=== PATIENT | female | born 2000 | race Caucasian/White ===

== ENCOUNTER 2019-06-28 17:02 | Emergency (ER) | payer SELFPAY ==
[2019-06-28 17:06] VITALS: BP 130/94; PULSE 107; RESP 16; TEMP 36.6; O2SAT 99; BMI 24.4
[2019-06-28 18:19] LABS: Basophils % 0.7 %; Eosinophils # 0.1 10^3/uL (0.0-0.8); Eosinophils % 2.5 %; Hematocrit 44.6 % (37.0-47.0); Hemoglobin 14.7 g/dL (11.5-15.3); Lymphocytes # 2.2 10^3/uL (0.8-4.8); Mean Corpuscular Hemoglobin 29.5 pg (28.0-34.0); Mean Corpuscular Volume 89.4 fL (81-99); Mean Platelet Volume 11.6 fL (7.4-10.4); Monocytes # 0.3 10^3/uL (0.2-0.9); Monocytes % 5.3 %; Neutrophils % 53.5 %; Nucleated Red Blood Cells % 0 %; Platelet Count 229 10^3/cmm (130-400); Red Blood Count 4.99 10^6/uL (4.1-5.3); Red Cell Distribution Width 12.9 % (12.1-15.1); White Blood Count 5.7 10^3/uL (4.0-10.0)
[2019-06-28 18:30] LABS: HCG Qualitative Urine. Negative (Negative)
[2019-06-28 18:35] LABS: Alanine Aminotransferase 8 U/L (0-33); Albumin Level 4.8 g/dL (3.5-5.2); Alkaline Phosphatase 86 IU/L (35-105); Anion Gap 13.9 (5-19); Aspartate Amino Transferase 12 U/L (0-32); Blood Urea Nitrogen 16 mg/dL (6-20); Calcium 9.8 mg/dL (8.5-10.5); Carbon Dioxide 26 mmol/L (22-29); Chloride 102 mmol/L (98-107); Globulin 2.8 g/dL (1.3-4.6); Glomerular Filtration Rate 105.6 mL/min (90-130); Glucose 127 mg/dL (65-115); Lipase 38 U/L (13-60); Potassium 3.9 mmol/L (3.5-5.1); Sodium 138 mmol/L (136-145); Total Bilirubin 0.4 mg/dL (0.15-1.2); Total Protein 7.6 g/dL (6.6-8.7)
--- NOTE | 2019-06-28 19:33 | ED_ITS ---
HPI - Abdominal Pain General: Chief Complaint: Abdominal Pain Stated Complaint: cramping Time Seen by Provider: 06/28/19 19:33 Source: patient Mode of arrival: ambulatory Limitations: no limitations History of Present Illness: HPI narrative: Patient presents with lower abdominal pain for the last 2 days. Patient has also had some whitish vaginal discharge. Patient denies any fever. Patient reports last period was May 16. Patient appears well. Patient appears in mild to moderate pain. Patient denies any vomiting or diarrhea. Associated Symptoms: Reports nausea Related Data: Date of Last Menstrual Period: 05/16/19 Review of Systems General: Reports: 10 or more systems reviewed and unremarkable except in HPI and below GI: Reports: nausea : Reports: vaginal discharge PFSH ED PFSH: Social History Smoking and tobacco status: current every day smoker Female Reproductive History: Date of last menstrual period: 05/16/19 Physical Exam Const: COMMON NORMALS: no apparent distress and oriented x3 GENERAL APPEARANCE: cooperative HENMT: COMMON NORMALS: normocephalic, external ears normal, EAC's normal, TM's normal bilaterally and external nose normal HEAD & SCALP: normal to inspection and normocephalic FACE & SINUS: normal facial exam NOSE: external nose normal GENERAL EAR: hearing not grossly impaired EXTERNAL EAR: Yes external ears normal EXTERNAL AUDITORY CANAL: EAC's normal TYMPANIC MEMBRANE: TM's normal bilaterally MOUTH: oral and palatal mucosa normal THROAT: posterior oropharynx normal Eye: COMMON NORMALS: PERRL and EOMs intact bilaterally PUPIL: Yes PERRL Neck/C-Spine: COMMON NORMALS: full ROM and no lymphadenopathy Lymph: LYMPHATIC: no lymphedema noted Chest: COMMONS NORMALS: inspection of chest normal and palpation of chest normal Resp: COMMON NORMALS: normal respiratory effort and clear to auscultation bilaterally AUSCULTATION: clear to auscultation bilaterally Cardio: COMMON NORMALS: regular rate and regular rhythm RATE: regular rate RHYTHM: regular rhythm GI: COMMON NORMALS: normal to inspection, nondistended, normoactive bowel sounds PALPATION: Yes tender (suprapubic area) : COMMON NORMALS: Yes no CVA tenderness BLADDER/KIDNEY EXAM: Yes no CVA tenderness EXTERNAL FEMALE EXAM: Yes normal appearance of the urethra SPECULUM EXAM - VAGINA: Yes vaginal tenderness (mild) and Yes vaginal discharge (light) Vaginal discharge present: malodorous (mild) Back/Pelvis: COMMON NORMALS: no CVA tenderness and thoracic and lumbar spine normal to inspection Extremity: COMMON NORMALS: normal to inspection GENERAL: No edema Neuro: COMMON NORMALS: oriented x3, moves all extremities and no focal motor deficits Psych: COMMON NORMALS: mental status grossly normal and cooperative Skin: COMMON NORMALS: no rashes or lesions noted GENERAL SKIN EXAM: no rashes or lesions noted Course Vital Signs: Vital signs: Vital Signs Temperature 97.9 F 06/28/19 17:06 Pulse Rate 74 06/28/19 21:17 Respiratory Rate 18 06/28/19 21:17 Blood Pressure 112/64 06/28/19 21:17 Pulse Oximetry 98 06/28/19 21:17 MDM - Abdominal Pain MDM Narrative: Medical decision making narrative: Patient comes in today with some vaginal discharge and some suprapubic pain. On exam patient appears well. Abdomen is soft with some suprapubic tenderness on palpation. Vital signs are stable with no fever. Differential diagnosis includes vaginitis, STI, candidiasis, UTI, threatened miscarriage. Patient was not on labs. Vitals were normal. Laboratory values were normal. Urinalysis was nonsignificant. Vaginal exam noted a positive whiff test. Wet prep did note clue cells. Reviewed exam with patient recommended treatment of clindamycin for bacterial vaginosis. Patient reports understanding agreed to plan. Lab Data: Labs: Lab Results 06/28/19 06/28/19 06/28/19 Range/Units 17:57 17:57 18:14 WBC 5.7 (4.0-10.0) 10^3/ uL RBC 4.99 (4.1-5.3) 10^6/u L Hgb 14.7 (11.5-15.3) g/dL Hct 44.6 (37.0-47.0) % MCV 89.4 (81-99) fL MCH 29.5 (28.0-34.0) pg MCHC 33.0 (30.0-36.0) g/dL RDW 12.9 (12.1-15.1) % Plt Count 229 (130-400) 10^3/c mm MPV 11.6 H (7.4-10.4) fL Neut % (Auto) 53.5 % Lymph % (Auto) 38.0 % [place] % (Auto) 5.3 % Eos % (Auto) 2.5 % Baso % (Auto) 0.7 % Neut # (Auto) 3.0 (1.8-7.7) 10^3/u L Lymph # (Auto) 2.2 (0.8-4.8) 10^3/u L [place] # (Auto) 0.3 (0.2-0.9) 10^3/u L Eos # (Auto) 0.1 (0.0-0.8) 10^3/u L Baso # (Auto) 0.0 (0.0-0.1) 10^3/u L Nucleated RBC % (a uto) 0 % Nucleated RBCs # 0.0 /100WBC Sodium 138 (136-145) mmol/L Potassium 3.9 (3.5-5.1) mmol/L Chloride 102 (98-107) mmol/L Carbon Dioxide 26 (22-29) mmol/L Anion Gap 13.9 (5-19) BUN 16 (6-20) mg/dL Creatinine 0.7 (0.5-0.9) mg/dL GFR Calculation 105.6 (90-130) mL/min Glucose 127 H (65-115) mg/dL Calcium 9.8 (8.5-10.5) mg/dL Total Bilirubin 0.4 (0.15-1.2) mg/dL AST 12 (0-32) U/L ALT 8 (0-33) U/L Alkaline Phosphata se 86 (35-105) IU/L Total Protein 7.6 (6.6-8.7) g/dL Albumin 4.8 (3.5-5.2) g/dL Globulin 2.8 (1.3-4.6) g/dL Lipase 38 (13-60) U/L HCG, Qual Negative (Negative) Discharge Plan Discharge Patient Disposition: Home, Self-Care Clinical Impression: Bacterial vaginitis Condition: Stable Prescriptions: New clindamycin HCl 150 mg capsule 150 mg PO Q8H 7 Days Qty: 21 RF: 0 Discharge Orders: Discharge Order (Routine); Ordered 06/28/19 Ordered By: John Khan Referrals: Bigg Dowell Jr, MD [Primary Care Provider] - Discharge Diet: Usual diet Discharge Activity: Increase activity as tolerated Patient Instructions: Bacterial Vaginosis (ED) Activity Restrictions/Additional Instructions: Avoid use of vaginal douche Drink plenty of fluids Activity as tolerated Antibiotics as directed Follow-up with primary care in one week for recheck Discharge Date/Time: 06/28/19 21:18 Coding Level of Care Code ED Carpenter Prototype for Minda Ibrahim Exam Problem Focused
[2019-06-28] MEDS: clindamycin 150 mg Capsule PO (21:12)
[2019-06-28 21:17] VITALS: BP 112/64; PULSE 74; RESP 18; O2SAT 98
[2019-06-29 06:01] LABS: Add Urine Microscopic? YES; Bilirubin Urine Neg (NEGATIVE); Blood Urine 2+ (Negative); Glucose Urine UA Norm (Normal); Ketones Urine Negative (Negative); Leukocyte Esterase Urine Negative (Negative); Nitrate Urine Negative (Negative); Protein Urine Neg (Negative); Urine Appearance Cloudy (CLEAR); Urine Color Yellow (Yellow); Urobilinogen Urine Norm (Negative); pH Urine 5 (5-7)
[2019-06-29 06:05] LABS: Add Urine Culture? No; RBC Urine 0-4 /hpf (0-2); Squamous Epithelial Cell Urine 0-4 (0-5); Transitional Epi Cells Urine 0-4 /hpf
[2019-06-29 06:18] LABS: Bacteria Urine TRACE
== END 2019-06-28 21:18 | disposition home or self-care (01) ==
PROVIDERS: Emergency Medicine; Emergency Provider Nurse Practitioner Family; Family Provider Family Medicine; PCP Family Medicine
DX: N76.0 Acute vaginitis (principal); F17.200 Nicotine dependence, unspecified, uncomplicated
CPT/HCPCS: 36415; 80053; 81001; 81025; 83690; 85025; 87210; 87491; 99283; A9270; E0352

== ENCOUNTER 2019-08-15 23:12 | Emergency (ER) | payer SELFPAY ==
[2019-08-15 23:16] VITALS: BP 126/85; PULSE 99; RESP 18; O2SAT 99; BMI 24.4
--- NOTE | 2019-08-15 23:18 | ED_ITS ---
HPI - Abdominal Pain General: Chief Complaint: Abdominal Pain Stated Complaint: abd pain Time Seen by Provider: 08/15/19 23:18 Source: patient Mode of arrival: ambulatory Limitations: no limitations History of Present Illness: HPI narrative: Patient comes in today with pelvic discomfort and nausea. Patient reports 3+ tests at home. Patient denies any vaginal bleeding. Patient appears well. Patient appears in no acute distress. Last period was June 16. Related Data: Date of Last Menstrual Period: 05/16/19 Review of Systems General: Reports: 10 or more systems reviewed and unremarkable except in HPI and below : Reports: urinary urgency PFSH ED PFSH: Social History Smoking and tobacco status: current every day smoker Female Reproductive History: Date of last menstrual period: 05/16/19 Physical Exam Const: COMMON NORMALS: no apparent distress and oriented x3 GENERAL APPEARANCE: cooperative HENMT: COMMON NORMALS: normocephalic, external ears normal, EAC's normal, TM's normal bilaterally and external nose normal HEAD & SCALP: normal to inspection and normocephalic FACE & SINUS: normal facial exam NOSE: external nose normal GENERAL EAR: hearing not grossly impaired EXTERNAL EAR: Yes external ears normal EXTERNAL AUDITORY CANAL: EAC's normal TYMPANIC MEMBRANE: TM's normal bilaterally MOUTH: oral and palatal mucosa normal THROAT: posterior oropharynx normal Eye: COMMON NORMALS: PERRL and EOMs intact bilaterally PUPIL: Yes PERRL Neck/C-Spine: COMMON NORMALS: full ROM and no lymphadenopathy Lymph: LYMPHATIC: no lymphedema noted Chest: COMMONS NORMALS: inspection of chest normal and palpation of chest normal Resp: COMMON NORMALS: normal respiratory effort and clear to auscultation bilaterally AUSCULTATION: clear to auscultation bilaterally Cardio: COMMON NORMALS: regular rate and regular rhythm RATE: regular rate RHYTHM: regular rhythm GI: COMMON NORMALS: normal to inspection, nondistended, normoactive bowel sounds and non-tender : COMMON NORMALS: Yes no CVA tenderness BLADDER/KIDNEY EXAM: Yes no CVA tenderness Back/Pelvis: COMMON NORMALS: no CVA tenderness and thoracic and lumbar spine normal to inspection Extremity: COMMON NORMALS: normal to inspection GENERAL: No edema Neuro: COMMON NORMALS: oriented x3, moves all extremities and no focal motor deficits Psych: COMMON NORMALS: mental status grossly normal and cooperative Skin: COMMON NORMALS: no rashes or lesions noted GENERAL SKIN EXAM: no rashes or lesions noted Course Vital Signs: Vital signs: Vital Signs Temperature 98.5 F 08/15/19 23:20 Pulse Rate 99 08/15/19 23:16 Respiratory Rate 18 08/15/19 23:16 Blood Pressure 126/85 08/15/19 23:16 Pulse Oximetry 99 08/15/19 23:16 MDM - Abdominal Pain MDM Narrative: Medical decision making narrative: Patient comes in for mild pelvic pain and positive test. Patient appears well. Abdomen is soft with mild suprapubic tenderness. Vital signs are normal. No fever. No vaginal bleeding. No pain with urination. DDx includes UTI, ectopic , threatened miscarriage in early , constipation. Labs noted mild decrease in potassium. CBC normal. HCG was 1200. US did not visualize ectopic or sack in uterus. Recommended patient return to ER in two days to recheck HCG and evaluate further for ectopic with repeat US unless need to return sooner. I reviewed this with Dr. Xie who suggested this action. Patient agrees to plan and recommendations. Lab Data: Labs: Lab Results 08/15/19 08/15/19 08/15/19 Range/Units 23:20 23:20 23:20 WBC 9.0 (4.0-10.0) 10^3/ uL RBC 4.58 (4.1-5.3) 10^6/u L Hgb 13.6 (11.5-15.3) g/dL Hct 41.5 (37.0-47.0) % MCV 90.6 (81-99) fL MCH 29.7 (28.0-34.0) pg MCHC 32.8 (30.0-36.0) g/dL RDW 12.3 (12.1-15.1) % Plt Count 225 (130-400) 10^3/c mm MPV 11.3 H (7.4-10.4) fL Neut % (Auto) 57.5 % Lymph % (Auto) 33.9 % [place] % (Auto) 6.6 % Eos % (Auto) 1.5 % Baso % (Auto) 0.3 % Neut # (Auto) 5.2 (1.8-7.7) 10^3/u L Lymph # (Auto) 3.0 (0.8-4.8) 10^3/u L [place] # (Auto) 0.6 (0.2-0.9) 10^3/u L Eos # (Auto) 0.1 (0.0-0.8) 10^3/u L Baso # (Auto) 0.0 (0.0-0.1) 10^3/u L Nucleated RBC % (a uto) 0 % Nucleated RBCs # 0.0 /100WBC Sodium 137 (136-145) mmol/L Potassium 3.3 L (3.5-5.1) mmol/L Chloride 102 (98-107) mmol/L Carbon Dioxide 25 (22-29) mmol/L Anion Gap 13.3 (5-19) BUN 14 (6-20) mg/dL Creatinine 0.7 (0.5-0.9) mg/dL GFR Calculation 105.6 (90-130) mL/min Glucose 98 (65-115) mg/dL Calculated Osmolal ity 280 L (285-295) mOsm/k g Calcium 9.2 (8.5-10.5) mg/dL Total Bilirubin 0.4 (0.15-1.2) mg/dL AST 11 (0-32) U/L ALT 6 (0-33) U/L Alkaline Phosphata se 83 (35-105) IU/L Total Protein 6.7 (6.6-8.7) g/dL Albumin 4.5 (3.5-5.2) g/dL Globulin 2.2 (1.3-4.6) g/dL Lipase 50 (13-60) U/L HCG, Qual Positive H (Negative) Ser , Colleen i-Qnt mIU/mL Urine Color (Yellow) Urine Appearance (CLEAR) Urine pH (5-7) Ur Specific Gravit y (1.005-1.030) Urine Protein (Negative) Urine Glucose (UA) (Normal) Urine Ketones (Negative) Urine Blood (Negative) Urine Nitrate (Negative) Urine Bilirubin (NEGATIVE) Urine Urobilinogen (Negative) mg/dL Ur Leukocyte Britni ase (Negative) Urine RBC (0-2) /hpf Urine WBC (0-5) /hpf Ur Squamous Epith Cells (0-5) Urine Bacteria (NONE) Urine Mucus 08/15/19 08/16/19 Range/Units 23:20 00:21 WBC (4.0-10.0) 10^3/ uL RBC (4.1-5.3) 10^6/u L Hgb (11.5-15.3) g/dL Hct (37.0-47.0) % MCV (81-99) fL MCH (28.0-34.0) pg MCHC (30.0-36.0) g/dL RDW (12.1-15.1) % Plt Count (130-400) 10^3/c mm MPV (7.4-10.4) fL Neut % (Auto) % Lymph % (Auto) % [place] % (Auto) % Eos % (Auto) % Baso % (Auto) % Neut # (Auto) (1.8-7.7) 10^3/u L Lymph # (Auto) (0.8-4.8) 10^3/u L [place] # (Auto) (0.2-0.9) 10^3/u L Eos # (Auto) (0.0-0.8) 10^3/u L Baso # (Auto) (0.0-0.1) 10^3/u L Nucleated RBC % (a uto) % Nucleated RBCs # /100WBC Sodium (136-145) mmol/L Potassium (3.5-5.1) mmol/L Chloride (98-107) mmol/L Carbon Dioxide (22-29) mmol/L Anion Gap (5-19) BUN (6-20) mg/dL Creatinine (0.5-0.9) mg/dL GFR Calculation (90-130) mL/min Glucose (65-115) mg/dL Calculated Osmolal ity (285-295) mOsm/k g Calcium (8.5-10.5) mg/dL Total Bilirubin (0.15-1.2) mg/dL AST (0-32) U/L ALT (0-33) U/L Alkaline Phosphata se (35-105) IU/L Total Protein (6.6-8.7) g/dL Albumin (3.5-5.2) g/dL Globulin (1.3-4.6) g/dL Lipase (13-60) U/L HCG, Qual (Negative) Ser , Colleen i-Qnt 1295.00 mIU/mL Urine Color Yellow (Yellow) Urine Appearance Hazy A (CLEAR) Urine pH 5 (5-7) Ur Specific Gravit y 1.020 (1.005-1.030) Urine Protein Neg (Negative) Urine Glucose (UA) Norm (Normal) Urine Ketones Negative (Negative) Urine Blood Neg (Negative) Urine Nitrate Negative (Negative) Urine Bilirubin Neg (NEGATIVE) Urine Urobilinogen Norm (Negative) mg/dL Ur Leukocyte Britni ase Negative (Negative) Urine RBC 0-4 H (0-2) /hpf Urine WBC None (0-5) /hpf Ur Squamous Epith Cells 5-10 H (0-5) Urine Bacteria Trace (NONE) Urine Mucus 4+ Discharge Plan Discharge Patient Disposition: Home, Self-Care Clinical Impression: Threatened in early Condition: Stable Referrals: Bigg Dowell Jr, MD [Primary Care Provider] - Discharge Diet: Usual diet Discharge Activity: Increase activity as tolerated Patient Instructions: Threatened Miscarriage (ED) Activity Restrictions/Additional Instructions: Return to ER in two days for recheck on quantitative HCG and US to rule out ectopic , return earlier for worsening pain, high fever, or bleeding saturating more than one pad an hour Drink plenty of fluids Follow-up as needed with primary care Case management will contact you for help with OB-MESS ATTENDANT follow-up Coding Level of Care Code ED Auto Air Conditioning Apprentice for Seag Fwd Exam Comprehensive
[2019-08-15 23:20] VITALS: TEMP 36.9
--- NOTE | 2019-08-15 23:20 | PC.NURSE ---
Introduced self to patient and initiated vital signs. Patient presents A&O x 4. NAD, ABCs intact, MAEW and agreeable to treatment. Respirations are even and unlabored. Pt states that the chief complaint for the ER visit today is due to abdominal pain for 2x days. 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 Pt denies any vision disturbances or lightheadedness. Bed left in lowest position in semi-fowlers with side rails up.Reassured patient of needs and will continue to monitor. Awaiting provider at bedside.
[2019-08-15 23:35] LABS: Basophils % 0.3 %; Eosinophils # 0.1 10^3/uL (0.0-0.8); Eosinophils % 1.5 %; Hematocrit 41.5 % (37.0-47.0); Hemoglobin 13.6 g/dL (11.5-15.3); Lymphocytes % 33.9 %; Mean Corpuscular HGB Conc 32.8 g/dL (30.0-36.0); Mean Corpuscular Hemoglobin 29.7 pg (28.0-34.0); Mean Corpuscular Volume 90.6 fL (81-99); Mean Platelet Volume 11.3 fL (7.4-10.4); Monocytes # 0.6 10^3/uL (0.2-0.9); Monocytes % 6.6 %; Neutrophils # 5.2 10^3/uL (1.8-7.7); Neutrophils % 57.5 %; Nucleated Red Blood Cells % 0 %; Platelet Count 225 10^3/cmm (130-400); Red Blood Count 4.58 10^6/uL (4.1-5.3); Red Cell Distribution Width 12.3 % (12.1-15.1)
[2019-08-15 23:44] VITALS: O2SAT 98
[2019-08-15 23:44] LABS: HCG, Serum Qual Positive (Negative)
[2019-08-15 23:45] VITALS: O2SAT 98
[2019-08-15 23:49] LABS: Alanine Aminotransferase 6 U/L (0-33); Albumin Level 4.5 g/dL (3.5-5.2); Alkaline Phosphatase 83 IU/L (35-105); Anion Gap 13.3 (5-19); Aspartate Amino Transferase 11 U/L (0-32); Blood Urea Nitrogen 14 mg/dL (6-20); Calcium 9.2 mg/dL (8.5-10.5); Carbon Dioxide 25 mmol/L (22-29); Chloride 102 mmol/L (98-107); Globulin 2.2 g/dL (1.3-4.6); Glomerular Filtration Rate 105.6 mL/min (90-130); Glucose 98 mg/dL (65-115); Lipase 50 U/L (13-60); Osmolality Calculated 280 mOsm/kg (285-295); Potassium 3.3 mmol/L (3.5-5.1); Sodium 137 mmol/L (136-145); Total Bilirubin 0.4 mg/dL (0.15-1.2); Total Protein 6.7 g/dL (6.6-8.7)
--- NOTE | 2019-08-15 23:50 | PC.NURSE ---
Pt states being .
[2019-08-16] MEDS: sodium chloride 0.9% 1,000 ML 999 ML IV
[2019-08-16 00:33] VITALS: O2SAT 98
[2019-08-16 00:35] VITALS: O2SAT 97
[2019-08-16 01:12] LABS: Bilirubin Urine Neg (NEGATIVE); Blood Urine Neg (Negative); Glucose Urine UA Norm (Normal); Ketones Urine Negative (Negative); Leukocyte Esterase Urine Negative (Negative); Nitrate Urine Negative (Negative); Protein Urine Neg (Negative); Urine Appearance Hazy (CLEAR); Urine Color Yellow (Yellow); Urobilinogen Urine Norm (Negative); pH Urine 5 (5-7)
[2019-08-16 01:13] LABS: Bacteria Urine TRACE; Mucus Urine 4+; RBC Urine 0-4 /hpf (0-2)
[2019-08-16 01:14] LABS: Add Urine Culture? No
--- NOTE | 2019-08-16 12:34 | DCPLANNER ---
wind power project manager had message to speak with patient about about getting an OB / NAPHTHALENE OPERATOR HELPER. wind power project manager spoke with patient about getting a OB physician. Patient stated that she has seen Dr. Kaminski in the past and would like to see him again. wind power project manager called [facility], spoke with Nano, gave clinic patients information. wind power project manager was told that information would be left for Daly to review. Clinic will call case finishing machine adjuster and patient with appointment information.
--- NOTE | 2019-08-16 23:51 | US_ITS ---
WS: [id number] Obstetrical ultrasound, limited. HISTORY: Elevated beta hCG. Pelvic pain. Transvaginal imaging reveals a normal uterus with normal endometrium. Endometrium is slightly thicken ed at 1.6 cm. There is a very tiny cystic area in the distal endometrium. No gestational sac is ident ified. RIGHT ovary measures 2.8 x 2.3 x 2.0 cm. Numerous peripheral follicles in the RIGHT ovary. There is a dditional mixed echogenic soft tissue adjacent to the RIGHT ovary along its inferior aspect with incr eased vascularity. LEFT ovary measures 3.3 x 2.5 x 2.1 cm. Small amount of free fluid in the pelvis with low-level echoes. US/US OB transvaginal [id number] IMPRESSION: 1. No intrauterine gestation. With positive beta hCG ectopic should b e excluded. 2. Increased hypervascular soft tissue in the RIGHT adnexa inferior to the ovar y. Cannot exclude ectopic . Evaluation by SENIOR UI SOFTWARE ENGINEER and serial beta hCG a nd ultrasound evaluation should be considered. 3. Small amount of complex free fluid in the pelvis.
--- NOTE | 2019-08-21 11:22 | DCPLANNER ---
Daly from [facility] called bilingual case manager with appointment information. A follow up appointment is scheduled for Tuesday, September 10, 2019 at 8:15 with Gena Wilson. Clinic will call patient with appointment information.
--- NOTE | 2019-09-27 15:52 | DCPLANNER ---
Patient attended appointment with [facility]
== END 2019-08-16 01:36 | disposition home or self-care (01) ==
PROVIDERS: Emergency Medicine; Emergency Provider Nurse Practitioner Family; Family Provider Family Medicine; PCP Family Medicine
DX: O20.0 Threatened abortion (principal); O99.331 Smoking (tobacco) complicating pregnancy, first trimester; Z3A.01 Less than 8 weeks gestation of pregnancy; F17.200 Nicotine dependence, unspecified, uncomplicated
CPT/HCPCS: 12345; 76817; 80053; 81001; 83690; 84702; 84703; 85025; 96360; 99283; 99284; J7030

== ENCOUNTER 2019-08-18 11:05 | Emergency (ER) | payer MEDICAID, SELFPAY ==
[2019-08-18 11:09] VITALS: BP 138/99; PULSE 92; RESP 16; TEMP 36.9; O2SAT 98; BMI 24.4
--- NOTE | 2019-08-18 11:10 | W.ED.GENADLT ---
HPI - General Adult General: Chief complaint: General Medical Stated complaint: LAB RECHECK Time Seen by Provider: 08/18/19 11:09 Source: patient Mode of arrival: ambulatory Limitations: no limitations History of Present Illness: HPI narrative: Patient comes back for a recheck on . Patient was seen 2 to 3 days ago for some lower abdominal discomfort and positive test at home. At that time hCG level was 1200 and no visible sac was noted in the uterus, it was recommended that patient return in 2 days for repeat hCG level and repeat ultrasound for evaluation for ectopic . Patient reports no significant pain or abnormal bleeding. Patient denies any fever. Review of Systems General: Reports: 10 or more systems reviewed and unremarkable except in HPI and below : Reports: pelvic pain () PFSH ED PFSH: Social History Smoking and tobacco status: former smoker Female Reproductive History: Date of last menstrual period: 05/16/19 Physical Exam Const: COMMON NORMALS: no apparent distress and oriented x3 GENERAL APPEARANCE: cooperative HENMT: COMMON NORMALS: normocephalic, external ears normal, EAC's normal, TM's normal bilaterally and external nose normal HEAD & SCALP: normal to inspection and normocephalic FACE & SINUS: normal facial exam NOSE: external nose normal GENERAL EAR: hearing not grossly impaired EXTERNAL EAR: Yes external ears normal EXTERNAL AUDITORY CANAL: EAC's normal TYMPANIC MEMBRANE: TM's normal bilaterally MOUTH: oral and palatal mucosa normal THROAT: posterior oropharynx normal Eye: COMMON NORMALS: PERRL and EOMs intact bilaterally PUPIL: Yes PERRL Neck/C-Spine: COMMON NORMALS: full ROM and no lymphadenopathy Lymph: LYMPHATIC: no lymphedema noted Chest: COMMONS NORMALS: inspection of chest normal and palpation of chest normal Resp: COMMON NORMALS: normal respiratory effort and clear to auscultation bilaterally AUSCULTATION: clear to auscultation bilaterally Cardio: COMMON NORMALS: regular rate and regular rhythm RATE: regular rate RHYTHM: regular rhythm GI: COMMON NORMALS: normal to inspection, nondistended, normoactive bowel sounds and non-tender : COMMON NORMALS: Yes no CVA tenderness BLADDER/KIDNEY EXAM: Yes no CVA tenderness Back/Pelvis: COMMON NORMALS: no CVA tenderness and thoracic and lumbar spine normal to inspection Extremity: COMMON NORMALS: normal to inspection GENERAL: No edema Neuro: COMMON NORMALS: oriented x3, moves all extremities and no focal motor deficits Psych: COMMON NORMALS: mental status grossly normal and cooperative Skin: COMMON NORMALS: no rashes or lesions noted GENERAL SKIN EXAM: no rashes or lesions noted Course Vital Signs: Vital signs: Vital Signs Temperature 98.5 F 08/18/19 11:09 Pulse Rate 83 08/18/19 12:36 Respiratory Rate 16 08/18/19 12:36 Blood Pressure 113/75 08/18/19 12:36 Pulse Oximetry 98 08/18/19 12:36 MDM - General Adult MDM Narrative: Medical decision making narrative: Patient comes in for repeat evaluation of early . Patient was seen 2 days ago and a gestational sac could not be visualized in the uterus they recommend recheck in 2 days for hCG level and visualization of the gestational sac in the uterus. Patient denied any problems or pain. Exam was normal. Vital signs were normal. Differential diagnosis includes threatened /miscarriage, UTI, early , ectopic . hCG level had increased to 3664, urinalysis was normal. Ultrasound did note a gestational sac that noted an age of 5 weeks 1 day but no pole was noted at this time. Reviewed exam with patient recommended follow-up with [facility] or to return to the ER for increased abdominal pain, fever or abnormal bleeding. Patient reported understanding. Lab Data: Labs: Lab Results 08/18/19 08/18/19 Range/Units 11:26 12:00 Ser , Colleen i-Qnt 3664.00 mIU/mL Urine Color Yellow (Yellow) Urine Appearance Clear (CLEAR) Urine pH 6.0 (5-7) Ur Specific Gravit y 1.025 (1.005-1.030) Urine Protein Neg (Negative) Urine Glucose (UA) Norm (Normal) Urine Ketones Negative (Negative) Urine Blood Neg (Negative) Urine Nitrate Negative (Negative) Urine Bilirubin Neg (NEGATIVE) Urine Urobilinogen Norm (Negative) mg/dL Ur Leukocyte Britni ase Negative (Negative) Discharge Plan Discharge Patient Disposition: Home, Self-Care Clinical Impression: Threatened in early Condition: Stable Prescriptions: No Action No Known Home Medications RF: 0 Discharge Orders: Discharge Order (Routine); Ordered 08/18/19 Ordered By: John Khan Referrals: Bigg Dowell Jr, MD [Primary Care Provider] - Discharge Diet: Usual diet Discharge Activity: Increase activity as tolerated Patient Instructions: (ED) Activity Restrictions/Additional Instructions: Avoid smoking and alcohol use Healthy diet Follow-up with ob for care Return to ER for abnormal bleeding, or high fever Discharge Date/Time: 08/18/19 12:41 Coding Level of Care Code ED Vinyl Top Installer for Minda Fwd Exam Comprehensive
--- NOTE | 2019-08-18 11:11 | USR_ITS ---
PROCEDURE INFORMATION: Exam: US First Trimester, Transabdominal and US , Transvaginal Exam date and time: 08/18/2019 11:21 AM Age: 19 years old Clinical indication: complicated by abdominal or pelvic pain; Left lower quadrant; First trimester; Gestational age or lmp: Unclear; ; Patient HX: Prior US 08-16-19; Additional info: Early , R/O ectopic TECHNIQUE: Imaging protocol: Real-time transabdominal obstetrical ultrasound of the maternal pelvis and a first trimester , less than 14 weeks 0 days, with image documentation. Transvaginal imaging was used for better evaluation of the fetus and adnexa. COMPARISON: US OB transvaginal [id number] 08/16/2019 12:26 AM FINDINGS: GESTATION: Gestation: Possible very early intrauterine gestation. Heart rate: Not applicable yet. Placenta: Not applicable yet. Amniotic fluid: Not applicable yet. BIOMETRY: Estimated gestational age: Estimated gestational age based upon possible gestational sac size is 5 weeks 1 day. MATERNAL: Uterus: The uterus is retroflexed. The endometrium measures 18 mm in thickness. On the transvaginal portion of the study there is a small sac-like fluid collection centered on the endometrium which could be a gestational sac. No yolk sac or pole however demonstrated. Cervix: Unremarkable. Right adnexa: The right ovary measures 2.3 cm x 1.9 cm x 3.7 cm in size. Follicles present. Blood flow detected on color flow Doppler ultrasound and pulse-wave Doppler spectral analysis. No adnexal mass or fluid collection. Left adnexa: The left ovary measures 1.9 cm x 1.8 cm x 3.1 cm in size. Follicles present. Blood flow detected on color flow Doppler ultrasound and pulse-wave Doppler spectral analysis. No adnexal mass or fluid collection. Intraperitoneal: No free fluid in the cul-de-sac. US/US pelvis lmt w transvag IMPRESSION: Potential very early gestational sac present in the uterus, with an estimated age of 5 weeks 1 day. However, a pole is not demonstrated as of yet. Consider short-term ultrasound follow-up.
[2019-08-18 11:17] VITALS: BP 138/99; RESP 17; O2SAT 100
--- NOTE | 2019-08-18 11:28 | PC.NURSE ---
US at bedside
[2019-08-18 11:47] VITALS: RESP 17
[2019-08-18 12:04] LABS: Add Urine Microscopic? NO
[2019-08-18 12:10] LABS: Bilirubin Urine Neg (NEGATIVE); Blood Urine Neg (Negative); Glucose Urine UA Norm (Normal); Ketones Urine Negative (Negative); Leukocyte Esterase Urine Negative (Negative); Nitrate Urine Negative (Negative); Protein Urine Neg (Negative); Specific Gravity, Urine 1.025 (1.005-1.030); Urine Appearance Clear (CLEAR); Urine Color Yellow (Yellow); Urobilinogen Urine Norm (Negative)
[2019-08-18 12:20] VITALS: RESP 16
[2019-08-18 12:36] VITALS: BP 113/75; PULSE 83; RESP 16; O2SAT 98
--- NOTE | 2019-08-20 14:02 | DCPLANNER ---
senior research project manager had message to schedule a follow up appointment for patient with [facility]. senior research project manager has already made a referral to [facility] from a previous visit.
== END 2019-08-18 12:41 | disposition home or self-care (01) ==
LOC: ER 12:39
PROVIDERS: Emergency Provider Nurse Practitioner Family; Family Provider Family Medicine; PCP Family Medicine
DX: O20.0 Threatened abortion (principal); Z3A.01 Less than 8 weeks gestation of pregnancy
CPT/HCPCS: 12345; 36415; 76830; 76857; 81003; 84702; 99281; 99282; 99283; A9270

== ENCOUNTER → 2019-09-11 14:07 | Outpatient (BNVA) | payer MEDICAID, SELFPAY | PROVIDERS: Family Provider Family Medicine; PCP Family Medicine; Visit Provider Nurse Practitioner Women's Health | DX: O99.340 Other mental disorders complicating pregnancy, unspecified trimester (principal); O09.899 Supervision of other high risk pregnancies, unspecified trimester; O99.331 Smoking (tobacco) complicating pregnancy, first trimester; Z3A.08 8 weeks gestation of pregnancy | CPT/HCPCS: 81000 ==

== ENCOUNTER → 2019-09-24 15:30 | Outpatient (BNVA) | payer MEDICAID, SELFPAY | PROVIDERS: Family Provider Family Medicine; PCP Family Medicine; Visit Provider Obstetrics & Gynecology | DX: Z34.90 Encounter for supervision of normal pregnancy, unspecified, unspecified trimester (principal) | CPT/HCPCS: 76817; 80053; 80307; 84315; 85027; 86592; 86762; 86803; 86850; 86900; 87340; 87806 ==

== ENCOUNTER → 2019-09-25 13:23 | Outpatient (BNVA) | payer MEDICAID, SELFPAY | PROVIDERS: Family Provider Family Medicine; PCP Family Medicine; Visit Provider Obstetrics & Gynecology | DX: Z34.90 Encounter for supervision of normal pregnancy, unspecified, unspecified trimester (principal) | CPT/HCPCS: 84702 ==

== ENCOUNTER 2019-10-01 23:40 | Emergency (ER) | payer MEDICAID, SELFPAY ==
[2019-10-01 23:45] VITALS: BP 118/74; PULSE 100; RESP 16; TEMP 36.8; O2SAT 100; BMI 21.0
--- NOTE | 2019-10-01 23:47 | W.ED.PREGNAN ---
HPI - General: Chief complaint: Abdominal Pain Stated complaint: abd pain and back pain, preg x 10 weeks Time Seen by Provider: 10/01/19 23:45 Source: patient Mode of arrival: ambulatory Limitations: no limitations History of Present Illness: HPI Narrative: Patient comes in today for complaints of suprapubic and low back pain. Patient is about 8 to 10 weeks . Patient comes in for concerns of her . Patient does report some vaginal discharge is brownish in color. Review of labs from previous blood work and tests it was noted that she had a case of bacterial vaginosis at the end of August when questioned about this patient said that she was not treated for it. Patient then was noted to have blood drawn on the and it was seen that her hCG was 65,000. Ultrasound done when patient was last in the emergency department noted a that was approximately 5 weeks. MD Complaint: vaginal discharge Date of Last Menstrual Period: 05/16/19 Associated symptoms: Reports vaginal discharge Review of Systems General: Reports: 10 or more systems reviewed and unremarkable except in HPI and below : Reports: vaginal discharge and pelvic pain [facility] ED PFSH: Medical History (Updated 10/02/19 @ 02:13 by ROSARIO Dailey) Depression Surgical History [place] teeth removed wisdom teeth removed in [place], [place] Family History Grandmother Uterine cancer Maternal great grandmother Father Diabetes Other Heart disease Denies family history of Colon cancer Ovarian cancer Hyperlipidemia Breast cancer Family history of thyroid problem Hypertension Stroke Social History Smoking and tobacco status: never smoked Quit status (tobacco): has quit using tobacco Former quit date comment: July 2019-- was up to 1/2 ppd Alcohol intake: never Female Reproductive History: Date of last menstrual period: 05/16/19 Physical Exam Const: COMMON NORMALS: no acute distress and patient oriented x3 GENERAL APPEARANCE: cooperative HENMT: COMMON NORMALS: normocephalic and Normal external nose present HEAD & SCALP: normal to inspection and normocephalic NOSE: Normal external nose present MOUTH: Normal oral and palatal mucosa present Eye: GENERAL EYE: appearance normal, both eyes and all related structures Neck/C-Spine: COMMON NORMALS: full ROM Chest: COMMONS NORMALS: normal inspection of the chest Resp: COMMON NORMALS: normal respiratory effort EFFORT & INSPECTION: Yes able to speak in complete sentences Cardio: COMMON NORMALS: regular rate and regular rhythm RATE: regular rate RHYTHM: regular rhythm GI: COMMON NORMALS: non-tender : COMMON NORMALS: Yes no CVA tenderness BLADDER/KIDNEY EXAM: Yes no CVA tenderness Back/Pelvis: COMMON NORMALS: no CVA tenderness and thoracic and lumbar spine normal to inspection Extremity: COMMON NORMALS: normal to inspection Neuro: COMMON NORMALS: patient oriented x3 and moves all extremities Psych: COMMON NORMALS: mental status grossly normal and cooperative Skin: COMMON NORMALS: no rashes or lesions noted GENERAL SKIN EXAM: no rashes or lesions noted Course Vital Signs: Vital signs: Vital Signs Temperature 98.2 F 10/01/19 23:45 Pulse Rate 100 10/01/19 23:45 Respiratory Rate 16 10/01/19 23:45 Blood Pressure 118/74 10/01/19 23:45 Pulse Oximetry 100 10/01/19 23:45 MDM - OB/Uterine Contractions MDM Narrative: Medical decision making narrative: Patient comes in for some vaginal discharge and some pelvic pain and discomfort. Exam notes abdomen soft nontender except in the suprapubic area. Vital signs are normal. Skin is warm and dry. Differential diagnosis includes but not limited to urinary tract infection, threatened , PID, BV. Review of the record notes the patient is about 10 weeks . Patient's last hCG on the was 65,000. Laboratory values confirms positive hCG level, and normal CBC and CMP. Urinalysis had white blood cells and trace of red blood cells. Suspect patient has a urinary tract infection. Ultrasound of the pelvis noted a blighted ovum and a gestational sac with pole with about 6 weeks . Reviewed this with patient recommended follow-up with CERTIFIED REGISTERED [facility]SM[facility] for further evaluation and treatment regarding the abnormal ultrasound. We will treat with Keflex for the urinary tract infection. Patient reported understanding. Lab Data: Labs: Lab Results 10/01/19 10/01/19 10/01/19 Range/Units 00:07 00:07 00:07 WBC 6.3 (4.0-10.0) 10^3/ uL RBC 4.80 (4.1-5.3) 10^6/u L Hgb 14.7 (11.5-15.3) g/dL Hct 43.3 (37.0-47.0) % MCV 90.2 (81-99) fL MCH 30.6 (28.0-34.0) pg MCHC 33.9 (30.0-36.0) g/dL RDW 12.5 (12.1-15.1) % Plt Count 228 (130-400) 10^3/c mm MPV 11.4 H (7.4-10.4) fL Neut % (Auto) 66.2 % Lymph % (Auto) 28.5 % [place] % (Auto) 4.6 % Eos % (Auto) 0.2 % Baso % (Auto) 0.2 % Neut # (Auto) 4.2 (1.8-7.7) 10^3/u L Lymph # (Auto) 1.8 (0.8-4.8) 10^3/u L [place] # (Auto) 0.3 (0.2-0.9) 10^3/u L Eos # (Auto) 0.0 (0.0-0.8) 10^3/u L Baso # (Auto) 0.0 (0.0-0.1) 10^3/u L Nucleated RBC % (a uto) 0 % Nucleated RBCs # 0.0 /100WBC Sodium 140 (136-145) mmol/L Potassium 3.6 (3.5-5.1) mmol/L Chloride 102 (98-107) mmol/L Carbon Dioxide 22 (22-29) mmol/L Anion Gap 19.6 H (5-19) BUN 10 (6-20) mg/dL Creatinine 0.5 (0.5-0.9) mg/dL GFR Calculation 155.7 H (90-130) mL/min Glucose 90 (65-115) mg/dL Calculated Osmolal ity 286 (285-295) mOsm/k g Calcium 9.4 (8.5-10.5) mg/dL Total Bilirubin 0.8 (0.15-1.2) mg/dL AST 12 (0-32) U/L ALT < 5 (0-33) U/L Alkaline Phosphata se 64 (35-105) IU/L Total Protein 7.4 (6.6-8.7) g/dL Albumin 5.1 (3.5-5.2) g/dL Globulin 2.3 (1.3-4.6) g/dL HCG, Qual Positive H (Negative) Urine Color (Yellow) Urine Appearance (CLEAR) Urine pH (5-7) Ur Specific Gravit y (1.005-1.030) Urine Protein (Negative) Urine Glucose (UA) (Normal) Urine Ketones (Negative) Urine Blood (Negative) Urine Nitrate (Negative) Urine Bilirubin (NEGATIVE) Urine Urobilinogen (Negative) mg/dL Ur Leukocyte Britni ase (Negative) Urine RBC (0-2) /hpf Urine WBC (0-5) /hpf Ur Squamous Epith Cells (0-5) Urine Bacteria (NONE) Urine Mucus 10/01/19 Range/Units 23:45 WBC (4.0-10.0) 10^3/ uL RBC (4.1-5.3) 10^6/u L Hgb (11.5-15.3) g/dL Hct (37.0-47.0) % MCV (81-99) fL MCH (28.0-34.0) pg MCHC (30.0-36.0) g/dL RDW (12.1-15.1) % Plt Count (130-400) 10^3/c mm MPV (7.4-10.4) fL Neut % (Auto) % Lymph % (Auto) % [place] % (Auto) % Eos % (Auto) % Baso % (Auto) % Neut # (Auto) (1.8-7.7) 10^3/u L Lymph # (Auto) (0.8-4.8) 10^3/u L [place] # (Auto) (0.2-0.9) 10^3/u L Eos # (Auto) (0.0-0.8) 10^3/u L Baso # (Auto) (0.0-0.1) 10^3/u L Nucleated RBC % (a uto) % Nucleated RBCs # /100WBC Sodium (136-145) mmol/L Potassium (3.5-5.1) mmol/L Chloride (98-107) mmol/L Carbon Dioxide (22-29) mmol/L Anion Gap (5-19) BUN (6-20) mg/dL Creatinine (0.5-0.9) mg/dL GFR Calculation (90-130) mL/min Glucose (65-115) mg/dL Calculated Osmolal ity (285-295) mOsm/k g Calcium (8.5-10.5) mg/dL Total Bilirubin (0.15-1.2) mg/dL AST (0-32) U/L ALT (0-33) U/L Alkaline Phosphata se (35-105) IU/L Total Protein (6.6-8.7) g/dL Albumin (3.5-5.2) g/dL Globulin (1.3-4.6) g/dL HCG, Qual (Negative) Urine Color Yellow (Yellow) Urine Appearance Sl hazy (CLEAR) Urine pH 5 (5-7) Ur Specific Gravit y 1.025 (1.005-1.030) Urine Protein Neg (Negative) Urine Glucose (UA) Norm (Normal) Urine Ketones 3+ H (Negative) Urine Blood 3+ H (Negative) Urine Nitrate Negative (Negative) Urine Bilirubin Neg (NEGATIVE) Urine Urobilinogen Norm (Negative) mg/dL Ur Leukocyte Britni ase Negative (Negative) Urine RBC 0-4 H (0-2) /hpf Urine WBC 10-15 H (0-5) /hpf Ur Squamous Epith Cells 0-4 H (0-5) Urine Bacteria 1+ H (NONE) Urine Mucus 3+ Discharge Plan Discharge Patient Disposition: Home, Self-Care Clinical Impression: UTI (urinary tract infection) Qualifiers: Urinary tract infection type: acute cystitis Hematuria presence: without hematuria Qualified Code(s): N30.00 - Acute cystitis without hematuria Condition: Stable Prescriptions: New cephalexin 500 mg capsule 500 mg PO BID 7 Days Qty: 14 RF: 0 No Action Gummies 400 mcg-35 mg- 25 mg-5 mg tablet,chewable 2 tab PO RF: 0 Discharge Orders: Discharge Order (Routine); Ordered 10/02/19 Ordered By: John Khan Referrals: Bigg Dowell Jr, MD [Primary Care Provider] - Discharge Diet: Usual diet Discharge Activity: Increase activity as tolerated Patient Instructions: Urinary Tract Infection in Women (ED) Activity Restrictions/Additional Instructions: Drink plenty of water. Contact CERTIFIED REGISTERED LOCKSMITH's office in the morning for follow-up appointment. Return to the ER for high fever, worsening symptoms, or new concerns. Coding Level of Care Code ED Rate Examiner for Minda Fwd Exam Comprehensive
[2019-10-02 00:27] LABS: Basophils % 0.2 %; Eosinophils % 0.2 %; Hematocrit 43.3 % (37.0-47.0); Hemoglobin 14.7 g/dL (11.5-15.3); Lymphocytes # 1.8 10^3/uL (0.8-4.8); Lymphocytes % 28.5 %; Mean Corpuscular HGB Conc 33.9 g/dL (30.0-36.0); Mean Corpuscular Hemoglobin 30.6 pg (28.0-34.0); Mean Corpuscular Volume 90.2 fL (81-99); Mean Platelet Volume 11.4 fL (7.4-10.4); Monocytes # 0.3 10^3/uL (0.2-0.9); Monocytes % 4.6 %; Neutrophils # 4.2 10^3/uL (1.8-7.7); Neutrophils % 66.2 %; Nucleated Red Blood Cells % 0 %; Platelet Count 228 10^3/cmm (130-400); Red Cell Distribution Width 12.5 % (12.1-15.1); White Blood Count 6.3 10^3/uL (4.0-10.0)
[2019-10-02 00:29] LABS: Add Urine Microscopic? YES; Bacteria Urine 1+; Bilirubin Urine Neg (NEGATIVE); Blood Urine 3+ (Negative); Glucose Urine UA Norm (Normal); Ketones Urine 3+ (Negative); Leukocyte Esterase Urine Negative (Negative); Mucus Urine 3+; Nitrate Urine Negative (Negative); Protein Urine Neg (Negative); RBC Urine 0-4 /hpf (0-2); Specific Gravity, Urine 1.025 (1.005-1.030); Squamous Epithelial Cell Urine 0-4 (0-5); Urine Appearance SL Hazy (CLEAR); Urine Color Yellow (Yellow); Urobilinogen Urine Norm (Negative); pH Urine 5 (5-7)
[2019-10-02 00:43] LABS: HCG, Serum Qual Positive (Negative)
[2019-10-02 00:47] LABS: Alanine Aminotransferase < 5 U/L (0-33); Albumin Level 5.1 g/dL (3.5-5.2); Alkaline Phosphatase 64 IU/L (35-105); Anion Gap 19.6 (5-19); Aspartate Amino Transferase 12 U/L (0-32); Blood Urea Nitrogen 10 mg/dL (6-20); Calcium 9.4 mg/dL (8.5-10.5); Carbon Dioxide 22 mmol/L (22-29); Chloride 102 mmol/L (98-107); Creatinine Clr Calc Pharmacy 149.0018; Globulin 2.3 g/dL (1.3-4.6); Glomerular Filtration Rate 155.7 mL/min (90-130); Glucose 90 mg/dL (65-115); Osmolality Calculated 286 mOsm/kg (285-295); Potassium 3.6 mmol/L (3.5-5.1); Sodium 140 mmol/L (136-145); Total Bilirubin 0.8 mg/dL (0.15-1.2); Total Protein 7.4 g/dL (6.6-8.7)
[2019-10-02] MEDS: cephALEXin 500 mg Capsule PO (02:23)
[2019-10-02 02:30] VITALS: PULSE 72; RESP 16; O2SAT 96
--- NOTE | 2019-10-02 23:45 | US_ITS ---
WS: [id number] ULTRASOUND EARLY TECHNIQUE: Transabdominal sonography of the pelvis was performed. Followed by transvaginal sonography to better evaluate the uterus and ovaries. CLINICAL INFORMATION: pelvic pain LMP: 07/15/2019 Beta hCG: Unknown. COMPARISON: September 24, 2019 FINDINGS: UTERUS AND GESTATIONAL SAC Intrauterine gestations: Intrauterine gestational sac with pole. No cardiac activity visualized. Recommend short interva l follow-up. Estimated gestational age: 7w1d Yolk sac: Present [place] rump length (CRL): 0.4 cm. heart motion: 0 BPM. Subchorionic hemorrhage: None. OVARIES Right ovary: Normal. Left ovary: Normal. FREE FLUID None. 2. Estimated gestational age: 7w1d with estimated delivery May 19, 2020 3. No free fluid in the pelvis. US/US OB <=14 wk fetus w transvag IMPRESSION: 1. Intrauterine gestational sac with tiny pole. No visualized cardiac ac tivity measured in this very early . Recommend short interval follow-u p.
== END 2019-10-02 02:31 | disposition home or self-care (01) ==
PROVIDERS: Emergency Provider Nurse Practitioner Family; PCP Family Medicine
DX: O23.11 Infections of bladder in pregnancy, first trimester (principal); Z3A.08 8 weeks gestation of pregnancy; Z87.891 Personal history of nicotine dependence
CPT/HCPCS: 12345; 36415; 76801; 76817; 80053; 81001; 84702; 84703; 85025; 87210; 99282; 99283

== ENCOUNTER → 2019-10-05 13:12 | Outpatient (BNVA) | payer MEDICAID, SELFPAY | PROVIDERS: Family Provider Family Medicine; PCP Family Medicine; Visit Provider Obstetrics & Gynecology | DX: Z34.81 Encounter for supervision of other normal pregnancy, first trimester (principal) | CPT/HCPCS: 81000 ==

== ENCOUNTER 2019-10-14 21:52 | Emergency (ER) | payer MEDICAID, SELFPAY ==
[2019-10-14 22:17] VITALS: BP 105/66; PULSE 64; RESP 14; TEMP 36.4; O2SAT 99; BMI 20.3
[2019-10-14] MEDS: HYDROcodone-acetaminophen 5-325 mg Tablet 1 TAB PO (23:26)
[2019-10-14 23:29] VITALS: BP 112/78; PULSE 88; RESP 18; O2SAT 99
--- NOTE | 2019-10-15 00:23 | W.ED.PREGNAN ---
HPI - General: Chief complaint: Vaginal Bleeding Stated complaint: vaginal bleeding 7 wks preg Time Seen by Provider: 10/14/19 23:09 History of Present Illness: HPI Narrative: Bleeding started day vaginal patient saw Dr. Anne last week schedule see him this week has ultrasound scheduled tomorrow patient is blood type B+ Complaint: vaginal bleeding Onset (ago): hour(s) Pain Consistency: intermittent Location: pelvis Severity: mild Quality: Cramping Vaginal bleeding: light Date of Last Menstrual Period: 05/16/19 Patient : Yes OB History - Previous Pregnancies: miscarriage care: followed by OB Associated symptoms: Reports no associated symptoms; Deny abdominal pain, headache(s), nausea or vomiting Related Data: : 5 Review of Systems Const: Denies: fever(s), chills or body aches Eyes: Denies: change in vision or blurry vision ENMT: Denies: throat pain or nasal congestion Card: Denies: chest pain or dyspnea on exertion Resp: Denies: dyspnea, productive cough or non-productive cough GI: Denies: abdominal pain, nausea or vomiting : Reports: vaginal bleeding (Resolved now) Musc: Denies: extremity pain Skin/Breast: Denies: rash Neuro: Denies: headache(s) Psych: Denies: anxiety or depression Joshua/Lymph: Denies: easy bruising PFSH ED PFSH: Medical History (Updated 10/14/19 @ 23:19 by ROSARIO Hunt) Depression Surgical History [place] teeth removed wisdom teeth removed in [place], [place] Family History Grandmother Uterine cancer Maternal great grandmother Father Diabetes Other Heart disease Denies family history of Colon cancer Ovarian cancer Hyperlipidemia Breast cancer Family history of thyroid problem Hypertension Stroke Social History (Updated 10/05/19 @ 10:40 by Daly Webber LPN) Smoking and tobacco status: never smoked Quit status (tobacco): has quit using tobacco Former quit date comment: July 2019-- was up to 1/2 ppd Alcohol intake: never Female Reproductive History: Date of last menstrual period: 05/16/19 : 5 Physical Exam Const: COMMON NORMALS: no acute distress, average body habitus and patient oriented x3 HENMT: COMMON NORMALS: normocephalic HEAD & SCALP: normal to inspection and normocephalic FACE & SINUS: normal facial exam Eye: COMMON NORMALS: conjunctivae normal GENERAL EYE: appearance normal, both eyes and all related structures CONJUNCTIVA: Yes conjunctivae normal Neck/C-Spine: COMMON NORMALS: no JVD Chest: COMMONS NORMALS: normal inspection of the chest Cardio: COMMON NORMALS: no JVD GI: COMMON NORMALS: Normal to inspection, nondistended, normoactive bowel sounds present Extremity: COMMON NORMALS: normal to inspection and full ROM Neuro: COMMON NORMALS: patient oriented x3 Course Vital Signs: Vital signs: Vital Signs Temperature 97.5 F L 10/14/19 22:17 Pulse Rate 88 10/14/19 23:29 Respiratory Rate 18 10/14/19 23:29 Blood Pressure 112/78 10/14/19 23:29 Pulse Oximetry 99 10/14/19 23:29 MDM - OB/Uterine Contractions Lab Data: Labs: Lab Results 10/14/19 Range/Units 22:38 Ser , Colleen i-Qnt 21534.00 mIU/mL Discharge Plan Discharge Patient Disposition: Home, Self-Care Clinical Impression: Miscarriage Condition: Stable Prescriptions: New hydrocodone-acetaminophen 5-325 mg tablet 1 tab PO TID PRN (Reason: pain) Qty: 7 RF: 0 No Action Gummies 400 mcg-35 mg- 25 mg-5 mg tablet,chewable 2 tab PO RF: 0 Discharge Orders: Discharge Order (Routine); Ordered 10/14/19 Ordered By: Patrice Jean Referrals: Bigg Dowell Jr, MD [Primary Care Provider] - Discharge Diet: Usual diet Discharge Activity: Increase activity as tolerated Patient Instructions: Threatened Miscarriage (ED) Activity Restrictions/Additional Instructions: Keep ultrasound appointment, call Dr. anne's office in the morning and see what he would like for you to do. Take medication as prescribed Discharge Date/Time: 10/14/19 23:31 Coding Level of Care Code ED Regional Education Manager for Chg Fwd Exam Comprehensive
== END 2019-10-14 23:31 | disposition home or self-care (01) ==
LOC: ER 23:34
PROVIDERS: Emergency Provider Nurse Practitioner Family; PCP Family Medicine
DX: O03.9 Complete or unspecified spontaneous abortion without complication (principal); Z87.891 Personal history of nicotine dependence
CPT/HCPCS: 12345; 36415; 84702; 99281; 99283

== ENCOUNTER 2019-10-15 14:06 | Outpatient (CLI) | payer MEDICAID, SELFPAY ==
--- NOTE | 2019-10-15 14:43 | US_ITS ---
WS: [id number] TRANSABDOMINAL AND TRANSVAGINAL FIRST TRIMESTER ULTRASOUND HISTORY: early : 5 PARA: 2 COMPARISON: None available. FINDINGS: The cervix limits was 3.6 cm appear to be open at the end of the exam was closed initially There appeared to be occurring during the procedure noted at the end of procedure the remini sce of are seen in the cervix and down in the vagina. The ovaries show multiple cystic changes. US/US OB <=14 wk fetus w transvag IMPRESSION: Spontaneous .
== END 2019-10-15 14:07 | disposition home or self-care (01) ==
LOC: RAD 14:08
PROVIDERS: PCP Family Medicine; Visit Provider Pharmacist
DX: O03.9 Complete or unspecified spontaneous abortion without complication (principal)
CPT/HCPCS: 76801; 76817

== ENCOUNTER 2019-10-16 02:32 | Emergency (ER) | payer MEDICAID, SELFPAY ==
[2019-10-16 02:51] VITALS: BP 113/79; PULSE 79; RESP 16; TEMP 36.7; O2SAT 96; BMI 20.3
--- NOTE | 2019-10-16 02:54 | ED_ITS ---
Documented by User: Bianca Xie 10/16/19 05:26 HPI - Abdominal Pain General: Chief Complaint: Vaginal Bleeding Stated Complaint: Abd cramping/bleeding 7wks Time Seen by Provider: 10/16/19 02:42 History of Present Illness: HPI narrative: Tsering is a nice 19-year-old female who comes in the room with a complaint of vaginal bleeding. She states that she is in the midst of a miscarriage. Dr. Kaminski is her primary care physician/OB doctor. She had an ultrasound done yesterday which showed a miscarriage in process. She states that she bled through 3 pads tonight and feels dizzy and lightheaded and that is why she is here. She denies fevers or chills or dysuria. Associated Symptoms: Denies chills, coffee ground emesis, constipation, GI cramping, diarrhea, dysuria, fever(s), heartburn, hematochezia, hematuria, hematemesis, melena, nausea, syncope and vomiting Related Data: Date of Last Menstrual Period: 05/16/19 Review of Systems Const: Denies: fever(s), chills, body aches, fatigue, malaise or diaphoresis Eyes: Denies: change in vision, blurry vision, blind spots or photophobia ENMT: Denies: throat pain, odynophagia, hoarseness, swelling of lips/tongue, ear or mastoid pain, ear discharge, change in hearing or nasal discharge Card: Denies: chest pain, palpitations, irregular heart rhythm, edema, lightheadedness, syncope, pre-syncope, dyspnea on exertion or orthopnea Resp: Denies: dyspnea, productive cough, non-productive cough, wheezing, hemoptysis or chest congestion GI: Denies: nausea, vomiting, hematemesis, coffee ground emesis, heartburn, diarrhea, constipation, GI cramping, hematochezia or melena : Denies: flank pain, dysuria, urinary frequency, urinary urgency or hematuria Musc: Denies: neck pain, back pain, extremity pain, extremity swelling, joint pain, joint swelling, joint redness, joint warmth or joint stiffness Skin/Breast: Denies: rash, pruritus, erythema, skin tenderness or jaundice Neuro: Denies: headache(s), numbness in extremities, weakness in extremities, sensory changes, lack of coordination, difficulty walking, dizziness, vertigo, confusion or Slurred speech present Joshua/Lymph: Denies: easy bruising, easy bleeding, petechiae, purpura or enlarged lymph nodes All/Imm: Denies: urticaria, throat swelling, tongue swelling, facial swelling or acute wheezing PFSH ED PFSH: Medical History Depression Surgical History [place] teeth removed wisdom teeth removed in [place], [place] Family History Grandmother Uterine cancer Maternal great grandmother Father Diabetes Other Heart disease Denies family history of Colon cancer Ovarian cancer Hyperlipidemia Breast cancer Family history of thyroid problem Hypertension Stroke Social History Smoking and tobacco status: never smoked Quit status (tobacco): has quit using tobacco Former quit date comment: July 2019-- was up to 1/2 ppd Alcohol intake: never Female Reproductive History: Date of last menstrual period: 05/16/19 Physical Exam Const: COMMON NORMALS: no acute distress, patient oriented x3, no limitations, healthy appearing and well nourished GENERAL APPEARANCE: cooperative, well kempt and well developed HENMT: COMMON NORMALS: normocephalic, atraumatic, hearing grossly normal bilaterally, external ears normal, EAC's normal, Normal external nose present and moist oral mucous membranes HEAD & SCALP: normocephalic and atraumatic NOSE: Normal external nose present and Normal nares present EXTERNAL EAR: Yes external ears normal EXTERNAL AUDITORY CANAL: EAC's normal MOUTH: Normal oral and palatal mucosa present, lip normal and tongue normal Eye: COMMON NORMALS: Equal, round and reactive pupils present, EOMs intact bilaterally, conjunctivae normal and no scleral icterus GENERAL EYE: appearance normal, both eyes and all related structures ALIGNMENT: Yes alignment normal PERIORBITAL: periorbital findings normal EYELID: eyelids normal CONJUNCTIVA: Yes conjunctivae normal SCLERA: sclerae normal PUPIL: Yes Equal, round and reactive pupils present Neck/C-Spine: COMMON NORMALS: full ROM, no lymphadenopathy, supple, no meningeal signs and no JVD GENERAL: Yes normal visual inspection and Yes trachea midline Chest: COMMONS NORMALS: normal inspection of the chest and normal palpation of entire chest wall Resp: COMMON NORMALS: normal respiratory effort, No retractions, No use of accessory muscles and clear to auscultation bilaterally EFFORT & INSPECTION: Yes able to speak in complete sentences and Yes symmetric chest movement AUSCULTATION: clear to auscultation bilaterally, no crackles, no rales, no rhonchi and no wheezes Cardio: COMMON NORMALS: no JVD, regular rate, regular rhythm, S1 normal heart sound present, S2 normal heart sound present, No gallops present (Cardio), No clicks present (Cardio), No murmurs present (Cardio) and No rub (Cardio) RATE: regular rate RHYTHM: regular rhythm HEART SOUNDS: S1 normal heart sound present and S2 normal heart sound present GI: COMMON NORMALS: Soft to palpation and No hepatosplenomegaly present PALPATION: Yes Soft to palpation, No Tenderness to palpation present (GI), No Guarding due to palpation present (GI), No Rigid due to palpation, Yes No hepatosplenomegaly present, No Hernia present, No Palpable mass present and No Pulsatile mass present : COMMON NORMALS: Yes no CVA tenderness and Yes normal bimanual exam BLADDER/KIDNEY EXAM: Yes no CVA tenderness EXTERNAL FEMALE EXAM: No Hernia present SPECULUM EXAM - VAGINA: No tissue present in vagina and No Vaginal discharge present SPECULUM EXAM - CERVIX: Yes Cervical os open, Yes Tissue present in the cervical os and Yes Cervical bleeding BIMANUAL EXAM - VAGINA & UTERUS: Yes normal bimanual exam, Yes normal palpation, Yes normal palpation and No cervical motion tenderness BIMANUAL EXAM - ADNEXA, OTHER: Yes normal adnexae and Yes mobile OB/EXTERNAL & SPECULUM: Cervical os open; no tissue noted in vagina Back/Pelvis: COMMON NORMALS: no CVA tenderness, thoracic and lumbar spine normal to inspection, no thoracic nor lumbar tenderness and thoraco-lumbar ROM normal Extremity: COMMON NORMALS: normal to inspection, full ROM, capillary refill normal, no joint enlargement, no clubbing, cyanosis or edema and no calf tenderness Neuro: COMMON NORMALS: patient oriented x3, CN's II-XII intact bilaterally, moves all extremities, no focal motor deficits and no sensory deficits noted MENINGEAL SIGNS: Yes no meningeal signs SPEECH: speech normal Psych: COMMON NORMALS: mental status grossly normal, Normal thought process present, cooperative, normal affect, speech normal and activity/motor behavior normal APPEARANCE: Yes well kempt SPEECH: Yes normal speech THOUGHT PROCESS: Normal thought process present Skin: COMMON NORMALS: no rashes or lesions noted, turgor normal, no jaundice, no petechiae and no mottling GENERAL SKIN EXAM: no rashes or lesions noted and turgor normal Course ED course: 0500 -case was reviewed with Dr. Montaño. She states based upon the patient's first and second ultrasounds it sounds as though she has miscarried. Bar's ultrasound is a tech report at this time but we are waiting the official read. She states that likely she is just bleeding and this can be hastened with Cytotec. She recommends IV fluids and a repeat H&H in 2 hours. If the formal ultrasound read is of incomplete miscarriage I will go ahead and give her the Cytotec and proceed with IV fluids and pain control. Vital Signs: Vital signs: Vital Signs Temperature 98.1 F 10/16/19 02:51 Pulse Rate 76 10/16/19 04:40 Respiratory Rate 16 10/16/19 02:51 Blood Pressure 88/44 10/16/19 04:40 Pulse Oximetry 96 10/16/19 02:51 MDM - Abdominal Pain MDM Narrative: Medical decision making narrative: 504 -the case was reviewed with Dr. Montaño, if indeed her ultrasound bar confirms what was seen previously we will place the Cytotec and repeat blood work in 2 hours and hydrate her here and treat her for pain. Case will be turned over to Dr. Horvath at change of shift. Medical Records: Attestation: I reviewed the patient's medical records. Medical records narrative: 10/02/2019 ultrasound reads intrauterine gestation sac with pole. No heart was seen. Estimated gestational age of 7-week and 1 day. 10/15/2019 ultrasound reveals what appeared to be a spontaneous demonstrated during the procedure. The cervix appeared open during the exam but was closed initially. What was believed to be the products of conception were present in the cervix and the vagina at the end of the procedure. Formal impression was spontaneous . Lab Data: Labs: Lab Results 10/16/19 10/16/19 10/16/19 Range/Units 03:03 03:03 03:03 WBC 7.0 (4.0-10.0) 10^3/ uL RBC 4.58 (4.1-5.3) 10^6/u L Hgb 13.7 (11.5-15.3) g/dL Hct 42.2 (37.0-47.0) % MCV 92.1 (81-99) fL MCH 29.9 (28.0-34.0) pg MCHC 32.5 (30.0-36.0) g/dL RDW 13.0 (12.1-15.1) % Plt Count 191 (130-400) 10^3/c mm MPV 11.3 H (7.4-10.4) fL Neut % (Auto) 49.8 % Lymph % (Auto) 42.3 % [place] % (Auto) 5.6 % Eos % (Auto) 1.6 % Baso % (Auto) 0.6 % Neut # (Auto) 3.5 (1.8-7.7) 10^3/u L Lymph # (Auto) 3.0 (0.8-4.8) 10^3/u L [place] # (Auto) 0.4 (0.2-0.9) 10^3/u L Eos # (Auto) 0.1 (0.0-0.8) 10^3/u L Baso # (Auto) 0.0 (0.0-0.1) 10^3/u L Nucleated RBC % (a uto) 0 % Nucleated RBCs # 0.0 /100WBC Sodium 136 (136-145) mmol/L Potassium 3.8 (3.5-5.1) mmol/L Chloride 103 (98-107) mmol/L Carbon Dioxide 23 (22-29) mmol/L Anion Gap 13.8 (5-19) BUN 16 (6-20) mg/dL Creatinine 0.6 (0.5-0.9) mg/dL GFR Calculation 126.2 (90-130) mL/min Glucose 93 (65-115) mg/dL Calculated Osmolal ity 278 L (285-295) mOsm/k g Calcium 8.9 (8.5-10.5) mg/dL Magnesium 2.0 (1.7-2.3) mg/dL Total Bilirubin 0.4 (0.15-1.2) mg/dL AST 11 (0-32) U/L ALT < 5 (0-33) U/L Alkaline Phosphata se 63 (35-105) IU/L Total Protein 6.9 (6.6-8.7) g/dL Albumin 4.5 (3.5-5.2) g/dL Globulin 2.4 (1.3-4.6) g/dL Ser , Colleen i-Qnt mIU/mL Urine Color (Yellow) Urine Appearance (CLEAR) Urine pH (5-7) Ur Specific Gravit y (1.005-1.030) Urine Protein (Negative) Urine Glucose (UA) (Normal) Urine Ketones (Negative) Urine Blood (Negative) Urine Nitrate (Negative) Urine Bilirubin (NEGATIVE) Urine Urobilinogen (Negative) mg/dL Ur Leukocyte Britni ase (Negative) Urine RBC (0-2) /hpf Urine WBC (0-5) /hpf Ur Squamous Epith Cells (0-5) Calcium Oxalate Cr ystal /hpf Urine Bacteria (NONE) Urine Mucus Blood Type B Positive Rho(D) Type Positive 10/16/19 10/16/19 Range/Units 03:03 03:40 WBC (4.0-10.0) 10^3/ uL RBC (4.1-5.3) 10^6/u L Hgb (11.5-15.3) g/dL Hct (37.0-47.0) % MCV (81-99) fL MCH (28.0-34.0) pg MCHC (30.0-36.0) g/dL RDW (12.1-15.1) % Plt Count (130-400) 10^3/c mm MPV (7.4-10.4) fL Neut % (Auto) % Lymph % (Auto) % [place] % (Auto) % Eos % (Auto) % Baso % (Auto) % Neut # (Auto) (1.8-7.7) 10^3/u L Lymph # (Auto) (0.8-4.8) 10^3/u L [place] # (Auto) (0.2-0.9) 10^3/u L Eos # (Auto) (0.0-0.8) 10^3/u L Baso # (Auto) (0.0-0.1) 10^3/u L Nucleated RBC % (a uto) % Nucleated RBCs # /100WBC Sodium (136-145) mmol/L Potassium (3.5-5.1) mmol/L Chloride (98-107) mmol/L Carbon Dioxide (22-29) mmol/L Anion Gap (5-19) BUN (6-20) mg/dL Creatinine (0.5-0.9) mg/dL GFR Calculation (90-130) mL/min Glucose (65-115) mg/dL Calculated Osmolal ity (285-295) mOsm/k g Calcium (8.5-10.5) mg/dL Magnesium (1.7-2.3) mg/dL Total Bilirubin (0.15-1.2) mg/dL AST (0-32) U/L ALT (0-33) U/L Alkaline Phosphata se (35-105) IU/L Total Protein (6.6-8.7) g/dL Albumin (3.5-5.2) g/dL Globulin (1.3-4.6) g/dL Ser , [place] 60832.00 mIU/mL Urine Color Yellow (Yellow) Urine Appearance Sl hazy (CLEAR) Urine pH 5 (5-7) Ur Specific Gravit y 1.030 (1.005-1.030) Urine Protein Neg (Negative) Urine Glucose (UA) Norm (Normal) Urine Ketones Negative (Negative) Urine Blood 3+ H (Negative) Urine Nitrate Negative (Negative) Urine Bilirubin Neg (NEGATIVE) Urine Urobilinogen 1 H (Negative) mg/dL Ur Leukocyte Britni ase Negative (Negative) Urine RBC 0-4 H (0-2) /hpf Urine WBC 0-4 H (0-5) /hpf Ur Squamous Epith Cells 0-4 H (0-5) Calcium Oxalate Cr ystal 0-4 H /hpf Urine Bacteria 1+ H (NONE) Urine Mucus 2+ Blood Type Rho(D) Type Imaging Data ^: US OB: Radiologist's impression: [address] [address] Ultrasound Report Signed Patient: Tsering Vega Unit #: [id number] : 2000 Age/Sex: 19 / F ADM Date: 10/16/19 Loc: ER Room/Bed: Attending Dr: Ordering Provider/Ordering MD: Bianca Xie DO Date of Service: 10/16/19 Procedure(s): US pelvic with transvaginal Accession Number(s): [id number] Report Number: [id number] PROCEDURE INFORMATION: Exam: US Pelvis Complete, Transabdominal Exam date and time: 10/16/2019 4:00 AM Age: 19 years old Clinical indication: Pelvic pain TECHNIQUE: Imaging protocol: Real-time transabdominal pelvic ultrasound with image documentation. Complete exam. COMPARISON: US OB <=14 wk fetus w transvag 10/15/2019 2:58 PM FINDINGS: Uterus/cervix: Uterus measures 9.8 x 6.3 x 5.1 cm. Endometrium measures approximately 1 cm. Cervix appears slightly open with small amount of hyperechoic material probably representing blood products. Right adnexa: Right ovary measures 4.1 x 2 x 1.8 cm. There is blood flow in the right ovary. Left adnexa: Left ovary measures 2.9 x 2.1 x 2.1 cm. There is blood flow in the left ovary. Free fluid: Small amount of free fluid is noted in the right adnexa. Bladder: Normal. US/US pelvic with transvaginal IMPRESSION: No acute findings. Small amount of fluid/suspect blood products noted in the cervix in keeping with recent documented history of spontaneous . Dictated By: Keagan Walsh MD Signed By: Keagan Walsh MD Signed Date/Time: 10/16/19513 DD/ 1 Discharge Plan Discharge Patient Disposition: Home, Self-Care Clinical Impression: Spontaneous Condition: Stable Prescriptions: New Tylenol-Codeine #3 300-30 mg tablet 1 tab PO Q4H PRN (Reason: pain) Qty: 15 RF: 0 No Action Gummies 400 mcg-35 mg- 25 mg-5 mg tablet,chewable 2 tab PO RF: 0 hydrocodone-acetaminophen 5-325 mg tablet 1 tab PO TID PRN (Reason: pain) Qty: 7 RF: 0 Discharge Orders: Discharge Order (Routine); Ordered 10/16/19 Ordered By: Kory Horvath Referrals: Bigg Dowell Jr, MD [Primary Care Provider] - Sign Out Sign Out Data: Patient Sign Out occurred on 10/16/19 at 06:00. Patient's care was discussed, and care was transferred from to Kory Horvath. Coding Level of Care Code ED Mechanical Laboratory Technician for Chg Fwd Exam Comprehensive Documented by User: Kory oHrvath, 10/16/19 07:20 HPI - Abdominal Pain General: Chief Complaint: Vaginal Bleeding Stated Complaint: Abd cramping/bleeding 7wks Time Seen by Provider: 10/16/19 02:42 PFS ED PFSH: Medical History Depression Surgical History [place] teeth removed wisdom teeth removed in [place], [place] Family History Grandmother Uterine cancer Maternal great grandmother Father Diabetes Other Heart disease Denies family history of Colon cancer Ovarian cancer Hyperlipidemia Breast cancer Family history of thyroid problem Hypertension Stroke Social History Smoking and tobacco status: never smoked Quit status (tobacco): has quit using tobacco Former quit date comment: July 2019-- was up to 1/2 ppd Alcohol intake: never Course Vital Signs: Vital signs: Vital Signs Temperature 98.1 F 10/16/19 02:51 Pulse Rate 76 10/16/19 04:40 Respiratory Rate 16 10/16/19 02:51 Blood Pressure 88/44 10/16/19 04:40 Pulse Oximetry 96 10/16/19 02:51 MDM - Abdominal Pain MDM Narrative: Medical decision making narrative: Contacted Dr. Gibbons, the patient's OB. Patient was scheduled to see him in the office today anyway. Patient is instructed to keep that appointment and to return to the emergency room for any problems or concerns. Lab Data: Labs: Lab Results 0610/16/19 10/16/19 Range/Units 03:03 03:03 03:03 WBC 7.0 (4.0-10.0) 10^3/ uL RBC 4.58 (4.1-5.3) 10^6/u L Hgb 13.7 (11.5-15.3) g/dL Hct 42.2 (37.0-47.0) % MCV 92.1 (81-99) fL MCH 29.9 (28.0-34.0) pg MCHC 32.5 (30.0-36.0) g/dL RDW 13.0 (12.1-15.1) % Plt Count 191 (130-400) 10^3/c mm MPV 11.3 H (7.4-10.4) fL Neut % (Auto) 49.8 % Lymph % (Auto) 42.3 % [place] % (Auto) 5.6 % Eos % (Auto) 1.6 % Baso % (Auto) 0.6 % Neut # (Auto) 3.5 (1.8-7.7) 10^3/u L Lymph # (Auto) 3.0 (0.8-4.8) 10^3/u L [place] # (Auto) 0.4 (0.2-0.9) 10^3/u L Eos # (Auto) 0.1 (0.0-0.8) 10^3/u L Baso # (Auto) 0.0 (0.0-0.1) 10^3/u L Nucleated RBC % (a uto) 0 % Nucleated RBCs # 0.0 /100WBC Sodium 136 (136-145) mmol/L Potassium 3.8 (3.5-5.1) mmol/L Chloride 103 (98-107) mmol/L Carbon Dioxide 23 (22-29) mmol/L Anion Gap 13.8 (5-19) BUN 16 (6-20) mg/dL Creatinine 0.6 (0.5-0.9) mg/dL GFR Calculation 126.2 (90-130) mL/min Glucose 93 (65-115) mg/dL Calculated Osmolal ity 278 L (285-295) mOsm/k g Calcium 8.9 (8.5-10.5) mg/dL Magnesium 2.0 (1.7-2.3) mg/dL Total Bilirubin 0.4 (0.15-1.2) mg/dL AST 11 (0-32) U/L ALT < 5 (0-33) U/L Alkaline Phosphata se 63 (35-105) IU/L Total Protein 6.9 (6.6-8.7) g/dL Albumin 4.5 (3.5-5.2) g/dL Globulin 2.4 (1.3-4.6) g/dL Ser , Colleen i-Qnt mIU/mL Urine Color (Yellow) Urine Appearance (CLEAR) Urine pH (5-7) Ur Specific Gravit y (1.005-1.030) Urine Protein (Negative) Urine Glucose (UA) (Normal) Urine Ketones (Negative) Urine Blood (Negative) Urine Nitrate (Negative) Urine Bilirubin (NEGATIVE) Urine Urobilinogen (Negative) mg/dL Ur Leukocyte Britni ase (Negative) Urine RBC (0-2) /hpf Urine WBC (0-5) /hpf Ur Squamous Epith Cells (0-5) Calcium Oxalate Cr ystal /hpf Urine Bacteria (NONE) Urine Mucus Blood Type B Positive Rho(D) Type Positive 10/16/19 10/16/19 Range/Units 03:03 03:40 WBC (4.0-10.0) 10^3/ uL RBC (4.1-5.3) 10^6/u L Hgb (11.5-15.3) g/dL Hct (37.0-47.0) % MCV (81-99) fL MCH (28.0-34.0) pg MCHC (30.0-36.0) g/dL RDW (12.1-15.1) % Plt Count (130-400) 10^3/c mm MPV (7.4-10.4) fL Neut % (Auto) % Lymph % (Auto) % [place] % (Auto) % Eos % (Auto) % Baso % (Auto) % Neut # (Auto) (1.8-7.7) 10^3/u L Lymph # (Auto) (0.8-4.8) 10^3/u L [place] # (Auto) (0.2-0.9) 10^3/u L Eos # (Auto) (0.0-0.8) 10^3/u L Baso # (Auto) (0.0-0.1) 10^3/u L Nucleated RBC % (a uto) % Nucleated RBCs # /100WBC Sodium (136-145) mmol/L Potassium (3.5-5.1) mmol/L Chloride (98-107) mmol/L Carbon Dioxide (22-29) mmol/L Anion Gap (5-19) BUN (6-20) mg/dL Creatinine (0.5-0.9) mg/dL GFR Calculation (90-130) mL/min Glucose (65-115) mg/dL Calculated Osmolal ity (285-295) mOsm/k g Calcium (8.5-10.5) mg/dL Magnesium (1.7-2.3) mg/dL Total Bilirubin (0.15-1.2) mg/dL AST (0-32) U/L ALT (0-33) U/L Alkaline Phosphata se (35-105) IU/L Total Protein (6.6-8.7) g/dL Albumin (3.5-5.2) g/dL Globulin (1.3-4.6) g/dL Ser , [place]Qnt 98726.00 mIU/mL Urine Color Yellow (Yellow) Urine Appearance Sl hazy (CLEAR) Urine pH 5 (5-7) Ur Specific Gravit y 1.030 (1.005-1.030) Urine Protein Neg (Negative) Urine Glucose (UA) Norm (Normal) Urine Ketones Negative (Negative) Urine Blood 3+ H (Negative) Urine Nitrate Negative (Negative) Urine Bilirubin Neg (NEGATIVE) Urine Urobilinogen 1 H (Negative) mg/dL Ur Leukocyte Britni ase Negative (Negative) Urine RBC 0-4 H (0-2) /hpf Urine WBC 0-4 H (0-5) /hpf Ur Squamous Epith Cells 0-4 H (0-5) Calcium Oxalate Cr ystal 0-4 H /hpf Urine Bacteria 1+ H (NONE) Urine Mucus 2+ Blood Type Rho(D) Type Discharge Plan Discharge Patient Disposition: Home, Self-Care Clinical Impression: Spontaneous Condition: Stable Prescriptions: New Tylenol-Codeine #3 300-30 mg tablet 1 tab PO Q4H PRN (Reason: pain) Qty: 15 RF: 0 No Action Gummies 400 mcg-35 mg- 25 mg-5 mg tablet,chewable 2 tab PO RF: 0 hydrocodone-acetaminophen 5-325 mg tablet 1 tab PO TID PRN (Reason: pain) Qty: 7 RF: 0 Discharge Orders: Discharge Order (Routine); Ordered 10/16/19 Ordered By: Kory Horvath Referrals: Bigg Dowell Jr, MD [Primary Care Provider] - Sign Out Sign Out Data: Patient Sign Out occurred on 10/16/19 at 06:00. Patient's care was discussed, and care was transferred from to Kory Horvath. Coding Level of Care Code ED Mechanical Laboratory Technician for Chg Fwd Exam Comprehensive
[2019-10-16 03:12] LABS: Basophils % 0.6 %; Eosinophils # 0.1 10^3/uL (0.0-0.8); Eosinophils % 1.6 %; Hematocrit 42.2 % (37.0-47.0); Hemoglobin 13.7 g/dL (11.5-15.3); Lymphocytes % 42.3 %; Mean Corpuscular HGB Conc 32.5 g/dL (30.0-36.0); Mean Corpuscular Hemoglobin 29.9 pg (28.0-34.0); Mean Corpuscular Volume 92.1 fL (81-99); Mean Platelet Volume 11.3 fL (7.4-10.4); Monocytes # 0.4 10^3/uL (0.2-0.9); Monocytes % 5.6 %; Neutrophils # 3.5 10^3/uL (1.8-7.7); Neutrophils % 49.8 %; Nucleated Red Blood Cells % 0 %; Platelet Count 191 10^3/cmm (130-400); Red Blood Count 4.58 10^6/uL (4.1-5.3)
[2019-10-16 03:30] LABS: Alanine Aminotransferase < 5 U/L (0-33); Albumin Level 4.5 g/dL (3.5-5.2); Alkaline Phosphatase 63 IU/L (35-105); Anion Gap 13.8 (5-19); Aspartate Amino Transferase 11 U/L (0-32); Blood Urea Nitrogen 16 mg/dL (6-20); Calcium 8.9 mg/dL (8.5-10.5); Carbon Dioxide 23 mmol/L (22-29); Chloride 103 mmol/L (98-107); Globulin 2.4 g/dL (1.3-4.6); Glomerular Filtration Rate 126.2 mL/min (90-130); Glucose 93 mg/dL (65-115); Osmolality Calculated 278 mOsm/kg (285-295); Potassium 3.8 mmol/L (3.5-5.1); Sodium 136 mmol/L (136-145); Total Bilirubin 0.4 mg/dL (0.15-1.2); Total Protein 6.9 g/dL (6.6-8.7)
--- NOTE | 2019-10-16 03:34 | USR_ITS ---
PROCEDURE INFORMATION: Exam: US Pelvis Complete, Transabdominal Exam date and time: 10/16/2019 4:00 AM Age: 19 years old Clinical indication: Pelvic pain TECHNIQUE: Imaging protocol: Real-time transabdominal pelvic ultrasound with image documentation. Complete exam. COMPARISON: US OB <=14 wk fetus w transvag 10/15/2019 2:58 PM FINDINGS: Uterus/cervix: Uterus measures 9.8 x 6.3 x 5.1 cm. Endometrium measures approximately 1 cm. Cervix appears slightly open with small amount of hyperechoic material probably representing blood products. Right adnexa: Right ovary measures 4.1 x 2 x 1.8 cm. There is blood flow in the right ovary. Left adnexa: Left ovary measures 2.9 x 2.1 x 2.1 cm. There is blood flow in the left ovary. Free fluid: Small amount of free fluid is noted in the right adnexa. Bladder: Normal. US/US pelvic with transvaginal IMPRESSION: No acute findings. Small amount of fluid/suspect blood products noted in the cervix in keeping with recent documented history of spontaneous .
[2019-10-16 04:38] LABS: Bacteria Urine 1+; Bilirubin Urine Neg (NEGATIVE); Blood Urine 3+ (Negative); Calcium Oxalate Crystals Urine 0-4 /hpf; Glucose Urine UA Norm (Normal); Ketones Urine Negative (Negative); Leukocyte Esterase Urine Negative (Negative); Mucus Urine 2+; Nitrate Urine Negative (Negative); Protein Urine Neg (Negative); RBC Urine 0-4 /hpf (0-2); Squamous Epithelial Cell Urine 0-4 (0-5); Urine Appearance SL Hazy (CLEAR); Urine Color Yellow (Yellow); Urobilinogen Urine 1 mg/dL (Negative); WBC Urine 0-4 /hpf (0-5); pH Urine 5 (5-7)
[2019-10-16 04:40] VITALS: BP 113/68; BP 88/44; BP 95/63; PULSE 76; PULSE 88; PULSE 92
--- NOTE | 2019-10-16 04:45 | PC.NURSE ---
Pt bed linens changed with perineal area cleaned with warm water and soap. Pt reports no new changes at this time
[2019-10-16] MEDS: lactated ringers 1,000 ML 999 ML IV ×2 (04:48→05:56)
[2019-10-16] MEDS: ondansetron 2 mg/ML SDV 2 mL 4 MG IVP (05:52)
[2019-10-16] MEDS: ketorolac 30 mg/mL INJ 10 MG IVP (05:52)
[2019-10-16] MEDS: morphine 4 mg/mL SDV 1 mL IVP (05:53)
[2019-10-16] MEDS: miSOPROStol 200 mcg Tablet 600 MCG PR (06:05)
[2019-10-16 07:29] LABS: Basophils % 0.7 %; Eosinophils # 0.1 10^3/uL (0.0-0.8); Eosinophils % 1.6 %; Hemoglobin 9.5 g/dL (11.5-15.3); Lymphocytes # 2.8 10^3/uL (0.8-4.8); Lymphocytes % 46.3 %; Mean Corpuscular HGB Conc 31.7 g/dL (30.0-36.0); Mean Corpuscular Hemoglobin 30.1 pg (28.0-34.0); Mean Corpuscular Volume 94.9 fL (81-99); Mean Platelet Volume 11.4 fL (7.4-10.4); Monocytes # 0.4 10^3/uL (0.2-0.9); Monocytes % 5.8 %; Neutrophils # 2.8 10^3/uL (1.8-7.7); Neutrophils % 45.4 %; Nucleated Red Blood Cells % 0 %; Platelet Count 154 10^3/cmm (130-400); Red Blood Count 3.16 10^6/uL (4.1-5.3); White Blood Count 6.1 10^3/uL (4.0-10.0)
[2019-10-16 07:58] VITALS: BP 100/62; PULSE 86; RESP 18; O2SAT 98
== END 2019-10-16 08:01 | disposition home or self-care (01) ==
PROVIDERS: Emergency Medicine; Emergency Provider Family Medicine; PCP Family Medicine
DX: O03.9 Complete or unspecified spontaneous abortion without complication (principal); Z87.891 Personal history of nicotine dependence
CPT/HCPCS: 12345; 36415; 76830; 76856; 80053; 81001; 83735; 84702; 85025; 86900; 96360; 96365; 96366; 96375; 99283; 99284; J1885; J2270; J2405

== ENCOUNTER → 2019-11-07 13:20 | Outpatient (BNVA) | payer MEDICAID, SELFPAY | PROVIDERS: PCP Family Medicine; Referring Provider Obstetrics & Gynecology; Visit Provider Obstetrics & Gynecology | DX: O03.9 Complete or unspecified spontaneous abortion without complication (principal) | CPT/HCPCS: 84702; 85025 ==

== ENCOUNTER 2020-05-15 12:15 | Emergency (ER) | payer MEDICAID, SELFPAY ==
[2020-05-15 12:38] VITALS: BP 107/70; PULSE 79; RESP 16; TEMP 36.5; O2SAT 97; BMI 24.7
[2020-05-15 12:42] VITALS: BP 119/62; PULSE 79; RESP 18; O2SAT 98
--- NOTE | 2020-05-15 13:48 | W.ED.PREGNAN ---
HPI - General: Chief complaint: Vaginal Bleeding Stated complaint: CRAMPING/PREG, UNSURE HOW FAR Time Seen by Provider: 05/15/20 13:47 History of Present Illness: HPI Narrative: Patient is a 20-year-old female comes to the ED with vaginal bleeding and cramping. Patient's last menstrual period was March 28, 2020. She took an at-home test yesterday and it was positive. 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 Her last miscarriage was in October. She states the vaginal bleeding and cramping started today. She describes the vaginal bleeding is a brownish, red and black color and it is a minimal amount. She refers to the bleeding more as a spotting. Date of Last Menstrual Period: 03/28/20 Associated symptoms: Deny abdominal pain, dysuria, headache(s), nausea or vomiting Review of Systems Const: Denies: fever(s), chills or fatigue Eyes: Denies: change in vision or eye discomfort ENMT: Denies: throat pain, odynophagia, nasal discharge or nasal congestion Card: Denies: chest pain, palpitations, edema, swelling of feet/ankles, dyspnea on exertion or orthopnea Resp: Denies: dyspnea, productive cough or non-productive cough GI: Denies: abdominal pain, nausea, vomiting, diarrhea, constipation or hematochezia : Reports: vaginal bleeding (light bleeding-brownish red) and pelvic pain (cramping); Denies: flank pain, dysuria or hematuria Musc: Denies: neck pain, back pain or extremity swelling Skin/Breast: Denies: rash or new lesions Neuro: Denies: headache(s), numbness in extremities or weakness in extremities PFSH ED PFSH: Medical History Depression Surgical History [place] teeth removed wisdom teeth removed in [place], [place] Family History Grandmother Uterine cancer Maternal great grandmother Father Diabetes Other Heart disease Denies family history of Colon cancer Ovarian cancer Hyperlipidemia Breast cancer Family history of thyroid problem Hypertension Stroke Social History Smoking and tobacco status: current every day smoker Alcohol intake: never Current gender identity: Female Female Reproductive History: Date of last menstrual period: 03/28/20 Physical Exam Const: COMMON NORMALS: no acute distress, patient oriented x3 and alert GENERAL APPEARANCE: cooperative and comfortable HENMT: COMMON NORMALS: normocephalic HEAD & SCALP: normocephalic MOUTH: Normal oral and palatal mucosa present THROAT: posterior oropharynx normal and uvula midline Eye: COMMON NORMALS: Equal, round and reactive pupils present PUPIL: Yes Equal, round and reactive pupils present Neck/C-Spine: COMMON NORMALS: supple GENERAL: Yes normal visual inspection Resp: COMMON NORMALS: normal respiratory effort, No retractions, No use of accessory muscles and clear to auscultation bilaterally AUSCULTATION: clear to auscultation bilaterally Cardio: COMMON NORMALS: regular rate, regular rhythm, S1 normal heart sound present, S2 normal heart sound present, No gallops present (Cardio), No clicks present (Cardio), No murmurs present (Cardio) and Peripheral pulses 2+ throughout RATE: regular rate RHYTHM: regular rhythm HEART SOUNDS: S1 normal heart sound present and S2 normal heart sound present PERIPHERAL PULSES: Peripheral pulses 2+ throughout GI: COMMON NORMALS: Normal to inspection, nondistended, normoactive bowel sounds present, Soft to palpation, non-tender and no masses PALPATION: Yes Soft to palpation : COMMON NORMALS: Yes no CVA tenderness BLADDER/KIDNEY EXAM: Yes no CVA tenderness Back/Pelvis: COMMON NORMALS: no CVA tenderness Extremity: COMMON NORMALS: normal to inspection Neuro: COMMON NORMALS: patient oriented x3 and moves all extremities SENSORIUM/ORIENTATION: Yes alert Skin: GENERAL SKIN EXAM: dry skin Course Vital Signs: Vital signs: Vital Signs Temperature 98.9 F 05/15/20 15:52 Pulse Rate 70 05/15/20 15:52 Respiratory Rate 16 05/15/20 15:52 Blood Pressure 112/68 05/15/20 15:52 Pulse Oximetry 96 05/15/20 15:52 MDM - OB/Uterine Contractions MDM Narrative: Medical decision making narrative: Patient is a 20-year-old female who comes to the ED with some cramping and vaginal bleeding. Bleeding is very light and described as spotting. Patient is unsure on how far along she has but states that her last menstrual period was on March 28. Patient appears in no acute distress or pain. CBC and CMP were unremarkable. UA showed no signs of UTI. hCG quant was 122.5. OB ultrasound showed no evidence of intrauterine . No evidence of ectopic. No other remarkable findings in the ovaries. With patient's hCG level it is too early for ultrasound to picker box operator on any gestational sac. Patient was discharged and told to follow-up with her healthcare provider in a week to reevaluate. I told her to return to ED if she has any worsening symptoms, fever, chills nausea/vomiting or increased bleeding. Patient understood and agreed with plan. Lab Data: Attestation: I reviewed the patient's lab results. Labs: Lab Results 05/15/20 05/15/20 05/15/20 Range/Units 14:04 14:34 14:34 WBC 4.6 (4.0-10.0) 10^3/ uL RBC 4.78 (4.1-5.3) 10^6/u L Hgb 12.4 (11.5-15.3) g/dL Hct 40.6 (37.0-47.0) % MCV 84.9 (81-99) fL MCH 25.9 L (28.0-34.0) pg MCHC 30.5 (30.0-36.0) g/dL RDW 14.4 (12.1-15.1) % Plt Count 184 (130-400) 10^3/c mm MPV 11.6 H (7.4-10.4) fL Neut % (Auto) 39.7 % Lymph % (Auto) 50.5 % [place] % (Auto) 5.4 % Eos % (Auto) 3.3 % Baso % (Auto) 0.9 % Neut # (Auto) 1.82 (1.8-7.7) 10^3/u L Lymph # (Auto) 2.3 (0.8-4.8) 10^3/u L [place] # (Auto) 0.3 (0.2-0.9) 10^3/u L Eos # (Auto) 0.2 (0.0-0.8) 10^3/u L Baso # (Auto) 0.0 (0.0-0.1) 10^3/u L Nucleated RBC % (a uto) 0 % Nucleated RBCs # 0.0 /100WBC Sodium 136 (136-145) mmol/L Potassium 4.0 (3.5-5.1) mmol/L Chloride 102 (98-107) mmol/L Carbon Dioxide 27 (22-29) mmol/L Anion Gap 11.0 (5-19) BUN 15 (6-20) mg/dL Creatinine 0.6 (0.5-0.9) mg/dL GFR Calculation 125.0 (90-130) mL/min Glucose 88 (65-115) mg/dL Calculated Osmolal ity 282 L (285-295) mOsm/k g Calcium 8.9 (8.5-10.5) mg/dL Total Bilirubin 0.2 (0.15-1.2) mg/dL AST 10 (0-32) U/L ALT < 5 (0-33) U/L Alkaline Phosphata se 74 (35-105) IU/L Total Protein 7.0 (6.6-8.7) g/dL Albumin 4.4 (3.5-5.2) g/dL Globulin 2.6 (1.3-4.6) g/dL Ser , Colleen i-Qnt 122.50 mIU/mL Urine Color Yellow (Yellow) Urine Appearance Clear (CLEAR) Urine pH 6 (5-7) Ur Specific Gravit y 1.020 (1.005-1.030) Urine Protein Neg (Negative) Urine Glucose (UA) Norm (Normal) Urine Ketones Negative (Negative) Urine Blood 3+ H (Negative) Urine Nitrate Negative (Negative) Urine Bilirubin Neg (Negative) Urine Urobilinogen Norm (Negative) mg/dL Ur Leukocyte Britni ase Negative (Negative) Urine RBC 5-10 H (0-2) /hpf Urine WBC None (0-5) /hpf Ur Squamous Epith Cells 0-4 H (0-5) /hpf Amorphous Sediment Not Reportable Urine Bacteria 1+ H (NONE) /hpf Urine Mucus 1+ /hpf Imaging Data^: US OB: Attestation: I personally reviewed and interpreted this imaging study as follows: Radiologist's impression: [facility] [address] [place] [address] Ultrasound Report Signed Patient: Tsering Vega Unit #: [id number] : 2000 Age/Sex: 20 / F ADM Date: 05/15/20 Loc: ER Room/Bed: Attending Dr: Ordering Provider/Ordering MD: Charles Pimentel Date of Service: 05/15/20 Procedure(s): OB transvaginal [id number] Accession Number(s): [id number] Report Number: [id number] WS: [id number] Exam: OB transvaginal [id number] Date/Time of Exam: 05/15/2020 2:35 PM Reason For Exam: -vaginal bleeding and cramping The uterus is unremarkable and measures 7.2 x 3.73 x 4.1 cm. Endometrial thickness is 5.5 mm. Cervical length is 2.83 cm. No intrauterine is noted. Both ovaries contain tiny physiologic follicle cyst. Both ovaries demonstrate normal perfusion when evaluated with color-flow Doppler. The right ovary measures 4.14 x 1.9 x 2.2 cm. The left ovary measures 3.13 x 1.4 x 2.87 cm. No adnexal mass or abnormal free fluid collection. US/ OB transvaginal [id number] IMPRESSION: 1. Unremarkable uterus and ovaries. No intrauterine noted. 2. No adnexal mass or abnormal free pelvic fluid collection. 3. This exam but not totally rule out very early intrauterine or ectopic . Dictated By: John Purcell DO Signed By: John Purcell DO Signed Date/Time: 05/15/20 1519 DD/ 1503 Discharge Plan Discharge Patient Disposition: Home Clinical Impression: Vaginal bleeding before 22 weeks gestation Condition: Stable Prescriptions: No Action Gummies 400 mcg-35 mg- 25 mg-5 mg Tablet,Chewable 2 tab PO DAILY@0900 RF: 0 Discharge Orders: Discharge ED (Routine); Ordered 05/15/20 Ordered By: Charles Pimentel Referrals: Bigg Dowell Jr, MD [Primary Care Provider] - Discharge Diet: Regular Discharge Activity: Resume usual activity Activity Restrictions/Additional Instructions: Follow-up with medical provider as directed. Set up an appointment with OB doctor for reevaluation in approximately a week. At that time you can recheck hCG levels. If you are having any worsening symptoms increased bleeding, pain, nausea/vomiting, fever return to ED for reevaluation. Continue taking vitamins. Return to the ER or your medical provider if condition worsens. Please read and understand discharge instructions. If any questions, please ask. Stand Alone Forms: Work/School Release Coding Level of Care Code ED Coal Hauler for Minda Fwd Exam Comprehensive
--- NOTE | 2020-05-15 13:51 | US_ITS ---
WS: [id number] Exam: US OB transvaginal [id number] Date/Time of Exam: 05/15/2020 2:35 PM Reason For Exam: -vaginal bleeding and cramping The uterus is unremarkable and measures 7.2 x 3.73 x 4.1 cm. Endometrial thickness is 5.5 mm. Cervica l length is 2.83 cm. No intrauterine is noted. Both ovaries contain tiny physiologic follic le cyst. Both ovaries demonstrate normal perfusion when evaluated with color-flow Doppler. The right ovary measures 4.14 x 1.9 x 2.2 cm. The left ovary measures 3.13 x 1.4 x 2.87 cm. No adnexal mass or abnormal free fluid collection. US/US OB transvaginal [id number] IMPRESSION: 1. Unremarkable uterus and ovaries. No intrauterine noted. 2. No adnexal mass or abnormal free pelvic fluid collection. 3. This exam but not totally rule out very early intrauterine or ecto pic .
[2020-05-15 14:30] LABS: Bilirubin Urine Neg (Negative); Blood Urine 3+ (Negative); Glucose Urine UA Norm (Normal); Ketones Urine Negative (Negative); Leukocyte Esterase Urine Negative (Negative); Nitrate Urine Negative (Negative); Protein Urine Neg (Negative); Urine Appearance Clear (CLEAR); Urine Color Yellow (Yellow); Urobilinogen Urine Norm (Negative); pH Urine 6 (5-7)
[2020-05-15 14:43] VITALS: BP 105/76; PULSE 63; RESP 17; O2SAT 96
[2020-05-15 14:47] LABS: Basophils % 0.9 %; Eosinophils # 0.2 10^3/uL (0.0-0.8); Eosinophils % 3.3 %; Hematocrit 40.6 % (37.0-47.0); Hemoglobin 12.4 g/dL (11.5-15.3); Lymphocytes # 2.3 10^3/uL (0.8-4.8); Lymphocytes % 50.5 %; Mean Corpuscular HGB Conc 30.5 g/dL (30.0-36.0); Mean Corpuscular Hemoglobin 25.9 pg (28.0-34.0); Mean Corpuscular Volume 84.9 fL (81-99); Mean Platelet Volume 11.6 fL (7.4-10.4); Monocytes # 0.3 10^3/uL (0.2-0.9); Monocytes % 5.4 %; Neutrophils # 1.82 10^3/uL (1.8-7.7); Neutrophils % 39.7 %; Nucleated Red Blood Cells % 0 %; Platelet Count 184 10^3/cmm (130-400); Red Blood Count 4.78 10^6/uL (4.1-5.3); Red Cell Distribution Width 14.4 % (12.1-15.1); White Blood Count 4.6 10^3/uL (4.0-10.0)
[2020-05-15] MEDS: acetaminophen 500 mg Tablet 1000 MG PO (14:51)
[2020-05-15 15:11] LABS: Add Urine Culture? No; Bacteria Urine 1+ /hpf; Mucus Urine 1+ /hpf; Squamous Epithelial Cell Urine 0-4 /hpf (0-5)
[2020-05-15 15:31] LABS: Alanine Aminotransferase < 5 U/L (0-33); Albumin Level 4.4 g/dL (3.5-5.2); Alkaline Phosphatase 74 IU/L (35-105); Aspartate Amino Transferase 10 U/L (0-32); Blood Urea Nitrogen 15 mg/dL (6-20); Calcium 8.9 mg/dL (8.5-10.5); Carbon Dioxide 27 mmol/L (22-29); Chloride 102 mmol/L (98-107); Globulin 2.6 g/dL (1.3-4.6); Glucose 88 mg/dL (65-115); Osmolality Calculated 282 mOsm/kg (285-295); Sodium 136 mmol/L (136-145); Total Bilirubin 0.2 mg/dL (0.15-1.2)
[2020-05-15 15:52] VITALS: BP 112/68; PULSE 70; RESP 16; TEMP 37.2; O2SAT 96
== END 2020-05-15 15:55 | disposition home or self-care (01) ==
PROVIDERS: Emergency Provider Physician Assistant; PCP Family Medicine
DX: O20.9 Hemorrhage in early pregnancy, unspecified (principal); Z3A.00 Weeks of gestation of pregnancy not specified; O99.330 Smoking (tobacco) complicating pregnancy, unspecified trimester; F17.210 Nicotine dependence, cigarettes, uncomplicated
CPT/HCPCS: 12345; 76817; 80053; 81001; 84702; 85025; 99283

== ENCOUNTER 2020-06-03 21:18 | Emergency (ER) | payer SELFPAY ==
[2020-06-03 21:35] VITALS: BP 104/62; PULSE 87; RESP 18; TEMP 36.4; O2SAT 99; BMI 21.2
--- NOTE | 2020-06-03 21:52 | ED_ITS ---
HPI - Female Genitourinary General: Chief complaint: Vaginal Bleeding Stated complaint: 4wks , heavy vaginal bleeding/cramping Time Seen by Provider: 06/03/20 21:43 Source: patient Mode of arrival: ambulatory Limitations: no limitations History of Present Illness: HPI Narrative: 20-year-old female states she had a positive test 3 weeks ago. Her quantitative that time was 222. She had some bleeding. She never followed up and states she started having bleeding along with lower abdominal cramping today. She is unsure if she is still . States her cramping is a 3 out of 10. Denies passing any blood clots. Denies any worsening improving factors. Denies any vomiting or diarrhea. Associated symptoms: Deny abdominal pain, headache(s) or nausea Date of Last Menstrual Period: 05/06/20 Review of Systems Const: Denies: fever(s), chills, body aches or change in appetite Eyes: Denies: blurry vision or eye discomfort ENMT: Denies: throat pain or dental pain Card: Denies: chest pain Resp: Denies: dyspnea GI: Denies: abdominal pain, nausea, vomiting or diarrhea : Reports: vaginal bleeding Musc: Denies: neck pain or back pain Skin/Breast: Denies: rash Neuro: Denies: headache(s) Psych: Denies: depression Joshua/Lymph: Denies: easy bruising All/Imm: Denies: urticaria PFSH ED PFSH: Medical History (Updated 06/03/20 @ 22:48 by Deacon Causey MD) Depression Surgical History [place] teeth removed wisdom teeth removed in [place], [place] Family History Grandmother Uterine cancer Maternal great grandmother Father Diabetes Other Heart disease Denies family history of Colon cancer Ovarian cancer Hyperlipidemia Breast cancer Family history of thyroid problem Hypertension Stroke Social History Smoking and tobacco status: current every day smoker Alcohol intake: never Current gender identity: Female Female Reproductive History: Date of last menstrual period: 05/06/20 Physical Exam Const: COMMON NORMALS: no acute distress, patient oriented x3 and healthy cisco earing HENMT: COMMON NORMALS: normocephalic and atraumatic HEAD & SCALP: normocephalic and atraumatic Eye: COMMON NORMALS: Equal, round and reactive pupils present and EOMs intact bilaterally PUPIL: Yes Equal, round and reactive pupils present Neck/C-Spine: COMMON NORMALS: full ROM and supple Chest: COMMONS NORMALS: normal inspection of the chest and normal palpation of entire chest wall Resp: COMMON NORMALS: normal respiratory effort, No retractions, No use of accessory muscles and clear to auscultation bilaterally AUSCULTATION: clear to auscultation bilaterally Cardio: COMMON NORMALS: regular rate, regular rhythm and No murmurs present (Cardio) RATE: regular rate RHYTHM: regular rhythm GI: COMMON NORMALS: Normal to inspection, nondistended, normoactive bowel sounds present, Soft to palpation, non-tender and no masses PALPATION: Yes Soft to palpation Extremity: COMMON NORMALS: normal to inspection and full ROM Neuro: COMMON NORMALS: patient oriented x3, moves all extremities and no focal motor deficits Psych: COMMON NORMALS: mental status grossly normal, Normal thought process present and cooperative THOUGHT PROCESS: Normal thought process present Skin: COMMON NORMALS: no rashes or lesions noted and no wounds GENERAL SKIN EXAM: no rashes or lesions noted Course Vital Signs: Vital signs: Vital Signs Temperature 97.6 F 06/03/20 21:35 Pulse Rate 70 06/03/20 22:47 Respiratory Rate 18 06/03/20 21:35 Blood Pressure 113/59 06/03/20 22:47 Pulse Oximetry 98 06/03/20 22:47 MDM - Female [facility] Narrative: Medical decision making narrative: Patient presents here with vaginal bleeding is likely having her menstruation. Patient's blood test here is negative. She likely had a miscarriage 4 weeks ago and is now having a normal menstruation. She is well-appearing here and abdominal exam is benign. She is stable for discharge is to follow-up PCP and return if worsening. Lab Data: Labs: Lab Results 06/03/20 06/03/20 Range/Units 21:56 22:01 Ser , Colleen i-Qnt 0.89 mIU/mL Urine Color Yellow (Yellow) Urine Appearance Clear (CLEAR) Urine pH 5.0 (5-7) Ur Specific Gravit y 1.025 (1.005-1.030) Urine Protein Neg (Negative) Urine Glucose (UA) Norm (Normal) Urine Ketones Negative (Negative) Urine Blood 3+ H (Negative) Urine Nitrate Negative (Negative) Urine Bilirubin Neg (Negative) Urine Urobilinogen Norm (Negative) mg/dL Ur Leukocyte Britni ase Negative (Negative) Urine RBC 5-10 H (0-2) /hpf Urine WBC 0-4 H (0-5) /hpf Ur Squamous Epith Cells 0-4 H (0-5) /hpf Amorphous Sediment Not Reportable Urine Bacteria Trace (NONE) /hpf Urine Mucus 2+ /hpf Discharge Plan Discharge Patient Disposition: Home Clinical Impression: Vaginal bleeding Condition: Stable Prescriptions: No Action Gummies 400 mcg-35 mg- 25 mg-5 mg Tablet,Chewable 2 tab PO DAILY@0900 RF: 0 Discharge Orders: Discharge ED (Routine); Ordered 06/03/20 Ordered By: Deacon Causey Referrals: Bigg Dowell Jr, MD [Primary Care Provider] - 1-3 days Discharge Diet: Advance as tolerated Discharge Activity: Resume usual activity Patient Instructions: Menstruation (ED) Coding Level of Care Code ED Motor Room Controller for Chg Fwd Exam Comprehensive
[2020-06-03 22:01] VITALS: BP 105/73; PULSE 73; O2SAT 98
[2020-06-03 22:20] LABS: Add Urine Microscopic? YES; Bilirubin Urine Neg (Negative); Blood Urine 3+ (Negative); Glucose Urine UA Norm (Normal); Ketones Urine Negative (Negative); Leukocyte Esterase Urine Negative (Negative); Nitrate Urine Negative (Negative); Protein Urine Neg (Negative); Specific Gravity, Urine 1.025 (1.005-1.030); Urine Appearance Clear (CLEAR); Urine Color Yellow (Yellow); Urobilinogen Urine Norm (Negative)
[2020-06-03 22:21] LABS: Add Urine Culture? No; Bacteria Urine TRACE /hpf; Mucus Urine 2+ /hpf; Squamous Epithelial Cell Urine 0-4 /hpf (0-5); WBC Urine 0-4 /hpf (0-5)
[2020-06-03 22:44] LABS: HCG Quantitative 0.89 mIU/mL
[2020-06-03 22:47] VITALS: BP 113/59; PULSE 70; O2SAT 98
[2020-06-03 22:54] VITALS: BP 113/59; PULSE 75; O2SAT 99
== END 2020-06-03 22:55 | disposition home or self-care (01) ==
PROVIDERS: Emergency Provider Emergency Medicine; PCP Family Medicine
DX: N93.9 Abnormal uterine and vaginal bleeding, unspecified (principal); F17.210 Nicotine dependence, cigarettes, uncomplicated
CPT/HCPCS: 12345; 81001; 84702; 99282

== ENCOUNTER 2021-05-05 09:04 | Emergency (ER) | payer MEDICAID, SELFPAY ==
[2021-05-05 09:18] VITALS: BP 115/72; PULSE 78; RESP 16; TEMP 36.7; O2SAT 98; BMI 20.9
--- NOTE | 2021-05-05 09:29 | ED_ITS ---
HPI - Female Genitourinary General: Chief complaint: OB/Uterine Contractions Stated complaint: 9 weeks preg spot bleeding w/ cramping Time Seen by Provider: 05/05/21 09:06 Source: patient Mode of arrival: ambulatory Limitations: no limitations History of Present Illness: HPI Narrative: Patient is a 21-year-old presumed female here stating she is approximately 9 weeks and having some pelvic cramping and vaginal spotting. She states symptoms began yesterday evening. She hasn't really noticed anything more than some spotting when she wipes. No dysuria, frequency, urgency. Denies other vaginal discharge/odor. States she has been monogamous with her current partner for two years and denies concerns for STDs. States current has not been confirmed but that she's had multiple positive home tests. Last LMP was 02/25. Onset (ago): day(s) (yesterday) Quality of pain: cramping Vaginal bleeding: scant Exacerbating factors: none Relieving factors: none Associated symptoms: Reports abdominal pain and nausea; Deny headache(s) or vaginal discharge Treatment prior to arrival: none Sexual activity: Yes Possible : at home test positive Date of Last Menstrual Period: 02/25/21 Review of Systems Const: Denies: fever(s), chills, body aches, fatigue or malaise Card: Denies: chest pain Resp: Denies: dyspnea GI: Reports: abdominal pain and nausea; Denies: vomiting, diarrhea or change in bowel habits : Reports: vaginal bleeding and pelvic pain; Denies: flank pain, difficulty voiding, dysuria, urinary frequency, urinary urgency, urinary hesitancy, hematuria, genital lesions, vaginal odor or vaginal discharge Musc: Denies: neck pain, back pain, extremity pain or joint pain Neuro: Denies: headache(s), numbness in extremities, weakness in extremities or sensory changes PFSH ED PFSH: Medical History (Updated 05/05/21 @ 11:28 by NOE Hyde) Depression Surgical History [place] teeth removed wisdom teeth removed in [place], [place] Family History Grandmother Uterine cancer Maternal great grandmother Father Diabetes Other Heart disease Denies family history of Colon cancer Ovarian cancer Hyperlipidemia Breast cancer Family history of thyroid problem Hypertension Stroke Social History Smoking and tobacco status: current every day smoker Alcohol intake: never Current gender identity: Female Female Reproductive History: Date of last menstrual period: 02/25/21 Physical Exam Const: COMMON NORMALS: no acute distress, average body habitus, patient oriented x3, no limitations, healthy appearing, alert and well nourished GENERAL APPEARANCE: cooperative Resp: COMMON NORMALS: normal respiratory effort and clear to auscultation bilaterally AUSCULTATION: clear to auscultation bilaterally Cardio: COMMON NORMALS: regular rate and regular rhythm RATE: regular rate RHYTHM: regular rhythm GI: COMMON NORMALS: Normal to inspection, nondistended, normoactive bowel sounds present, Soft to palpation, non-tender, No hepatosplenomegaly present and no masses INSPECTION: Yes normal to inspection AUSCULTATION: Yes normoactive bowel sounds PALPATION: Yes Soft to palpation and Yes No hepatosplenomegaly present : COMMON NORMALS: Yes no CVA tenderness BLADDER/KIDNEY EXAM: Yes no CVA tenderness Back/Pelvis: COMMON NORMALS: no CVA tenderness Extremity: COMMON NORMALS: no clubbing, cyanosis or edema, no calf tenderness and no pedal edema Neuro: COMMON NORMALS: patient oriented x3 SENSORIUM/ORIENTATION: Yes alert Course Vital Signs: Vital signs: Vital Signs Temperature 98.1 F 05/05/21 09:18 Pulse Rate 82 05/05/21 11:40 Respiratory Rate 18 05/05/21 11:40 Blood Pressure 109/68 05/05/21 11:40 Pulse Oximetry 96 05/05/21 11:40 MDM - Female MDM Narrative: Medical decision making narrative: hCG today is roughly 6100. Ultrasound shows an estimated gestational age at 5w3d. They did not see a pole at this time. Will write patient an outpatient repeat serum quant in 48 hours. Information placed with case management to get her set up with women's health. Return to ED precautions given. Lab Data: Attestation: I reviewed the patient's lab results. Labs: Lab Results 05/05/21 05/05/21 05/05/21 09:40 09:43 09:43 WBC 4.1 10^3/uL 10^3/ uL (4.0-10.0) RBC 4.64 10^6/uL 10^6 /uL (4.1-5.3) Hgb 13.6 g/dL g/dL (11.5-15.3) Hct 41.3 % % (37.0-47.0) MCV 89.0 fl fl (81-99) MCH 29.3 pg pg (28.0-34.0) MCHC 32.9 g/dL g/dL (30.0-36.0) RDW 12.8 % % (12.1-15.1) Plt Count 191 10^3/cmm 10^3 /cmm (130-400) MPV 11.4 fL H fL (7.4-10.4) Neut % (Auto) 52.8 % % Lymph % (Auto) 40.1 % % [place] % (Auto) 5.4 % % Eos % (Auto) 1.0 % % Baso % (Auto) 0.7 % % Neut # (Auto) 2.14 10^3/uL 10^3 /uL (1.8-7.7) Lymph # (Auto) 1.6 10^3/uL 10^3/ uL (0.8-4.8) [place] # (Auto) 0.2 10^3/uL 10^3/ uL (0.2-0.9) Eos # (Auto) 0.0 10^3/uL 10^3/ uL (0.0-0.8) Baso # (Auto) 0.0 10^3/uL 10^3/ uL (0.0-0.1) Nucleated RBC % (a uto) 0 % % Nucleated RBCs # 0.0 /100WBC /100W BC Sodium Potassium Chloride Carbon Dioxide Anion Gap BUN Creatinine GFR Calculation Glucose Calculated Osmolal ity Calcium Total Bilirubin AST ALT Alkaline Phosphata se Total Protein Albumin Globulin Ser , Colleen i-Qnt Urine Color Yellow (Yellow) Urine Appearance Clear (CLEAR) Urine pH 5 (5-7) Ur Specific Gravit y 1.015 (1.005-1.030) Urine Protein Neg (Negative) Urine Glucose (UA) Norm (Normal) Urine Ketones Negative (Negative) Urine Blood Neg (Negative) Urine Nitrate Negative (Negative) Urine Bilirubin Neg (Negative) Urine Urobilinogen Norm mg/dL mg/dL (Negative) Ur Leukocyte Britni ase Negative (Negative) Blood Type B Positive Rho(D) Type Positive 05/05/21 09:43 WBC RBC Hgb Hct MCV MCH MCHC RDW Plt Count MPV Neut % (Auto) Lymph % (Auto) [place] % (Auto) Eos % (Auto) Baso % (Auto) Neut # (Auto) Lymph # (Auto) [place] # (Auto) Eos # (Auto) Baso # (Auto) Nucleated RBC % (a uto) Nucleated RBCs # Sodium 137 mmol/L mmol/L (136-145) Potassium 4.2 mmol/L mmol/L (3.5-5.1) Chloride 102 mmol/L mmol/L (98-107) Carbon Dioxide 23 mmol/L mmol/L (22-29) Anion Gap 16.2 (5-19) BUN 11 mg/dL mg/dL (6-20) Creatinine 0.6 mg/dL mg/dL (0.5-0.9) GFR Calculation 123.9 mL/min mL/m in (90-130) Glucose 84 mg/dL mg/dL (65-115) Calculated Osmolal ity 283 mOsm/kg L mOs m/kg (285-295) Calcium 8.9 mg/dL mg/dL (8.5-10.5) Total Bilirubin 0.3 mg/dL mg/dL (0.15-1.2) AST 10 U/L U/L (0-32) ALT < 5 U/L U/L (0-33) Alkaline Phosphata se 61 IU/L IU/L (35-105) Total Protein 7.0 g/dL g/dL (6.6-8.7) Albumin 4.4 g/dL g/dL (3.5-5.2) Globulin 2.6 g/dL g/dL (1.3-4.6) Ser , Colleen i-Qnt 6124.00 mIU/mL mI U/mL Urine Color Urine Appearance Urine pH Ur Specific Gravit y Urine Protein Urine Glucose (UA) Urine Ketones Urine Blood Urine Nitrate Urine Bilirubin Urine Urobilinogen Ur Leukocyte Rbitni ase Blood Type Rho(D) Type Imaging Data: US OB: Radiologist's impression: [id number] [address] Ultrasound Report Signed Patient: Tsering Vega Unit #: [id number] : [id number] Age/Sex: 21 / F ADM Date: 05/05/21 Loc: ER Room/Bed: Attending Dr: Ordering Provider/Ordering MD: Kati Guillory Date of Service: 05/05/21 Procedure(s): US OB transvaginal [id number] Accession Number(s): [id number] Report Number: [id number] WS: [id number] ULTRASOUND EARLY TECHNIQUE: Transabdominal sonography of the pelvis was performed. Followed by transvaginal sonography to better evaluate the uterus and ovaries. CLINICAL INFORMATION: 9 wks preg; bleeding/cramping LMP: 02/25/2021 Beta hCG: Unknown. COMPARISON: None. FINDINGS: UTERUS AND GESTATIONAL SAC Intrauterine gestations: Cervix is long and closed. Retroverted uterus. Single intrauterine gestational sac. Estimated gestational age: 5w3d Yolk sac: 0.3 cm. No visualized pole at this time in this very early . Subchorionic hemorrhage: None. OVARIES Right ovary: Right ovarian corpus luteum cyst. Left ovary: Normal. FREE FLUID None. US/US OB transvaginal [id number] IMPRESSION: 1. Intrauterine gestational sac with yolk sac. No pole at this time in this very early . Regard and short interval follow-up. 2. Estimated gestational age; 5w3d 3. Normal adnexa. 4. Right ovarian corpus luteum cyst. Dictated By: Joseph Ye MD Signed By: Joseph Ye MD Signed Date/Time: 05/05/21 1115 DD/ 1109 Discharge Plan Discharge Patient Disposition: Home Clinical Impression: Bleeding in early Condition: Stable Prescriptions: No Action Multivitamins 28 mg iron- 800 mcg Tablet 1 tab PO DAILY RF: 0 Discharge Orders: Discharge ED (Routine); Ordered 05/05/21 Ordered By: Kati Guillory Referrals: Bigg Dowell Jr, MD [Primary Care Provider] - Activity Restrictions/Additional Instructions: As we discussed please follow-up with the women's health clinic. I have placed your information with case management to get you an appointment date and time. You may return to the emergency department for severe vaginal bleeding (soaking more than 1 pad an hour), severe abdominal pain/cramping, or any other concerns you may have. I have also written you an order for an outpatient hCG to be repeated in 2 days. Coding Level of Care Code ED Home Health Outreach Coordinator for Chg Fwd Exam Detailed
[2021-05-05 09:46] VITALS: BP 111/78; PULSE 75; RESP 18; O2SAT 99
[2021-05-05 09:54] LABS: Basophils % 0.7 %; Hematocrit 41.3 % (37.0-47.0); Hemoglobin 13.6 g/dL (11.5-15.3); Lymphocytes # 1.6 10^3/uL (0.8-4.8); Lymphocytes % 40.1 %; Mean Corpuscular HGB Conc 32.9 g/dL (30.0-36.0); Mean Corpuscular Hemoglobin 29.3 pg (28.0-34.0); Mean Platelet Volume 11.4 fL (7.4-10.4); Monocytes # 0.2 10^3/uL (0.2-0.9); Monocytes % 5.4 %; Neutrophils # 2.14 10^3/uL (1.8-7.7); Neutrophils % 52.8 %; Nucleated Red Blood Cells % 0 %; Platelet Count 191 10^3/cmm (130-400); Red Blood Count 4.64 10^6/uL (4.1-5.3); Red Cell Distribution Width 12.8 % (12.1-15.1); White Blood Count 4.1 10^3/uL (4.0-10.0)
[2021-05-05 09:54] LABS: Add Urine Microscopic? NO; Charge for UA Resulting for Rev
[2021-05-05 10:03] LABS: Bilirubin Urine Neg (Negative); Blood Urine Neg (Negative); Glucose Urine UA Norm (Normal); Ketones Urine Negative (Negative); Leukocyte Esterase Urine Negative (Negative); Nitrate Urine Negative (Negative); Protein Urine Neg (Negative); Specific Gravity, Urine 1.015 (1.005-1.030); Urine Appearance Clear (CLEAR); Urine Color Yellow (Yellow); Urobilinogen Urine Norm (Negative); pH Urine 5 (5-7)
--- NOTE | 2021-05-05 10:12 | US_ITS ---
WS: [id number] ULTRASOUND EARLY TECHNIQUE: Transabdominal sonography of the pelvis was performed. Followed by transvaginal sonography to better evaluate the uterus and ovaries. CLINICAL INFORMATION: 9 wks preg; bleeding/cramping LMP: 02/25/2021 Beta hCG: Unknown. COMPARISON: None. FINDINGS: UTERUS AND GESTATIONAL SAC Intrauterine gestations: Cervix is long and closed. Retroverted uterus. Single intrauterine gestational sac. Estimated gestational age: 5w3d Yolk sac: 0.3 cm. No visualized pole at this time in this very early . Subchorionic hemorrhage: None. OVARIES Right ovary: Right ovarian corpus luteum cyst. Left ovary: Normal. FREE FLUID None. US/US OB transvaginal [id number] IMPRESSION: 1. Intrauterine gestational sac with yolk sac. No pole at this time in t his very early . Regard and short interval follow-up. 2. Estimated gestational age; 5w3d 3. Normal adnexa. 4. Right ovarian corpus luteum cyst.
[2021-05-05 10:22] LABS: Alanine Aminotransferase < 5 U/L (0-33); Albumin Level 4.4 g/dL (3.5-5.2); Alkaline Phosphatase 61 IU/L (35-105); Anion Gap 16.2 (5-19); Aspartate Amino Transferase 10 U/L (0-32); Blood Urea Nitrogen 11 mg/dL (6-20); Calcium 8.9 mg/dL (8.5-10.5); Carbon Dioxide 23 mmol/L (22-29); Chloride 102 mmol/L (98-107); Globulin 2.6 g/dL (1.3-4.6); Glomerular Filtration Rate 123.9 mL/min (90-130); Glucose 84 mg/dL (65-115); Osmolality Calculated 283 mOsm/kg (285-295); Potassium 4.2 mmol/L (3.5-5.1); Sodium 137 mmol/L (136-145); Total Bilirubin 0.3 mg/dL (0.15-1.2)
[2021-05-05 10:48] VITALS: BP 109/68; PULSE 76; RESP 17; O2SAT 97
[2021-05-05 11:40] VITALS: BP 109/68; PULSE 82; RESP 18; O2SAT 96
--- NOTE | 2021-05-05 16:08 | PC.SOCIAL ---
Addendum entered by Maribel Hightower RN 05/05/21 16:11: Called patient and verified she was given an outpatient request form for repeat HCG lab and let her know someone from [facility] will be contacting her about appt. Original Note: Referral received by ED provider to follow up with [facility] for early bleeding. Called and spoke with Laureano and provided information. She will review and call patient with appt.
--- NOTE | 2021-05-12 07:55 | DCPLANNER ---
Addendum entered by Jina Medina 06/12/21 15:41: Patient had a follow up appointment scheduled for 05.20.21 with [facility] - patient did attend appointment. Original Note: Patient has a follow up appointment scheduled for Thursday, May 20, 2021 at 11:00 with [facility] at [facility]. Clinic will call patient with appointment information.
== END 2021-05-05 11:44 | disposition home or self-care (01) ==
PROVIDERS: Emergency Provider Physician Assistant; PCP Family Medicine
DX: O20.8 Other hemorrhage in early pregnancy (principal); Z3A.01 Less than 8 weeks gestation of pregnancy; F17.210 Nicotine dependence, cigarettes, uncomplicated
CPT/HCPCS: 76817; 80053; 81003; 84702; 85025; 86900; 99283

== ENCOUNTER 2021-05-07 17:23 | Outpatient (CLI) | payer MEDICAID, SELFPAY | END 2021-05-07 17:24 | disposition home or self-care (01) | PROVIDERS: PCP Family Medicine; Visit Provider Physician Assistant | DX: O20.0 Threatened abortion (principal) | CPT/HCPCS: 84702 ==

== ENCOUNTER → 2021-06-25 12:06 | Outpatient (BNVA) | payer MEDICAID, SELFPAY | PROVIDERS: Visit Provider Obstetrics & Gynecology | DX: O09.71 Supervision of high risk pregnancy due to social problems, first trimester (principal); O09.70 Supervision of high risk pregnancy due to social problems, unspecified trimester | CPT/HCPCS: 80307; 84315; 85027; 86592; 86762; 86803; 86850; 87077; 87086; 87184; 87340; 87491; 87591; 87806; 88175 ==

== ENCOUNTER 2021-07-29 23:08 | Emergency (ER) | payer MEDICAID, SELFPAY ==
[2021-07-29 23:26] VITALS: BP 130/70; PULSE 93; RESP 16; TEMP 36.8; O2SAT 99; BMI 21.6
--- NOTE | 2021-07-29 23:37 | ED_ITS ---
HPI - Female Genitourinary General: Chief complaint: Urogenital-Female Stated complaint: Burning when She Pees\ 17 weeks Preg Time Seen by Provider: 07/29/21 23:37 History of Present Illness: Ms. Vega is a 21-year-old lady -0-3-2 with LMP 03/28/2021 who presents emergency department due to abdominal cramping and dysuria. She reports symptoms first noticed this morning and prior to that she was feeling well. She has had intermittent mild to moderate abdominal cramping that is not specifically exacerbated by any activity. She notes burning with urination. She does have some vaginal discharge however reports that this is baseline. She denies signs of systemic illness. She does have mild burning sensation down the right inner thigh. No other specific changes in health, exacerbating, or alleviating factors identified. Pertinent past history: other Onset (ago): hour(s) Severity: moderate Quality of pain: cramping and burning Vaginal discharge: other (normal for patient) Urinary symptoms: Dysuria Date of Last Menstrual Period: 02/25/21 Review of Systems General: Reports: 10 or more systems reviewed and unremarkable except in HPI and below PFSH ED 2 PFSH: Medical History Depression She was previously treated with medication but cannot remember what. She denies any current issues as of 05/20/21 No pertinent past medical history neghx: htn,dm,thyroid,dvt/pe PCP: [facility] Surgical History [place] teeth removed wisdom teeth removed in [place], [place] Family History Grandmother Uterine cancer Maternal great grandmother--- dx age unknown Father Diabetes Denies family history of Colon cancer Ovarian cancer Heart disease Hyperlipidemia Breast cancer Family history of thyroid problem Hypertension Stroke Female Reproductive History: Date of last menstrual period: 02/25/21 Physical Exam Const: COMMON NORMALS: alert GENERAL APPEARANCE: cooperative and well developed HENMT: COMMON NORMALS: normocephalic and atraumatic HEAD & SCALP: normocephalic and atraumatic Eye: COMMON NORMALS: conjunctivae normal CONJUNCTIVA: Yes conjunctivae normal SCLERA: sclerae normal Neck/C-Spine: COMMON NORMALS: supple GENERAL: Yes trachea midline Resp: COMMON NORMALS: normal respiratory effort EFFORT & INSPECTION: Yes able to speak in complete sentences Cardio: COMMON NORMALS: regular rate and regular rhythm RATE: regular rate RHYTHM: regular rhythm GI: COMMON NORMALS: Soft to palpation PALPATION: Yes Soft to palpation, Yes Tenderness to palpation present (GI) (mild), No Guarding due to palpation present (GI) and No Rigid due to palpation PERCUSSION: normal to percussion : OTHER: Pelvic exam performed with director talent management present. External genitalia without acute abnormality, no lesions or injury. Speculum exam with normal vagina and closed cervical os. There is white discharge which appears greater than physiologic. Extremity: GENERAL: Yes normal exam except as noted and No edema Neuro: COMMON NORMALS: moves all extremities SENSORIUM/ORIENTATION: Yes alert and No Orientation impaired Psych: COMMON NORMALS: mental status grossly normal and Normal thought process present THOUGHT PROCESS: Normal thought process present Course ED course: - Patient was seen and evaluated by me at bedside - Patient placed on cardiac monitors, IV access obtained - Initial evaluation notable for exam as above - Labs and xrays personally interpreted by me - IV fluids given - Labs notable for normal urinalysis at which point additional laboratory studi es felt to be warranted. No leukocytosis, hemoglobin not requiring intervention. Mild dehydration noted on metabolic panel. Wet prep positive for yeast. - Imaging notable for single viable intrauterine gestation without acute abnormality identified. There was significant delay in [facility] read of ultrasound and therefore patient had been discharged, after discussion, prior to results of read however no abnormality identified that would require patient to return to the emergency room or emergently. - Upon serial reexamination after treatment the patient was similar - Based on patient history, evaluation, and testing as interpreted the most likely cause of the patient's condition is abdominal pain in , possibly related to yeast infection which will be treated. - The results of ED evaluation were discussed with the patient including prescriptions and/or symptomatic cares (if applicable) including appropriate and responsible use, followup plan, and return precautions. The patient verbalized understanding and felt safe for discharge. - Patient discharged in satisfactory condition. Note: Click bubbles or prepopulated yaers in note writing are used for assistance with data collection and billing and are inherently more limited than narrative and other text portions of this note. Please use narrative for additional clinical history and defer to narrative/free test for any case of contradictory information. If information appears in only free text or click bubble it should be considered present or absent as reported. Please contact note marine underwriter for clarifications of clinical information or contradictory information. MDM is a brief summary, contradictory or erroneous seeming information should be clarified and full note should be reviewed. Vital Signs: Vital signs: Vital Signs Temperature 98.2 F 07/29/21 23:26 Pulse Rate 93 07/29/21 23:26 Respiratory Rate 16 07/29/21 23:26 Blood Pressure 130/70 07/29/21 23:26 Pulse Oximetry 99 07/29/21 23:26 MDM - Female Medical Decision Making 21-year-old lady currently approximately 17 weeks presenting with abdominal cramping and dysuria. No evidence of urinary tract infection. Wet prep positive for yeast. Will be treated and patient is satisfactory for outpatient management. Medical Records I reviewed the patient's medical records. Lab Data I reviewed the patient's lab results. : 07/30/21 02:31 07/30/21 02:31 Radiology Impressions Obstetrics Ultrasound 07/30/21 01:10 IMPRESSION: Single viable intrauterine gestation in transverse presentation with estimated gestational age of 17 weeks 5 days. Laboratory Results WBC 6.1 10^3/uL (4.0-10.0) 07/30/21 02:31 RBC 3.60 10^6/uL (4.1-5.3) L 07/30/21 02:31 Hgb 11.1 g/dL (11.5-15.3) L 07/30/21 02:31 Hct 33.2 % (37.0-47.0) L 07/30/21 02:31 MCV 92.2 fl (81-99) 07/30/21 02:31 MCH 30.8 pg (28.0-34.0) 07/30/21 02:31 MCHC 33.4 g/dL (30.0-36.0) 07/30/21 02:31 RDW 13.5 % (12.1-15.1) 07/30/21 02:31 Plt Count 162 10^3/cmm (130-400) 07/30/21 02:31 MPV 11.1 fL (7.4-10.4) H 07/30/21 02:31 Neut % (Auto) 53.5 % 07/30/21 02:31 Lymph % (Auto) 37.0 % 07/30/21 02:31 [place] % (Auto) 7.0 % 07/30/21 02:31 Eos % (Auto) 1.8 % 07/30/21 02:31 Baso % (Auto) 0.5 % 07/30/21 02:31 Neut # (Auto) 3.27 10^3/uL (1.8-7.7) 07/30/21 02:31 Lymph # (Auto) 2.3 10^3/uL (0.8-4.8) 07/30/21 02:31 [place] # (Auto) 0.4 10^3/uL (0.2-0.9) 07/30/21 02:31 Eos # (Auto) 0.1 10^3/uL (0.0-0.8) 07/30/21 02:31 Baso # (Auto) 0.0 10^3/uL (0.0-0.1) 07/30/21 02:31 Nucleated RBC % (auto) 0 % 07/30/21 02:31 Nucleated RBCs # 0.0 /100WBC 07/30/21 02:31 Sodium 136 mmol/L (136-145) 07/30/21 02:31 Potassium 3.7 mmol/L (3.5-5.1) 07/30/21 02:31 Chloride 105 mmol/L (98-107) 07/30/21 02:31 Carbon Dioxide 21 mmol/L (22-29) L 07/30/21 02:31 Anion Gap 13.7 (5-19) 07/30/21 02:31 BUN 10 mg/dL (6-20) 07/30/21 02:31 Creatinine 0.4 mg/dL (0.5-0.9) L 07/30/21 02:31 GFR Calculation 197.8 mL/min (90-130) H 07/30/21 02:31 Glucose 94 mg/dL (65-115) 07/30/21 02:31 Calculated Osmolality 281 mOsm/kg (285-295) L 07/30/21 02:31 Calcium 8.0 mg/dL (8.5-10.5) L 07/30/21 02:31 Total Bilirubin 0.2 mg/dL (0.15-1.2) 07/30/21 02:31 AST 10 U/L (0-32) 07/30/21 02:31 ALT < 5 U/L (0-33) 07/30/21 02:31 Alkaline Phosphatase 46 IU/L (35-105) 07/30/21 02:31 Total Protein 5.4 g/dL (6.6-8.7) L 07/30/21 02:31 Albumin 3.5 g/dL (3.5-5.2) 07/30/21 02:31 Globulin 1.9 g/dL (1.3-4.6) 07/30/21 02:31 Lipase 37 U/L (13-60) 07/30/21 02:31 Urine Color Yellow (Yellow) 07/29/21 23:52 Urine Appearance Hazy (CLEAR) A 07/29/21 23:52 Urine pH 8 (5-7) H 07/29/21 23:52 Ur Specific [place] 1.025 (1.005-1.030) 07/29/21 23:52 Urine Protein Neg (Negative) 07/29/21 23:52 Urine Glucose (UA) Norm (Normal) 07/29/21 23:52 Urine Ketones Negative (Negative) 07/29/21 23:52 Urine Blood Neg (Negative) 07/29/21 23:52 Urine Nitrate Negative (Negative) 07/29/21 23:52 Urine Bilirubin Neg (Negative) 07/29/21 23:52 Prot Sulfosalicylic Acd Negative (Negative) 07/29/21 23:52 Urine Urobilinogen 4 mg/dL (Negative) H 07/29/21 23:52 Ur Leukocyte Esterase Negative (Negative) 07/29/21 23:52 Urine RBC 0-4 /hpf (0-2) H 07/29/21 23:52 Urine WBC 0-4 /hpf (0-5) H 07/29/21 23:52 Ur Squamous Epith Cells 10-15 /hpf (0-5) H 07/29/21 23:52 Amorphous Sediment 3+ /hpf 07/29/21 23:52 Urine Bacteria 2+ /hpf (NONE) H 07/29/21 23:52 Discharge Plan Discharge Patient Disposition: Home Clinical Impression: Abdominal cramping affecting , Vaginal yeast infection Condition: Stable Prescriptions: New Diflucan 150 mg tablet 150 mg PO DAILY Qty: 1 0RF Rx Instructions: administer on day 1 of therapy No Action Multivitamins 28 mg iron- 800 mcg Tablet 1 tab PO DAILY 0RF Discharge Orders: Discharge ED (Routine); Ordered 07/30/21 Ordered By: Mic Coburn Discharge Diet: Usual diet Discharge Activity: Resume usual activity Patient Instructions: Yeast Infection (ED), Abdominal Pain in (ED) Activity Restrictions/Additional Instructions: Thank you for visiting the emergency department. You were seen and evaluated for abdominal cramping in . You were found to have yeast infection. You will be given a prescription for one-time dose of medication. Please follow-up with your primary care provider and nutritional yeast supervisor. Please return to the emergency department for worsening symptoms, vaginal bleeding, or anything else that you are concerned about and feel needs emergency department evaluation. Coding Level of Care Code ED Veterinary Virus Serum Inspector for Minda Ibrahim
[2021-07-30 00:18] LABS: Bilirubin Urine Neg (Negative); Blood Urine Neg (Negative); Glucose Urine UA Norm (Normal); Ketones Urine Negative (Negative); Leukocyte Esterase Urine Negative (Negative); Nitrate Urine Negative (Negative); Protein Urine Neg (Negative); Specific Gravity, Urine 1.025 (1.005-1.030); Sulfosalicylic Acid Urine Negative (Negative); Urine Color Yellow (Yellow); Urobilinogen Urine 4 mg/dL (Negative); pH Urine 8 (5-7)
[2021-07-30 00:21] LABS: Add Urine Microscopic? YES; Urine Appearance Hazy (CLEAR)
[2021-07-30 00:27] LABS: Add Urine Culture? No; Amorphous Sediment Urine 3+ /hpf; Bacteria Urine 2+ /hpf; RBC Urine 0-4 /hpf (0-2); WBC Urine 0-4 /hpf (0-5)
[2021-07-30] MEDS: sodium chloride 0.9% 1,000 ML 999 ML IV (00:55)
--- NOTE | 2021-07-30 01:10 | USR_ITS ---
PROCEDURE INFORMATION: Exam: US , Limited Exam date and time: 07/30/2021 1:10 AM Age: 21 years old Clinical indication: complicated by abdominal or pelvic pain; Generalized abdominal pain; Second trimester (14 weeks 0 days to 27 weeks 6 days); Gestational age or lmp: 02/25/2021; ; Additional info: Cramping, scant bleeding TECHNIQUE: Imaging protocol: Real-time ultrasound of the maternal uterus with image documentation. Exam focused on the clinical indication. COMPARISON: US OB transvaginal [facility] 05/25/2021 1:59 PM FINDINGS: Gestation: Single viable intrauterine gestation. heart rate: The heart rate is 150 beats per minute. Placenta: The placenta is located anteriorly. Amniotic fluid index: The amniotic fluid volume is appropriate, with an DEREK of 10.2 cm. BIOMETRY: Gestational age (AUA): The estimated gestational age is 17 weeks 5 days. Biparietal diameter (BPD): Not measured. Head circumference: Head circumference measures 14.49 cm, corresponding to a gestational age of 17 weeks 5 days. Abdominal circumference (AC): Not measured. Femur length (FL): Femur length measures 2.53 cm, corresponding to a gestational age of 17 weeks 5 days. MATERNAL: Cervix: The cervix measures approximately 4.9 cm in length. US/US OB >=14 wk fetus w transvag IMPRESSION: Single viable intrauterine gestation in transverse presentation with estimated gestational age of 17 weeks 5 days.
[2021-07-30 02:34] LABS: Basophils % 0.5 %; Eosinophils # 0.1 10^3/uL (0.0-0.8); Eosinophils % 1.8 %; Hematocrit 33.2 % (37.0-47.0); Hemoglobin 11.1 g/dL (11.5-15.3); Lymphocytes # 2.3 10^3/uL (0.8-4.8); Mean Corpuscular HGB Conc 33.4 g/dL (30.0-36.0); Mean Corpuscular Hemoglobin 30.8 pg (28.0-34.0); Mean Corpuscular Volume 92.2 fl (81-99); Mean Platelet Volume 11.1 fL (7.4-10.4); Monocytes # 0.4 10^3/uL (0.2-0.9); Neutrophils # 3.27 10^3/uL (1.8-7.7); Neutrophils % 53.5 %; Nucleated Red Blood Cells % 0 %; Platelet Count 162 10^3/cmm (130-400); Red Cell Distribution Width 13.5 % (12.1-15.1); White Blood Count 6.1 10^3/uL (4.0-10.0)
[2021-07-30 03:01] LABS: Alanine Aminotransferase < 5 U/L (0-33); Albumin Level 3.5 g/dL (3.5-5.2); Alkaline Phosphatase 46 IU/L (35-105); Anion Gap 13.7 (5-19); Aspartate Amino Transferase 10 U/L (0-32); Blood Urea Nitrogen 10 mg/dL (6-20); Carbon Dioxide 21 mmol/L (22-29); Chloride 105 mmol/L (98-107); Globulin 1.9 g/dL (1.3-4.6); Glomerular Filtration Rate 197.8 mL/min (90-130); Glucose 94 mg/dL (65-115); Lipase 37 U/L (13-60); Osmolality Calculated 281 mOsm/kg (285-295); Potassium 3.7 mmol/L (3.5-5.1); Sodium 136 mmol/L (136-145); Total Bilirubin 0.2 mg/dL (0.15-1.2); Total Protein 5.4 g/dL (6.6-8.7)
== END 2021-07-30 04:03 | disposition home or self-care (01) ==
PROVIDERS: Emergency Provider Emergency Medicine
DX: O26.892 Other specified pregnancy related conditions, second trimester (principal); O98.812 Other maternal infectious and parasitic diseases complicating pregnancy, second trimester; B37.3 Candidiasis of vulva and vagina; R10.9 Unspecified abdominal pain; Z3A.17 17 weeks gestation of pregnancy
CPT/HCPCS: 76805; 76817; 80053; 81001; 83690; 85025; 87210; 96360; 99283; J7030

== ENCOUNTER → 2021-08-17 11:03 | Outpatient (BNVA) | payer MEDICAID, SELFPAY | PROVIDERS: Visit Provider Obstetrics & Gynecology | DX: Z34.82 Encounter for supervision of other normal pregnancy, second trimester (principal); Z3A.20 20 weeks gestation of pregnancy | CPT/HCPCS: 76805 ==

== ENCOUNTER → 2021-09-15 08:48 | Outpatient (BNVA) | payer MEDICAID, SELFPAY | PROVIDERS: Visit Provider Obstetrics & Gynecology | DX: O09.71 Supervision of high risk pregnancy due to social problems, first trimester (principal); Z3A.00 Weeks of gestation of pregnancy not specified | CPT/HCPCS: 81000; 82950 ==

== ENCOUNTER 2021-09-22 14:40 | Outpatient (CLI) | payer MEDICAID, SELFPAY ==
[2021-09-22] VITALS (13 sets, daily range): BP systolic 103–126; BP diastolic 55–66; PULSE 77–106; RESP 18; BMI 22.1
[2021-09-22] MEDS: dextrose 5%-lactated ringers 1,000 ML 999 ML IV ×2 (15:51→17:00)
== END 2021-09-22 18:10 | disposition home or self-care (01) ==
LOC: OPOB 14:49 → OBGYN 14:51
PROVIDERS: Visit Provider Obstetrics & Gynecology
DX: O26.899 Other specified pregnancy related conditions, unspecified trimester (principal); Z3A.00 Weeks of gestation of pregnancy not specified; R10.9 Unspecified abdominal pain
CPT/HCPCS: 99211

== ENCOUNTER 2021-10-06 14:35 | Outpatient (CLI) | payer MEDICAID, SELFPAY ==
[2021-10-06] VITALS (11 sets, daily range): BP systolic 93–111; BP diastolic 52–71; PULSE 76–96; RESP 16
[2021-10-06] MEDS: acetaminophen 325 mg Tablet 650 MG PO (15:45)
[2021-10-06] MEDS: famotidine 20 mg Tablet PO (15:45)
[2021-10-06 15:50] LABS: Basophils % 0.3 %; Eosinophils # 0.1 10^3/uL (0.0-0.8); Eosinophils % 1.1 %; Hematocrit 32.4 % (37.0-47.0); Hemoglobin 10.7 g/dL (11.5-15.3); Lymphocytes # 1.4 10^3/uL (0.8-4.8); Lymphocytes % 19.2 %; Mean Corpuscular Hemoglobin 29.8 pg (28.0-34.0); Mean Corpuscular Volume 90.3 fl (81-99); Mean Platelet Volume 10.9 fL (7.4-10.4); Monocytes # 0.7 10^3/uL (0.2-0.9); Monocytes % 9.3 %; Neutrophils # 4.92 10^3/uL (1.8-7.7); Neutrophils % 69.5 %; Nucleated Red Blood Cells % 0 %; Platelet Count 203 10^3/cmm (130-400); Red Blood Count 3.59 10^6/uL (4.1-5.3); Red Cell Distribution Width 12.8 % (12.1-15.1); White Blood Count 7.1 10^3/uL (4.0-10.0)
[2021-10-06 16:24] LABS: Alanine Aminotransferase 7 U/L (0-33); Albumin Level 3.5 g/dL (3.5-5.2); Alkaline Phosphatase 80 IU/L (35-105); Anion Gap 14.2 (5-19); Aspartate Amino Transferase 10 U/L (0-32); Blood Urea Nitrogen 7 mg/dL (6-20); Calcium 8.3 mg/dL (8.5-10.5); Carbon Dioxide 23 mmol/L (22-29); Chloride 102 mmol/L (98-107); Globulin 2.9 g/dL (1.3-4.6); Glomerular Filtration Rate 275.7 mL/min (90-130); Glucose 79 mg/dL (65-115); Osmolality Calculated 277 mOsm/kg (285-295); Potassium 4.2 mmol/L (3.5-5.1); Sodium 135 mmol/L (136-145); Total Bilirubin 0.3 mg/dL (0.15-1.2); Total Protein 6.4 g/dL (6.6-8.7); Uric Acid 2.5 mg/dL (2.4-5.7)
[2021-10-06 16:28] LABS: Amphetamines Screen Urine Negative (Negative); Barbiturates Screen Urine Negative (Negative); Benzodiazepines Screen Urine Negative (Negative); Cocaine Screen Urine Negative (Negative); Opiate Screen Urine Negative (Negative); PCP Screen Urine Negative (Negative); THC Screen Urine Negative (Negative)
[2021-10-06 16:42] LABS: Add Urine Culture? No; Bilirubin Urine Neg (Negative); Blood Urine 2+ (Negative); Glucose Urine UA Norm (Normal); Ketones Urine Negative (Negative); Leukocyte Esterase Urine Negative (Negative); Nitrate Urine Negative (Negative); Protein Urine Neg (Negative); RBC Urine 0-4 /hpf (0-2); Specific Gravity, Urine 1.005 (1.005-1.030); Squamous Epithelial Cell Urine 0-4 /hpf (0-5); Urine Appearance Clear (CLEAR); Urine Color Straw (Yellow); Urobilinogen Urine Norm (Negative); WBC Urine 0-4 /hpf (0-5); pH Urine 7 (5-7)
[2021-10-06 17:25] LABS: UPRO/UCREAT Ratio 0.14 mg/mg CR; Urine Creatinine 36 mg/dL (28-217); Urine Protein Random 5 mg/dL
== END 2021-10-06 17:45 | disposition home or self-care (01) ==
LOC: OPOB 14:42 → OBGYN 14:52
PROVIDERS: Visit Provider Obstetrics & Gynecology
DX: O26.899 Other specified pregnancy related conditions, unspecified trimester (principal); Z3A.00 Weeks of gestation of pregnancy not specified; R51.9 Headache, unspecified; R10.9 Unspecified abdominal pain; H53.8 Other visual disturbances
CPT/HCPCS: 36415; 80053; 80306; 81001; 82570; 84156; 84550; 85025; 99211

== ENCOUNTER 2021-10-08 22:20 | Outpatient (CLI) | payer MEDICAID, SELFPAY ==
[2021-10-08] VITALS (21 sets, daily range): BP systolic 103–114; BP diastolic 69–73; PULSE 88–146; RESP 15; O2SAT 89–100; BMI 23.3
--- NOTE | 2021-10-08 22:39 | PC.NURSE ---
this nurse spoke with pt and asked if she was having lower back pain and assess for CVA tenderness which was negative. Pt states her back is uncomfortable to touch but not excruitating. Pt states the stomach pains started yesterday. She stated she was a patient here Tuesday or Tuesday with stomach pains and they gave her some kind of medicine that helped and sent her home. She stated she tried Tums and Tylenol but it has not helped and she has had a headache all day as well.
[2021-10-08] MEDS: acetaminophen 500 mg Tablet 1000 MG PO (22:58)
[2021-10-08 23:21] LABS: Bilirubin Urine Neg (Negative); Blood Urine 2+ (Negative); Glucose Urine UA Norm (Normal); Ketones Urine Negative (Negative); Leukocyte Esterase Urine Negative (Negative); Nitrate Urine Negative (Negative); Protein Urine Neg (Negative); Specific Gravity, Urine 1.015 (1.005-1.030); Urine Appearance Clear (CLEAR); Urine Color Yellow (Yellow); Urobilinogen Urine Norm (Negative); pH Urine 5 (5-7)
[2021-10-08 23:22] LABS: Add Urine Culture? No; Bacteria Urine TRACE /hpf; Mucus Urine 1+ /hpf; WBC Urine 0-4 /hpf (0-5)
[2021-10-09 00:03] VITALS: PULSE 92; O2SAT 100
[2021-10-09 00:14] VITALS: BP 107/61; PULSE 86
[2021-10-09 00:26] VITALS: BP 103/60; PULSE 82
[2021-10-09 00:41] VITALS: BP 104/67; PULSE 90
== END 2021-10-09 01:00 | disposition home or self-care (01) ==
LOC: OPOB 22:21 → OBGYN 22:22
PROVIDERS: Visit Provider Obstetrics & Gynecology
DX: O26.899 Other specified pregnancy related conditions, unspecified trimester (principal); Z3A.00 Weeks of gestation of pregnancy not specified; M54.50 Low back pain, unspecified
CPT/HCPCS: 81001; 99211

== ENCOUNTER → 2021-10-13 11:12 | Outpatient (BNVA) | payer MEDICAID, SELFPAY | PROVIDERS: Visit Provider Obstetrics & Gynecology | DX: O09.70 Supervision of high risk pregnancy due to social problems, unspecified trimester (principal) | CPT/HCPCS: 84315; 85027 ==

== ENCOUNTER 2021-11-10 16:30 | Outpatient (CLI) | payer MEDICAID, SELFPAY ==
[2021-11-10] VITALS (28 sets, daily range): BP systolic 106–118; BP diastolic 69–83; PULSE 102–140; RESP 16; O2SAT 96–98; BMI 22.3
[2021-11-10 17:16] LABS: Add Urine Microscopic? NO; Charge for UA Resulting for Rev
[2021-11-10 17:25] LABS: Basophils % 0.2 %; Eosinophils % 0.4 %; Hemoglobin 12.4 g/dL (11.5-15.3); Lymphocytes # 0.4 10^3/uL (0.8-4.8); Lymphocytes % 7.6 %; Mean Corpuscular HGB Conc 34.4 g/dL (30.0-36.0); Mean Corpuscular Hemoglobin 29.8 pg (28.0-34.0); Mean Corpuscular Volume 86.5 fl (81-99); Mean Platelet Volume 11.6 fL (7.4-10.4); Monocytes # 0.4 10^3/uL (0.2-0.9); Neutrophils % 83.4 %; Nucleated Red Blood Cells % 0 %; Platelet Count 132 10^3/cmm (130-400); Red Blood Count 4.16 10^6/uL (4.1-5.3); Red Cell Distribution Width 15.5 % (12.1-15.1)
[2021-11-10 17:33] LABS: Alanine Aminotransferase 10 U/L (0-33); Albumin Level 3.5 g/dL (3.5-5.2); Alkaline Phosphatase 134 IU/L (35-105); Anion Gap 14.8 (5-19); Aspartate Amino Transferase 12 U/L (0-32); Blood Urea Nitrogen 10 mg/dL (6-20); Calcium 8.6 mg/dL (8.5-10.5); Carbon Dioxide 21 mmol/L (22-29); Chloride 99 mmol/L (98-107); Creatinine Clr Calc Pharmacy 150.0071; Globulin 2.6 g/dL (1.3-4.6); Glomerular Filtration Rate 152.9 mL/min (90-130); Glucose 87 mg/dL (65-115); Osmolality Calculated 270 mOsm/kg (285-295); Potassium 3.8 mmol/L (3.5-5.1); Sodium 131 mmol/L (136-145); Total Bilirubin 0.5 mg/dL (0.15-1.2); Total Protein 6.1 g/dL (6.6-8.7); Uric Acid 3.7 mg/dL (2.4-5.7)
[2021-11-10 17:42] LABS: Urine Appearance Cloudy (CLEAR); Urine Color Other (Yellow)
[2021-11-10 17:43] LABS: Bilirubin Urine 1+ (Negative); Blood Urine Neg (Negative); Glucose Urine UA Norm (Normal); Ketones Urine 1+ (Negative); Leukocyte Esterase Urine Negative (Negative); Nitrate Urine Negative (Negative); Protein Urine Neg (Negative); Urobilinogen Urine 4 mg/dL (Negative); pH Urine 5 (5-7)
[2021-11-10 17:48] LABS: Urine Creatinine 317 mg/dL (28-217)
[2021-11-10 17:56] LABS: Urine Protein Random 32 mg/dL
== END 2021-11-10 18:45 | disposition home or self-care (01) ==
LOC: OPOB 16:36 → OBGYN 16:36
PROVIDERS: Visit Provider Obstetrics & Gynecology
DX: O26.899 Other specified pregnancy related conditions, unspecified trimester (principal); Z3A.00 Weeks of gestation of pregnancy not specified; H53.8 Other visual disturbances; R60.9 Edema, unspecified
CPT/HCPCS: 36415; 59025; 80053; 81003; 82570; 84156; 84550; 85025; 99211

== ENCOUNTER 2021-11-16 15:12 | Outpatient (CLI) | payer MEDICAID, SELFPAY ==
[2021-11-16 15:06] VITALS: BMI 22.3
[2021-11-16 15:27] VITALS: BP 104/66; PULSE 95
[2021-11-16 15:52] VITALS: RESP 16
[2021-11-16 16:00] LABS: Add Urine Microscopic? NO; Charge for UA Resulting for Rev
[2021-11-16 16:01] LABS: Basophils % 0.2 %; Eosinophils # 0.1 10^3/uL (0.0-0.8); Eosinophils % 0.9 %; Hematocrit 35.7 % (37.0-47.0); Lymphocytes # 1.3 10^3/uL (0.8-4.8); Lymphocytes % 23.9 %; Mean Corpuscular HGB Conc 33.6 g/dL (30.0-36.0); Mean Corpuscular Hemoglobin 29.5 pg (28.0-34.0); Mean Corpuscular Volume 87.7 fl (81-99); Mean Platelet Volume 11.7 fL (7.4-10.4); Monocytes # 0.3 10^3/uL (0.2-0.9); Monocytes % 5.2 %; Neutrophils # 3.88 10^3/uL (1.8-7.7); Neutrophils % 69.3 %; Nucleated Red Blood Cells % 0 %; Platelet Count 154 10^3/cmm (130-400); Red Blood Count 4.07 10^6/uL (4.1-5.3); Red Cell Distribution Width 15.4 % (12.1-15.1); White Blood Count 5.6 10^3/uL (4.0-10.0)
[2021-11-16 16:08] VITALS: BP 96/51; PULSE 91
[2021-11-16 16:10] LABS: Bilirubin Urine Neg (Negative); Blood Urine Neg (Negative); Glucose Urine UA Norm (Normal); Ketones Urine Negative (Negative); Nitrate Urine Negative (Negative); Protein Urine Neg (Negative); Urine Appearance Clear (CLEAR); Urine Color Yellow (Yellow); pH Urine 6.5 (5-7)
[2021-11-16 16:11] LABS: Leukocyte Esterase Urine Negative (Negative); Urobilinogen Urine 4 mg/dL (Negative)
[2021-11-16 16:19] LABS: Alanine Aminotransferase < 5 U/L (0-33); Albumin Level 3.2 g/dL (3.5-5.2); Alkaline Phosphatase 135 IU/L (35-105); Anion Gap 14.8 (5-19); Aspartate Amino Transferase 10 U/L (0-32); Blood Urea Nitrogen 7 mg/dL (6-20); Calcium 8.2 mg/dL (8.5-10.5); Carbon Dioxide 22 mmol/L (22-29); Chloride 100 mmol/L (98-107); Globulin 2.8 g/dL (1.3-4.6); Glomerular Filtration Rate 197.8 mL/min (90-130); Glucose 103 mg/dL (65-115); Osmolality Calculated 274 mOsm/kg (285-295); Potassium 3.8 mmol/L (3.5-5.1); Sodium 133 mmol/L (136-145); Total Bilirubin 0.3 mg/dL (0.15-1.2); Uric Acid 3.1 mg/dL (2.4-5.7)
[2021-11-16 16:21] LABS: Urine Creatinine 147 mg/dL (28-217); Urine Protein Random 14 mg/dL
[2021-11-16 16:22] VITALS: BP 103/56; PULSE 114
== END 2021-11-16 16:43 | disposition home or self-care (01) ==
LOC: OPOB 15:13 → OBGYN 15:14
PROVIDERS: Visit Provider Obstetrics & Gynecology
DX: O26.899 Other specified pregnancy related conditions, unspecified trimester (principal); Z3A.00 Weeks of gestation of pregnancy not specified; H53.8 Other visual disturbances
CPT/HCPCS: 36415; 59025; 80053; 81003; 82570; 84156; 84550; 85025; 99211

== ENCOUNTER → 2021-12-10 10:04 | Outpatient (BNVA) | payer MEDICAID, SELFPAY | PROVIDERS: Visit Provider Nurse Practitioner Women's Health | DX: O09.70 Supervision of high risk pregnancy due to social problems, unspecified trimester (principal); O99.891 Other specified diseases and conditions complicating pregnancy; R82.71 Bacteriuria; O99.019 Anemia complicating pregnancy, unspecified trimester; O99.013 Anemia complicating pregnancy, third trimester; O09.71 Supervision of high risk pregnancy due to social problems, first trimester; O99.119 Other diseases of the blood and blood-forming organs and certain disorders involving the immune mechanism complicating pregnancy, unspecified trimester; D69.6 Thrombocytopenia, unspecified | CPT/HCPCS: 84315; 85027; 87081; 87086 ==

== ENCOUNTER 2021-12-16 00:09 | Outpatient (CLI) | payer MEDICAID, SELFPAY ==
[2021-12-16] VITALS (11 sets, daily range): BP systolic 118–142; BP diastolic 72–92; PULSE 57–89; RESP 16–17; TEMP 36.8–36.9; BMI 24.0
[2021-12-16 00:35] LABS: Add Urine Culture? Yes; Bacteria Urine 2+ /hpf; Bilirubin Urine 1+ (Negative); Blood Urine Neg (Negative); Glucose Urine UA Norm (Normal); Ketones Urine Negative (Negative); Leukocyte Esterase Urine 1+ (Negative); Mucus Urine 2+ /hpf; Nitrate Urine Negative (Negative); Protein Urine 1+ (Negative); RBC Urine 0-4 /hpf (0-2); Squamous Epithelial Cell Urine 0-4 /hpf (0-5); Urine Appearance Clear (CLEAR); Urine Color Yellow (Yellow); Urobilinogen Urine 8 mg/dL (Negative); WBC Urine 15-25 /hpf (0-5); pH Urine 5 (5-7)
[2021-12-16] MEDS: dextrose 5%-sod chloride 0.45% 1,000 ML 999 ML IV ×2 (01:04→02:09)
[2021-12-16] MEDS: cefTRIAXone 2,000 MG in sodium chloride 0.9% (plus) 50 ML 100 MG IV (01:21)
[2021-12-16 02:59] LABS: Nitrazine Paper, PH Negative
== END 2021-12-16 03:25 | disposition home or self-care (01) ==
LOC: OPOB 00:09 → OBGYN 00:10
PROVIDERS: Visit Provider Obstetrics & Gynecology
DX: O26.899 Other specified pregnancy related conditions, unspecified trimester (principal); Z3A.00 Weeks of gestation of pregnancy not specified; N89.8 Other specified noninflammatory disorders of vagina
CPT/HCPCS: 59025; 81001; 83986; 84315; 87086; 99211; J0696; J7799

== ENCOUNTER 2021-12-16 17:18 | Inpatient (IN) | payer MEDICAID, SELFPAY ==
[2021-12-16] VITALS (60 sets, daily range): BP systolic 102–164; BP diastolic 58–100; PULSE 55–111; TEMP 36.1; O2SAT 98–99; BMI 24.6
[2021-12-16 17:51] LABS: Charge for UA Resulting for Rev
[2021-12-16 17:59] LABS: Add Urine Microscopic? YES; Bilirubin Urine Neg (Negative); Blood Urine 2+ (Negative); Glucose Urine UA Norm (Normal); Ketones Urine Negative (Negative); Leukocyte Esterase Urine Negative (Negative); Nitrate Urine Negative (Negative); Protein Urine 3+ (Negative); Specific Gravity, Urine 1.015 (1.005-1.030); Urine Appearance Clear (CLEAR); Urine Color Yellow (Yellow); Urobilinogen Urine Norm (Negative); pH Urine 6 (5-7)
[2021-12-16 18:00] LABS: Basophils % 0.4 %; Eosinophils # 0.1 10^3/uL (0.0-0.8); Eosinophils % 1.3 %; Hematocrit 36.2 % (37.0-47.0); Hemoglobin 11.9 g/dL (11.5-15.3); Lymphocytes # 1.6 10^3/uL (0.8-4.8); Lymphocytes % 22.4 %; Mean Corpuscular HGB Conc 32.9 g/dL (30.0-36.0); Mean Corpuscular Hemoglobin 28.7 pg (28.0-34.0); Mean Corpuscular Volume 87.4 fl (81-99); Mean Platelet Volume 12.9 fL (7.4-10.4); Monocytes # 0.5 10^3/uL (0.2-0.9); Monocytes % 6.5 %; Neutrophils # 4.74 10^3/uL (1.8-7.7); Neutrophils % 68.1 %; Nucleated Red Blood Cells % 0 %; Platelet Count 113 10^3/cmm (130-400); Red Blood Count 4.14 10^6/uL (4.1-5.3); Red Cell Distribution Width 14.1 % (12.1-15.1)
[2021-12-16 18:01] LABS: Add Urine Culture? Yes
[2021-12-16 18:18] LABS: Urine Creatinine 154 mg/dL (28-217)
[2021-12-16] MEDS: lactated ringers 1,000 ML 999 ML IV ×2 (18:27→20:37)
[2021-12-16 18:31] LABS: UPRO/UCREAT Ratio 1.41 mg/mg CR; Urine Protein Random 217 mg/dL
--- NOTE | 2021-12-16 19:03 | PM.OPHPUD ---
Labor & Delivery H&P Update Date of Procedure: December 16, 2021 Date H&P Performed: 12/10/21 H&P update information: I have reviewed H&P completed within last 30 days, I have examined patient prior to procedure, Changes to prior documentation as noted here and H&P is in [facility] [place] on date indicated Changes to previous documentation: Elevated blood pressure-rule out preeclampsia evaluation currently ongoing, early labor with advanced cervical dilation of 5 cm 75% and -2 station Admission Diagnosis:
[2021-12-16] MEDS: magnesium sulfate premix 4 GM/100 ML PREMIX IV (19:31)
[2021-12-16] MEDS: magnesium sulfate premix 20 GM/500 ML BAG IV (19:58)
[2021-12-16] MEDS: oxytocin 30 UNIT/500 ML BAG IV (20:20)
--- NOTE | 2021-12-16 21:08 | ANES.PREANE2 ---
Pre-Anesthetic Assessment Height/Weight: Height 1.6 m Weight 63.049 kg Temp Pulse BP O2 Del Method 97.0 F L 78 132/72 12/16/21 15:31 12/16/21 21:06 12/16/21 21:06 12/16/21 17:00 Preop Diagnosis: labor epidural Familial anesthetic complications: none Was Beta Lay taken within 24 hours: N/A Was Clonidine taken within 24 hours: N/A Last Intake: 09:00 Social No alcohol and No tobacco Exam alert, oriented x 3, clear to auscultation bilaterally and regular rate & rhythm Airway Submandibular: within normal limits Cervical ROM: within normal limits Mallampati: Class II Dentition: full and other (missing decayed front upper) Pulmonary None reported CV/HEM Hypertension (with admission) None reported Hepatic None reported GI Gastroesophageal Reflux Disease (with ) Metabolic None reported Musc/skel None reported Neuropsych Depression Anesthetic Plan ASA status: 2 Anesthesia: Regional (specify below) (epidural) Risk of > 500 ml blood loss (7ml/kg in children): No Medications/Allergies Home Medications Medication Instructions Recorded Confirmed Last Taken Type vit no.95-ferrous 1 tab PO DAILY 05/05/21 12/16/21 12/15/21 10:00 History fumarate 28 mg-folic acid 800 mcg tablet ( Multivitamins) acetaminophen 325 mg capsule 500 mg PO Q6H PRN Pain 10/09/21 12/16/21 10/08/21 09:00 History (Tylenol) calcium carbonate 200 mg calcium 200 mg PO TID 10/09/21 12/16/21 10/08/21 16:00 History (500 mg) chewable tablet (Tums) Allergies Allergy/AdvReac Type Severity Reaction Status Date / Time No Known Allergies Allergy Verified 12/16/21 13:05 Current Medications Generic Name Dose Route Start Last Admin Trade Name Freq PRN Reason Stop Dose Admin Lactated Ringer's 1,000 mls @ 999 mls/hr 12/16/21 17:03 12/16/21 18:27 Lactated Ringers IV 999 mls/hr .Q1H1M PRN Administration Per L&D Rescitation Protocol Dextrose/Lactated Ringer's 1,000 mls @ 125 mls/hr 12/16/21 17:15 12/16/21 18:27 Dextrose 5%-Lactated Ringers IV Not Given .Q8H LEE ANN Magnesium Sulfate 20 gm in 500 mls @ 50 mls/hr 12/16/21 18:45 12/16/21 19:58 Magnesium Sulfate Premix IV 50 mls/hr .Q10H LEE ANN Administration Oxytocin 30 unit in 500 mls @ 1 mls/hr 12/16/21 20:15 12/16/21 20:20 Pitocin IV 1 milliunit/min .Q24H LEE ANN 1 mls/hr Administration Protocol 1 MILLIUNIT/MIN Lactated Ringer's 1,000 mls @ 999 mls/hr 12/16/21 20:31 12/16/21 20:37 Lactated Ringers IV 999 mls/hr .Q1H1M PRN Administration See label comments PFSH Anesthesia Medical History Depression She was previously treated with medication but cannot remember what. She denies any current issues as of 05/20/21 No pertinent past medical history neghx: htn,dm,thyroid,dvt/pe PCP: Sheila Sanchez [facility] Surgical History [place] teeth removed wisdom teeth removed in [place], [place] Family History Grandmother Uterine cancer Maternal great grandmother--- dx age unknown Father Diabetes Denies family history of Colon cancer Ovarian cancer Heart disease Hyperlipidemia Breast cancer Family history of thyroid problem Hypertension Stroke Female Reproductive History Date of last menstrual period: 03/28/21 : 6 Data Anesthesia : 12/16/21 17:40 12/16/21 17:40 Short CBC 12/16/21 Range/Units 17:40 WBC 7.0 (4.0-10.0) 10^3/uL Hgb 11.9 (11.5-15.3) g/dL Hct 36.2 L (37.0-47.0) % MCV 87.4 (81-99) fl Plt Count 113 L (130-400) 10^3/cmm Neut % (Auto) 68.1 % Neut # (Auto) 4.74 (1.8-7.7) 10^3/uL Urine 12/16/21 Range/Units 17:29 Urine Color Yellow (Yellow) Urine Appearance Clear (CLEAR) Urine pH 6 (5-7) Ur Specific [place] 1.015 (1.005-1.030) Urine Protein 3+ H (Negative) Urine Glucose (UA) Norm (Normal) Urine Ketones Negative (Negative) Urine Nitrate Negative (Negative) Urine Bilirubin Neg (Negative) Ur Leukocyte Esterase Negative (Negative) Urine RBC (0-2) /hpf Urine WBC (0-5) /hpf Cardiac Studies: No Data to Display
--- NOTE | 2021-12-16 21:46 | ANES.PROC ---
Anesthesia Procedures Procedure/Date: 12/16/21 Epidural: Time Out Performed: Yes Consents Signed: Procedure Consent and NPO Consent Consent: requested by attending/covering physician, from patient, risks and benefits reviewed and patient agrees to proceed Lumbar Level: L3-L4 Epidural position: sitting Epidural procedure: sterile prep of area (betadine), 1% lidocaine to numb the area (3ml), 18 g needle, neg for paresthesia, test dose given, 1.5% xylocaine 1:200k epi (3ml/2ml), 0.2% Ropivacaine bolus ml (5ml), placed PCEA, no systemic response, sterile dressing applied (tegaderm), L.U.D. no apparent complications and 0.2% Ropiavacaine @ mls/hr (10ml/hr)
[2021-12-17] VITALS (49 sets, daily range): BP systolic 102–132; BP diastolic 60–92; PULSE 60–96; RESP 16; TEMP 36.9–37
[2021-12-17 01:17] LABS: Alanine Aminotransferase < 5 U/L (0-33); Albumin Level 2.9 g/dL (3.5-5.2); Alkaline Phosphatase 202 IU/L (35-105); Anion Gap 13.7 (5-19); Aspartate Amino Transferase 11 U/L (0-32); Blood Urea Nitrogen 8 mg/dL (6-20); Calcium 7.8 mg/dL (8.5-10.5); Carbon Dioxide 23 mmol/L (22-29); Chloride 103 mmol/L (98-107); Globulin 2.5 g/dL (1.3-4.6); Glomerular Filtration Rate 123.9 mL/min (90-130); Glucose 69 mg/dL (65-115); Osmolality Calculated 279 mOsm/kg (285-295); Potassium 3.7 mmol/L (3.5-5.1); Sodium 136 mmol/L (136-145); Total Bilirubin 0.3 mg/dL (0.15-1.2); Total Protein 5.4 g/dL (6.6-8.7); Uric Acid 4.1 mg/dL (2.4-5.7)
[2021-12-17 01:22] LABS: Magnesium Level (OB Only) 5.4 mg/dL (5.0-7.5)
[2021-12-17] MEDS: acetaminophen 325 mg Tablet 650 MG PO (03:19)
[2021-12-17] MEDS: magnesium sulfate premix 20 GM/500 ML BAG IV ×3 (03:45→23:44)
[2021-12-17] MEDS: lactated ringers 1,000 ML 75 ML IV (03:46)
[2021-12-17 07:34] LABS: Magnesium Level (OB Only) 6.6 mg/dL (5.0-7.5)
--- NOTE | 2021-12-17 07:44 | P.PN_ITS ---
Subjective Subjective: The patient was placed on magnesium sulfate for preeclampsia prophylaxis. She had pitocin started. She had an epidural placed for pain management and had SROM. This morning her cervix is 9/100/-2 station with a bulging forebag of water. Vitals/I&O/Wt Last Vital Signs Temp 97.0 F L 12/16/21 15:31 Pulse 83 12/17/21 07:36 Resp 16 12/17/21 00:00 BP 115/76 12/17/21 07:36 Pulse Ox 99 12/16/21 22:02 O2 Del Method 12/16/21 17:00 12/16/21 12/17/21 12/17/21 22:59 06:59 14:59 Intake Total 2105.751 / 2105.751 565.717 / 2671.468 Output Total 580 / 580 710 / 1290 Balance 1525.751 / 1525.751 -144.283 / 1381.468 Weight last 48 hrs Weight 139 lb Physical Exam Narrative: The patient is comfortable with her epidural. strip is category 1. Overall very reassuring. Const: COMMON NORMALS: no acute distress, average body habitus, patient oriented x3, no limitations, healthy appearing, alert and well nourished GENERAL APPEARANCE: cooperative, comfortable, well kempt and well developed ORIENTATION/CONSCIOUSNESS: Yes awake, Yes oriented to person, Yes oriented to place and Yes oriented to time GI: COMMON NORMALS: Soft to palpation and non-tender PALPATION: Yes Soft to palpation Extremity: COMMON NORMALS: no calf tenderness Neuro: COMMON NORMALS: patient oriented x3 SENSORIUM/ORIENTATION: Yes alert, Yes oriented to person, Yes oriented to place and Yes oriented to time Psych: APPEARANCE: Yes well kempt Urinary Catheter Management: Willis Latex: Cath Placed During This Visit: yes Reason for Continuing Indwelling Catheter: Accurate Measurement of Urinary Output in Critically Ill Patients Urinary Catheter Date of Insertion: 12/16/21 Urinary Catheter Time of Insertion: 19:35 Data : 12/16/21 17:40 12/17/21 00:42 A&P Assessment and plan (1) Pre-eclampsia: continue mag sulfate AROM forebag and discontinued pitocin anticipate Status: Acute Attestations Medical Necessity Statement*: The patient has preeclampsia. She will be here 2 midnights. Coding Level of Care Code Acute Local Superintendent for Chg Fwd Diagnoses Pre-eclampsia O14.90
[2021-12-17] MEDS: miSOPROStol 200 mcg Tablet 800 MCG PR (08:27)
[2021-12-17 09:36] LABS: Amphetamines Screen Urine Negative (Negative); Barbiturates Screen Urine Negative (Negative); Benzodiazepines Screen Urine Negative (Negative); Cocaine Screen Urine Negative (Negative); Opiate Screen Urine Negative (Negative); PCP Screen Urine Negative (Negative); THC Screen Urine Negative (Negative)
--- NOTE | 2021-12-17 09:42 | P.PCNOB_ITS ---
Delivery Note: Date of delivery: December 17, 2021 Pre-delivery diagnoses: iup@ 37 weeks 5 days, preeclampsia Post-delivery diagnoses: same-delivered Procedure: Delivering Physician: Dr. bal Estimated blood loss (mL): 200 Findings: term female in the AMBAR presentation with single nuchal cord. Pre-Delivery Course: The patient was sent from clinic for possible labor. She had 2+ plus protein in her urine in the clinic. Once in triage, she had some elevated blood pressures. Two were in the severe range. Preeclampsia workup was done and her urine protein/creatinine ratio was elevated at 1.4. She was admitted and had magnesium sulfate, as well as pitocin started. She received an epidural and had SROM. She achieved complete cervical dilation and a forebag had AROM performed. The pitocin was also discontinued at this time. About 20 minutes later, the patient began to push. Delivery: The patient had complete cervical dilation and began to push. The head delivered in the AMBAR position over an intact perineum under epidural anesthesia. There was a single nuchal cord reduced at the perineum. The shoulders and body delivered atraumatically. The baby was placed onto the mother's abdomen. The nose and mouth were bulb suctioned. The cord was clamped and cut. The placenta delivered spontaneously. It was inspected and found to be intact. Inspection of the perineum revealed no repair was required. Estimated blood loss 200 mL. Apgars on baby were 7 at 1 minute and 9 at 5 minutes. Weight of baby is 6 pounds 7 ounces. Mother and baby were stable post delivery. History History History 6 Term 2 Miscarriages/Ectopic 3 0 Living Children 2 Coding Level of Care Code Acute Mobile Security Specialist for Chg Patrice
--- NOTE | 2021-12-17 14:07 | ANE.PACU2 ---
Inpatient post-anesthesia follow up: Airway intact: Yes Vital signs: Temperature 97.0 F Pulse Rate 91 Respiratory Rate 16 Blood Pressure 126/83 Pulse Oximetry 99 Oxygen Delivery Me thod Room Air Oxygen Flow Rate Fraction of Inspir ed Oxygen Hydration adequate: Yes Nausea and vomiting: No Pain level: 2 Mental status: Baseline
[2021-12-17 14:16] LABS: Magnesium Level (OB Only) 6.6 mg/dL (5.0-7.5)
[2021-12-17] MEDS: ibuprofen 800 mg tablet PO ×2 (16:13→21:26)
[2021-12-17] MEDS: docusate sodium 100 mg Capsule PO (18:17)
[2021-12-17 19:46] LABS: Magnesium Level (OB Only) 6.2 mg/dL (5.0-7.5)
[2021-12-18] VITALS (21 sets, daily range): BP systolic 92–152; BP diastolic 54–80; PULSE 51–136; RESP 16; TEMP 35.9–36.7
[2021-12-18 01:48] LABS: Hematocrit 27.9 % (37.0-47.0); Hemoglobin 9.3 g/dL (11.5-15.3); Mean Corpuscular HGB Conc 33.3 g/dL (30.0-36.0); Mean Corpuscular Hemoglobin 29.3 pg (28.0-34.0); Mean Platelet Volume 12.4 fL (7.4-10.4); Platelet Count 118 10^3/cmm (130-400); Red Blood Count 3.17 10^6/uL (4.1-5.3); White Blood Count 8.6 10^3/uL (4.0-10.0)
[2021-12-18 02:20] LABS: Magnesium Level (OB Only) 6.4 mg/dL (5.0-7.5)
[2021-12-18 09:07] LABS: Magnesium Level (OB Only) 6.7 mg/dL (5.0-7.5)
[2021-12-18] MEDS: docusate sodium 100 mg Capsule PO ×2 (09:53→17:24)
[2021-12-18] MEDS: prenatal vitamin Capsule 1 CAP PO (09:53)
[2021-12-18] MEDS: ibuprofen 800 mg tablet PO ×3 (09:53→20:08)
--- NOTE | 2021-12-18 14:26 | PM.DCS ---
Discharge Providers Date of Admission: 12/16/21 17:18 Date of Discharge: December 18, 2021 Attending Provider at Admission: Christa Cates MD Attending Provider at Discharge: Christa Cates MD Diagnoses at Discharge Discharge Diagnosis (1) Pre-eclampsia: Status: Acute Reason for Visit Reason for Visit: contractions Hospital Course Hospital Course The patient was admitted for preeclampsia at term. She received magnesium sulfate prophylaxis. She had spontaneous delivery of a term . She did well . She received 24 hours of magnesium sulfate . She had good diuresis and was ready on day #2 for discharge. Physical Exam Narrative: no concerns today. Blood pressures have all been normal Const: COMMON NORMALS: no acute distress, average body habitus, patient oriented x3, no limitations, healthy appearing, alert and well nourished GENERAL APPEARANCE: cooperative, comfortable, well kempt and well developed ORIENTATION/CONSCIOUSNESS: Yes awake, Yes oriented to person, Yes oriented to place and Yes oriented to time Resp: COMMON NORMALS: normal respiratory effort EFFORT & INSPECTION: Yes able to speak in complete sentences GI: COMMON NORMALS: Soft to palpation and non-tender PALPATION: Yes Soft to palpation Extremity: COMMON NORMALS: no calf tenderness Neuro: COMMON NORMALS: patient oriented x3 SENSORIUM/ORIENTATION: Yes alert, Yes oriented to person, Yes oriented to place and Yes oriented to time Psych: APPEARANCE: Yes well kempt Urinary Catheter Management: Willis Latex: Cath Placed During This Visit: yes, but has since been removed by the nurse Reason for Continuing Indwelling Catheter: Decision to DC Catheter Urinary Catheter Date of Insertion: 12/16/21 Urinary Catheter Time of Insertion: 19:35 Date Urinary Catheter Removed: 12/18/21 Time Urinary Catheter Discontinued: 08:30 Discharge Data Studies Completed and Pending Laboratory Results WBC 8.6 10^3/uL (4.0-10.0) 12/18/21 01:35 RBC 3.17 10^6/uL (4.1-5.3) L 12/18/21 01:35 Hgb 9.3 g/dL (11.5-15.3) L 12/18/21 01:35 Hct 27.9 % (37.0-47.0) L 12/18/21 01:35 MCV 88.0 fl (81-99) 12/18/21 01:35 MCH 29.3 pg (28.0-34.0) 12/18/21 01:35 MCHC 33.3 g/dL (30.0-36.0) 12/18/21 01:35 RDW 14.0 % (12.1-15.1) 12/18/21 01:35 Plt Count 118 10^3/cmm (130-400) L 12/18/21 01:35 MPV 12.4 fL (7.4-10.4) H 12/18/21 01:35 Neut % (Auto) 68.1 % 12/16/21 17:40 Lymph % (Auto) 22.4 % 12/16/21 17:40 [place] % (Auto) 6.5 % 12/16/21 17:40 Eos % (Auto) 1.3 % 12/16/21 17:40 Baso % (Auto) 0.4 % 12/16/21 17:40 Neut # (Auto) 4.74 10^3/uL (1.8-7.7) 12/16/21 17:40 Lymph # (Auto) 1.6 10^3/uL (0.8-4.8) 12/16/21 17:40 [place] # (Auto) 0.5 10^3/uL (0.2-0.9) 12/16/21 17:40 Eos # (Auto) 0.1 10^3/uL (0.0-0.8) 12/16/21 17:40 Baso # (Auto) 0.0 10^3/uL (0.0-0.1) 12/16/21 17:40 Nucleated RBC % (auto) 0 % 12/16/21 17:40 Nucleated RBCs # 0.0 /100WBC 12/16/21 17:40 Sodium 136 mmol/L (136-145) 12/17/21 00:42 Potassium 3.7 mmol/L (3.5-5.1) 12/17/21 00:42 Chloride 103 mmol/L (98-107) 12/17/21 00:42 Carbon Dioxide 23 mmol/L (22-29) 12/17/21 00:42 Anion Gap 13.7 (5-19) 12/17/21 00:42 BUN 8 mg/dL (6-20) 12/17/21 00:42 Creatinine 0.6 mg/dL (0.5-0.9) 12/17/21 00:42 GFR Calculation 123.9 mL/min (90-130) 12/17/21 00:42 Glucose 69 mg/dL (65-115) 12/17/21 00:42 Calculated Osmolality 279 mOsm/kg (285-295) L 12/17/21 00:42 Uric Acid 4.1 mg/dL (2.4-5.7) 12/17/21 00:42 Calcium 7.8 mg/dL (8.5-10.5) L 12/17/21 00:42 Magnesium 6.7 mg/dL (5.0-7.5) 12/18/21 07:36 Total Bilirubin 0.3 mg/dL (0.15-1.2) 12/17/21 00:42 AST 11 U/L (0-32) 12/17/21 00:42 ALT < 5 U/L (0-33) 12/17/21 00:42 Alkaline Phosphatase 202 IU/L (35-105) H 12/17/21 00:42 Total Protein 5.4 g/dL (6.6-8.7) L 12/17/21 00:42 Albumin 2.9 g/dL (3.5-5.2) L 12/17/21 00:42 Globulin 2.5 g/dL (1.3-4.6) 12/17/21 00:42 Urine Color Yellow (Yellow) 12/16/21 17:29 Urine Appearance Clear (CLEAR) 12/16/21 17:29 Urine pH 6 (5-7) 12/16/21 17:29 Ur Specific [place] 1.015 (1.005-1.030) 12/16/21 17:29 Urine Protein 3+ (Negative) H 12/16/21 17:29 Urine Glucose (UA) Norm (Normal) 12/16/21 17:29 Urine Ketones Negative (Negative) 12/16/21 17:29 Urine Blood 2+ (Negative) H 12/16/21 17:29 Urine Nitrate Negative (Negative) 12/16/21 17:29 Urine Bilirubin Neg (Negative) 12/16/21 17:29 Urine Urobilinogen Norm mg/dL (Negative) 12/16/21 17:29 Ur Leukocyte Esterase Negative (Negative) 12/16/21 17:29 Urine RBC /hpf (0-2) 12/16/21 17:29 Urine WBC /hpf (0-5) 12/16/21 17:29 Ur Squamous Epith Cells /hpf (0-5) 12/16/21 17:29 Amorphous Sediment Not Reportable 12/16/21 17:29 Urine Bacteria /hpf (NONE) 12/16/21 17:29 U Random Total Protein 217 mg/dL 12/16/21 17:29 Urine Creatinine 154 mg/dL (28-217) 12/16/21 17:29 Protein/Creatinin Ratio 1.41 mg/mg CR 12/16/21 17:29 Urine Opiates Screen Negative ng/mL (Negative) 12/16/21 17:29 Ur Barbiturates Screen Negative ng/mL (Negative) 12/16/21 17:29 Ur Phencyclidine Scrn Negative ng/mL (Negative) 12/16/21 17:29 Ur Amphetamines Screen Negative ng/mL (Negative) 12/16/21 17:29 U Benzodiazepines Scrn Negative ng/mL (Negative) 12/16/21 17:29 Urine Cocaine Screen Negative ng/mL (Negative) 12/16/21 17:29 U Marijuana (THC) Screen Negative ng/mL (Negative) 12/16/21 17:29 Vitals Last Vital Signs Temp 98.1 F 12/18/21 09:55 Pulse 72 12/18/21 12:27 Resp 16 12/18/21 08:29 BP 113/66 12/18/21 12:27 Pulse Ox 99 12/16/21 22:02 O2 Del Method 12/16/21 17:00 Discharge Plan Discharge Patient Disposition: Home Condition: Stable Prescriptions: Continued PNV cmb#95-ferrous fumarate-FA [ Multivitamins] 28 mg iron- 800 mcg Tablet 1 tab PO DAILY calcium carbonate [Tums] 200 mg calcium (500 mg) Tablet,Chewable 200 mg PO TID acetaminophen [Tylenol] 325 mg Capsule 500 mg PO Q6H PRN (Reason: Pain) Discharge Orders: Discharge Order (Routine); Ordered 12/18/21 Ordered By: Maci Horn Patient Instructions: Opioid Safety Discharge Attestations Time Spent in Discharge Care*: less than 30 min Quality Metrics Clinical Quality Measures [ No reported AMI, CVA or VTE this stay] Coding Level of Care Code Acute Chg FW DC note Diagnoses Pre-eclampsia O14.90
== END 2021-12-18 20:20 | disposition home or self-care (01) | DRG 806 ==
LOC: OPOB 17:19 → OBGYN 17:19
PROVIDERS: Obstetrics & Gynecology; Admitting Provider Obstetrics & Gynecology; Visit Provider Obstetrics & Gynecology
DX: O14.94 Unspecified pre-eclampsia, complicating childbirth (principal); O99.12 Other diseases of the blood and blood-forming organs and certain disorders involving the immune mechanism complicating childbirth; Z37.0 Single live birth; D69.6 Thrombocytopenia, unspecified; O69.81X0 Labor and delivery complicated by cord around neck, without compression, not applicable or unspecified; O99.02 Anemia complicating childbirth; D64.9 Anemia, unspecified; Z3A.37 37 weeks gestation of pregnancy
CPT/HCPCS: 36415; 51702; 59025; 59409; 80053; 80306; 81001; 81003; 82570; 83735; 84156; 84550; 85025; 85027; 87086; 99211; J2795; J3475

== ENCOUNTER 2022-04-08 00:42 | Emergency (ER) | payer MEDICAID, SELFPAY ==
[2022-04-08 00:48] VITALS: BP 137/74; PULSE 62; RESP 16; TEMP 37.1; O2SAT 100; BMI 18.2
[2022-04-08 00:51] VITALS: PULSE 57; RESP 16; O2SAT 99
--- NOTE | 2022-04-08 00:54 | W.ED.DENTAL ---
HPI - Dental/Oral General: Chief complaint: Dental/Oral Stated complaint: Tooth Pain Time Seen by Provider: 04/08/22 00:50 History of Present Illness: 22-year-old female comes in today for complaints of dental pain. Patient has multiple caries in the mouth and her front 2 upper teeth have had severe pain for the last 2 days. No significant facial swelling is noted. Patient appears nontoxic. Patient has had a recent delivery of infant. Patient denies breast-feeding. Associated symptoms: Denies fever(s) Review of Systems Const: Denies: fever(s) ENMT: Reports: mouth pain and dental pain [facility] ED PFSH: Medical History Depression She was previously treated with medication but cannot remember what. She denies any current issues as of 05/20/21 No pertinent past medical history neghx: htn,dm,thyroid,dvt/pe PCP: Sheila Rosario [facility] Surgical History [place] teeth removed wisdom teeth removed in [place], [place] Family History Grandmother Uterine cancer Maternal great grandmother--- dx age unknown Father Diabetes Denies family history of Colon cancer Ovarian cancer Heart disease Hyperlipidemia Breast cancer Family history of thyroid problem Hypertension Stroke Female Reproductive History: Date of last menstrual period: 03/30/22 Physical Exam Const: COMMON NORMALS: alert HENMT: COMMON NORMALS: normocephalic HEAD & SCALP: normocephalic TEETH & GINGIVA: Yes poor dentition (Carious teeth with red erythema gingiva central incisors upper jaw) Neck/C-Spine: COMMON NORMALS: full ROM Resp: COMMON NORMALS: normal respiratory effort and clear to auscultation bilaterally AUSCULTATION: clear to auscultation bilaterally Cardio: COMMON NORMALS: regular rate RATE: regular rate Extremity: COMMON NORMALS: normal to inspection Neuro: SENSORIUM/ORIENTATION: Yes alert Skin: COMMON NORMALS: no rashes or lesions noted GENERAL SKIN EXAM: no rashes or lesions noted Course Vital Signs: Vital signs: Vital Signs Temperature 98.7 F 04/08/22 00:48 Pulse Rate 57 L 04/08/22 00:51 Respiratory Rate 16 11/24/22 00:51 Blood Pressure 137/74 04/08/22 00:48 Pulse Oximetry 99 04/08/22 00:51 Oxygen Delivery Me thod 04/08/22 00:51 MDM - Dental/Oral Medical Decision Making Patient comes in today for dental pain worse for the last 2 days. On exam patient has redness and mild swelling to the gingiva of the central incisors of the upper jaw. Posterior pharynx is normal. Differential diagnosis includes abscess, dental caries, dental pain. No signs of severe illness is noted. No injury is noted. Patient will be treated with amoxicillin for dental infection and some hydrocodone for severe pain. Recommend acetaminophen and ibuprofen otherwise for pain. Encourage follow-up with dentist for definitive care. Barriers to healthcare due to patient's lack of insurance. Discharge Plan Discharge Patient Disposition: Home Clinical Impression: Toothache, Dental caries Condition: Stable Prescriptions: New amoxicillin 500 mg capsule 1,000 mg PO BID 7 Days Qty: 28 0RF hydrocodone-acetaminophen 5-325 mg tablet 1 tab PO Q8H PRN (Reason: pain (scale score 7-10)) Qty: 6 0RF No Action PNV cmb#95-ferrous fumarate-FA [ Multivitamins] 28 mg iron- 800 mcg Tablet 1 tab PO DAILY calcium carbonate [Tums] 200 mg calcium (500 mg) Tablet,Chewable 200 mg PO TID acetaminophen [Tylenol] 325 mg Capsule 500 mg PO Q6H PRN (Reason: Pain) Discharge Orders: Discharge ED (Routine); Ordered 04/08/22 Ordered By: John Khan Discharge Diet: Usual diet Discharge Activity: Increase activity as tolerated Patient Instructions: Toothache (ED) Activity Restrictions/Additional Instructions: Home and rest. Drink plenty of fluids. Medications as directed. Follow-up with dentist for definitive care. Return to ER for new concerns, or worsening symptoms such as high fever greater than 100.4, inability to hold fluids down, or difficulty swallowing or breathing. Coding Level of Care Code ED Hoof Trimmer for Minda Ibrahim
[2022-04-08] MEDS: amoxicillin 500 mg Capsule 1000 MG PO (01:00)
[2022-04-08] MEDS: HYDROcodone-acetaminophen 5-325 mg Tablet 1 TAB PO (01:00)
[2022-04-08 01:01] VITALS: BP 114/79; PULSE 64; RESP 15; O2SAT 97
== END 2022-04-08 01:15 | disposition home or self-care (01) ==
PROVIDERS: Emergency Provider Nurse Practitioner Family
DX: K02.9 Dental caries, unspecified (principal); K04.7 Periapical abscess without sinus; Z75.8 Other problems related to medical facilities and other health care
CPT/HCPCS: 99283

== ENCOUNTER 2022-07-29 18:09 | Emergency (ER) | payer MEDICAID, SELFPAY ==
[2022-07-29 18:15] VITALS: BP 117/71; PULSE 89; RESP 18; TEMP 36.7; O2SAT 98; BMI 21.2
--- NOTE | 2022-07-29 18:27 | W.ED.PREGNAN ---
HPI - General: Chief complaint: OB/Uterine Contractions Stated complaint: 17 Weeks Preg\Cramping Time Seen by Provider: 07/29/22 18:21 Source: patient Mode of arrival: ambulatory Limitations: no limitations History of Present Illness: 22-year-old female is roughly 16 weeks states she has had some slight lower abdominal cramping throughout the day states it is a diffuse cramping over her lower abdomen she rates a 2 out of 10 denies any sharp pain denies any dysuria denies any vaginal bleeding or discharge she has had no vomiting. Date of Last Menstrual Period: 03/03/22 Associated symptoms: Reports abdominal pain; Deny dysuria or headache(s) Review of Systems Const: Denies: fever(s), chills, body aches or change in appetite Eyes: Denies: blurry vision or eye discomfort ENMT: Denies: throat pain or dental pain Card: Denies: chest pain Resp: Denies: dyspnea GI: Reports: abdominal pain : Denies: dysuria Musc: Denies: neck pain or back pain Skin/Breast: Denies: rash Neuro: Denies: headache(s) Psych: Denies: depression Joshua/Lymph: Denies: easy bruising All/Imm: Denies: urticaria PFSH ED PFSH: Medical History Depression She was previously treated with medication but cannot remember what. She denies any current issues as of 05/20/21 No pertinent past medical history neghx: htn,dm,thyroid,dvt/pe PCP: Sheila Sanchez [facility] clinic Surgical History [place] teeth removed wisdom teeth removed in [place], [place] Family History Grandmother Uterine cancer Maternal great grandmother--- dx age unknown Father Diabetes Denies family history of Colon cancer Ovarian cancer Heart disease Hyperlipidemia Breast cancer Family history of thyroid problem Hypertension Stroke Female Reproductive History: Date of last menstrual period: 03/03/22 Physical Exam Const: COMMON NORMALS: no acute distress, patient oriented x3 and healthy appearing HENMT: COMMON NORMALS: normocephalic and atraumatic HEAD & SCALP: normocephalic and atraumatic Eye: COMMON NORMALS: Equal, round and reactive pupils present and EOMs intact bilaterally PUPIL: Yes Equal, round and reactive pupils present Neck/C-Spine: COMMON NORMALS: full ROM and supple Chest: COMMONS NORMALS: normal inspection of the chest and normal palpation of entire chest wall Resp: COMMON NORMALS: normal respiratory effort, No retractions, No use of accessory muscles and clear to auscultation bilaterally AUSCULTATION: clear to auscultation bilaterally Cardio: COMMON NORMALS: regular rate, regular rhythm and No murmurs present (Cardio) RATE: regular rate RHYTHM: regular rhythm GI: COMMON NORMALS: Normal to inspection, nondistended, normoactive bowel sounds present, Soft to palpation, non-tender and no masses PALPATION: Yes Soft to palpation Extremity: COMMON NORMALS: normal to inspection and full ROM Neuro: COMMON NORMALS: patient oriented x3, moves all extremities and no focal motor deficits Psych: COMMON NORMALS: mental status grossly normal, Normal thought process present and cooperative THOUGHT PROCESS: Normal thought process present Skin: COMMON NORMALS: no rashes or lesions noted and no wounds GENERAL SKIN EXAM: no rashes or lesions noted Course Vital Signs: Vital signs: Vital Signs Temperature 98.1 F 07/29/22 18:15 Pulse Rate 89 07/29/22 18:15 Respiratory Rate 18 07/29/22 18:15 Blood Pressure 117/71 07/29/22 18:15 Pulse Oximetry 98 07/29/22 18:15 Oxygen Delivery Me thod 07/29/22 18:15 MDM - OB/Uterine Contractions Medical Decision Making Patient presents with cramping in ultrasound showed IUP consistent with dates heart rate of 155 she feels much improved after Reglan would like to go home she is stable for discharge at this time she is to follow-up with OB and return if worsening. Lab Data Laboratory Results Urine Color Yellow (Yellow) 07/29/22 18:50 Urine Appearance Clear (CLEAR) 07/29/22 18:50 Urine pH 7 (5-7) 07/29/22 18:50 Ur Specific [place] 1.010 (1.005-1.030) 07/29/22 18:50 Urine Protein Neg (Negative) 07/29/22 18:50 Urine Glucose (UA) Norm (Normal) 07/29/22 18:50 Urine Ketones Negative (Negative) 07/29/22 18:50 Urine Blood Neg (Negative) 07/29/22 18:50 Urine Nitrate Negative (Negative) 07/29/22 18:50 Urine Bilirubin Neg (Negative) 07/29/22 18:50 Urine Urobilinogen 1 mg/dL (Negative) H 07/29/22 18:50 Ur Leukocyte Esterase Negative (Negative) 07/29/22 18:50 Discharge Plan Discharge Patient Disposition: Home Clinical Impression: Abdominal pain affecting Condition: Stable Prescriptions: New Reglan 10 mg tablet 10 mg PO Q6H PRN (Reason: nausea and vomiting) Qty: 20 0RF No Action PNV cmb#95-ferrous fumarate-FA [ Multivitamins] 28 mg iron- 800 mcg Tablet 1 tab PO DAILY calcium carbonate [Tums] 200 mg calcium (500 mg) Tablet,Chewable 200 mg PO TID acetaminophen [Tylenol] 325 mg Capsule 500 mg PO Q6H PRN (Reason: Pain) hydrocodone-acetaminophen 5-325 mg tablet 1 tab PO Q8H PRN (Reason: pain (scale score 7-10)) Qty: 6 0RF Discharge Orders: Discharge ED (Routine); Ordered 07/29/22 Ordered By: Deacon Causey Referrals: Ronen Bynum MD [Primary Care Provider] - 1-3 days Discharge Diet: Advance as tolerated Discharge Activity: Resume usual activity Patient Instructions: (ED), Abdominal Pain (ED) Coding Level of Care Code ED Yacht Rigger for Minda Ibrahim
[2022-07-29] MEDS: diphenhydrAMINE 50 mg/mL SDV 1mL IVP (18:47)
[2022-07-29] MEDS: sodium chloride 0.9% 1,000 ML 999 ML IV (18:47)
[2022-07-29] MEDS: metoclopramide 5 mg/mL SDV 2 mL 10 MG IVP (18:47)
--- NOTE | 2022-07-29 18:55 | PC.NURSE ---
REPORT GIVEN TO [facility].
[2022-07-29 18:57] LABS: Add Urine Microscopic? NO; Charge for UA Resulting for Rev
[2022-07-29 19:04] LABS: Bilirubin Urine Neg (Negative); Blood Urine Neg (Negative); Glucose Urine UA Norm (Normal); Ketones Urine Negative (Negative); Leukocyte Esterase Urine Negative (Negative); Nitrate Urine Negative (Negative); Protein Urine Neg (Negative); Urine Appearance Clear (CLEAR); Urine Color Yellow (Yellow); Urobilinogen Urine 1 mg/dL (Negative); pH Urine 7 (5-7)
[2022-07-29 19:15] VITALS: BP 93/63; PULSE 78; RESP 14
== END 2022-07-29 19:16 | disposition home or self-care (01) ==
PROVIDERS: Emergency Provider Emergency Medicine; PCP Family Medicine
DX: O26.892 Other specified pregnancy related conditions, second trimester (principal); R10.30 Lower abdominal pain, unspecified; Z3A.16 16 weeks gestation of pregnancy
CPT/HCPCS: 81003; 96374; 96375; 99284; J1200; J2765; J7030

== ENCOUNTER 2022-11-03 16:51 | Outpatient (CLI) | payer MEDICAID, SELFPAY ==
[2022-11-03 16:55] VITALS: BMI 25.0
[2022-11-03 17:10] VITALS: BP 105/60; PULSE 105
[2022-11-03 17:29] VITALS: BP 104/65; PULSE 106
[2022-11-03 17:35] LABS: Bilirubin Urine Neg (Negative); Blood Urine Neg (Negative); Glucose Urine UA Trace (Normal); Ketones Urine Negative (Negative); Nitrate Urine Negative (Negative); Protein Urine Neg (Negative); Specific Gravity, Urine 1.025 (1.005-1.030); Urine Appearance SL Hazy (CLEAR); Urine Color Dark Yellow (Yellow); pH Urine 6 (5-7)
[2022-11-03 17:36] LABS: Leukocyte Esterase Urine 2+ (Negative); Urobilinogen Urine 4 mg/dL (Negative)
[2022-11-03 17:47] LABS: Bacteria Urine 1+ /hpf; Mucus Urine TRACE /hpf; RBC Urine RARE /hpf (0-2); Squamous Epithelial Cell Urine 0-4 /hpf (0-5)
[2022-11-03 17:48] LABS: Add Urine Culture? No
[2022-11-03 17:49] VITALS: BP 108/68; PULSE 107
[2022-11-03 18:12] VITALS: BP 108/68; PULSE 107
== END 2022-11-03 18:13 | disposition home or self-care (01) ==
LOC: OPOB 16:55 → OBGYN 16:57
PROVIDERS: PCP Family Medicine; Visit Provider Family Medicine
DX: O26.899 Other specified pregnancy related conditions, unspecified trimester (principal); R25.2 Cramp and spasm; Z3A.00 Weeks of gestation of pregnancy not specified
CPT/HCPCS: 59025; 81001; 99211

== ENCOUNTER 2022-12-12 23:44 | Outpatient (CLI) | payer MEDICAID, SELFPAY ==
[2022-12-12 23:40] VITALS: BMI 28.3
[2022-12-13] VITALS (9 sets, daily range): BP systolic 101–120; BP diastolic 60–74; PULSE 80–100; RESP 16; TEMP 36–36.3
[2022-12-13 00:35] LABS: Bilirubin Urine Neg (Negative); Blood Urine Neg (Negative); Glucose Urine UA Norm (Normal); Ketones Urine Negative (Negative); Leukocyte Esterase Urine 2+ (Negative); Nitrate Urine Negative (Negative); Protein Urine Neg (Negative); Specific Gravity, Urine 1.005 (1.005-1.030); Urine Appearance Clear (CLEAR); Urine Color Colorless (Yellow); Urobilinogen Urine Norm (Negative); pH Urine 7 (5-7)
[2022-12-13 00:39] LABS: Bacteria Urine 1+ /hpf; Squamous Epithelial Cell Urine 25-40 /hpf (0-5); WBC Urine >100 /hpf (0-5)
== END 2022-12-13 02:12 | disposition home or self-care (01) ==
LOC: OPOB 23:45 → OBGYN 23:46
PROVIDERS: PCP Family Medicine; Visit Provider Family Medicine
DX: O26.899 Other specified pregnancy related conditions, unspecified trimester (principal); R51.9 Headache, unspecified; Z3A.00 Weeks of gestation of pregnancy not specified
CPT/HCPCS: 59025; 81001; 87086; 99211

== ENCOUNTER 2022-12-16 21:49 | Outpatient (CLI) | payer MEDICAID, SELFPAY ==
[2022-12-16 21:51] VITALS: BMI 27.8
[2022-12-16 22:07] VITALS: BP 117/64; PULSE 127
[2022-12-16 22:27] VITALS: TEMP 36.6
[2022-12-16 22:32] LABS: Nitrazine Paper, PH Negative
[2022-12-16 22:32] LABS: Actim Prom Negative
[2022-12-17] VITALS (13 sets, daily range): BP systolic 104–125; BP diastolic 59–80; PULSE 79–96; RESP 16
[2022-12-17 02:12] LABS: Basophils % 0.4 %; Eosinophils # 0.1 10^3/uL (0.0-0.8); Eosinophils % 0.7 %; Hematocrit 30.1 % (37.0-47.0); Hemoglobin 9.1 g/dL (11.5-15.3); Lymphocytes # 1.8 10^3/uL (0.8-4.8); Mean Corpuscular HGB Conc 30.2 g/dL (30.0-36.0); Mean Corpuscular Hemoglobin 24.3 pg (28.0-34.0); Mean Corpuscular Volume 80.3 fl (81-99); Mean Platelet Volume 12.6 fL (7.4-10.4); Monocytes # 0.6 10^3/uL (0.2-0.9); Monocytes % 7.6 %; Neutrophils # 5.69 10^3/uL (1.8-7.7); Neutrophils % 68.6 %; Nucleated Red Blood Cells % 0 %; Platelet Count 143 10^3/cmm (130-400); Red Blood Count 3.75 10^6/uL (4.1-5.3); Red Cell Distribution Width 15.8 % (12.1-15.1); White Blood Count 8.3 10^3/uL (4.0-10.0)
[2022-12-17] MEDS: dextrose 5%-lactated ringers 1,000 ML 125 ML IV (02:16)
[2022-12-17] MEDS: ampicillin 2,000 MG in sodium chloride 0.9% (plus) 50 ML 100 MG IV (02:16)
[2022-12-17 07:21] LABS: Actim Prom Negative
--- NOTE | 2022-12-17 07:27 | P.TNLD_ITS ---
OB L&D Triage Visit Information: Date of evaluation: 12/17/22 Comments/Additional reason(s) for visit: The patient is a 22-year-old multigravida female at 36 weeks estimated gestational age who presented to the OB department complaining of contractions. She was evaluated and found to have contractions that were happening inconsistently every 3 to 5 minutes. She did not appear to be in pain during her contractions. Her cervix did change from a 2 to 3 cm. As result we continue to monitor the patient. Through the night, her contractions slowly spaced out. In the morning she had a gush of fluid and it was found to be actin PROM negative. She had no other leaking after the gush of fluid. She once again had no signs of pain or discomfort. The baby had a reactive strip through most of the night. Her has otherwise been unremarkable. She is understandably sick of being , and was very hopeful that she could have a baby during his hospital stay. I did my best to help her understand why it is better for her to go home at this time. Evaluation: monitor accelerations: Present 15x15 Cervical dilation (cm): 3 station: -3 Laboratory results: Laboratory Tests 12/16/22 12/16/22 12/17/22 22:09 22:32 01:40 WBC 8.3 RBC 3.75 L Hgb 9.1 L Hct 30.1 L MCV 80.3 L MCH 24.3 L MCHC 30.2 RDW 15.8 H Plt Count 143 MPV 12.6 H Neut % (Auto) 68.6 Lymph % (Auto) 22.0 [place] % (Auto) 7.6 Eos % (Auto) 0.7 Baso % (Auto) 0.4 Neut # (Auto) 5.69 Lymph # (Auto) 1.8 [place] # (Auto) 0.6 Eos # (Auto) 0.1 Baso # (Auto) 0.0 Nucleated RBC % (a uto) 0 Nucleated RBCs # 0.0 Insulin-like GF I Negative Fluid pH (paper) Negative 12/17/22 06:55 WBC RBC Hgb Hct MCV MCH MCHC RDW Plt Count MPV Neut % (Auto) Lymph % (Auto) [place] % (Auto) Eos % (Auto) Baso % (Auto) Neut # (Auto) Lymph # (Auto) [place] # (Auto) Eos # (Auto) Baso # (Auto) Nucleated RBC % (a uto) Nucleated RBCs # Insulin-like GF I Negative Fluid pH (paper) Vital signs: Vital Signs - 24 hr 12/16/22 22:07 12/16/22 22:27 12/17/22 00:56 Temperature 97.9 F Pulse Rate 127 H 94 Respiratory Rate Blood Pressure 117/64 118/70 Oxygen Delivery Me thod 12/17/22 01:10 12/17/22 01:26 12/17/22 01:24 Temperature Pulse Rate 81 88 Respiratory Rate 16 Blood Pressure 125/71 125/73 Oxygen Delivery Me thod 12/17/22 02:05 12/17/22 02:19 12/17/22 02:34 Temperature Pulse Rate 80 90 88 Respiratory Rate Blood Pressure 119/66 116/80 117/76 Oxygen Delivery Me thod 12/17/22 02:49 12/17/22 03:05 12/17/22 03:19 Temperature Pulse Rate 88 88 96 Respiratory Rate Blood Pressure 115/76 107/67 104/65 Oxygen Delivery Me thod 12/17/22 03:35 12/17/22 07:23 12/16/22 22:27 Temperature 97.9 F Pulse Rate 94 79 Respiratory Rate Blood Pressure 115/65 109/59 Oxygen Delivery Me thod 12/17/22 01:24 12/17/22 01:29 Temperature Pulse Rate Respiratory Rate 16 Blood Pressure Oxygen Delivery Me thod Room Air Final Diagnosis Final Diagnosis (1) 36 weeks gestation of : Plan: The patient has not made any cervical change management lead 7 hours. Her contractions are spaced out. We will go ahead and send her home with instructions to return when her contractions are happening consistently less than every 5 minutes and are painful enough that she has to breathe through them. Status: Acute Code(s): Z3A.36 - 36 weeks gestation of Coding Level of Care Code Acute Code for Chg Fwd Diagnoses 36 weeks gestation of Z3A.36
== END 2022-12-17 08:10 | disposition home or self-care (01) ==
LOC: OPOB 21:50 → OBGYN 12-17 01:29
PROVIDERS: PCP Family Medicine; Visit Provider Family Medicine
DX: O47.9 False labor, unspecified (principal); Z3A.36 36 weeks gestation of pregnancy
CPT/HCPCS: 36415; 59025; 83986; 84112; 85025; 99211; J0290; J7121

== ENCOUNTER 2022-12-19 | Inpatient (IN) | payer MEDICAID, SELFPAY ==
[2022-12-18] VITALS (13 sets, daily range): BP systolic 116–126; BP diastolic 58–85; PULSE 78–114; RESP 15; TEMP 36.6; O2SAT 100; BMI 27.4
[2022-12-18 22:44] LABS: Basophils % 0.4 %; Eosinophils % 0.4 %; Hematocrit 32.6 % (37.0-47.0); Hemoglobin 9.7 g/dL (11.5-15.3); Lymphocytes # 1.6 10^3/uL (0.8-4.8); Lymphocytes % 21.6 %; Mean Corpuscular HGB Conc 29.8 g/dL (30.0-36.0); Mean Corpuscular Hemoglobin 23.9 pg (28.0-34.0); Mean Corpuscular Volume 80.3 fl (81-99); Mean Platelet Volume 13.1 fL (7.4-10.4); Monocytes # 0.6 10^3/uL (0.2-0.9); Monocytes % 8.3 %; Neutrophils # 5.13 10^3/uL (1.8-7.7); Neutrophils % 68.8 %; Nucleated Red Blood Cells % 0 %; Platelet Count 120 10^3/cmm (130-400); Red Blood Count 4.06 10^6/uL (4.1-5.3); Red Cell Distribution Width 15.5 % (12.1-15.1); White Blood Count 7.5 10^3/uL (4.0-10.0)
[2022-12-18] MEDS: lactated ringers 1,000 ML 999 ML IV (22:53)
[2022-12-18] MEDS: ampicillin 2,000 MG in sodium chloride 0.9% (plus) 50 ML 100 MG IV (22:53)
[2022-12-18 23:01] LABS: Amphetamines Screen Urine Negative (Negative); Barbiturates Screen Urine Negative (Negative); Benzodiazepines Screen Urine Negative (Negative); Cocaine Screen Urine Negative (Negative); Opiate Screen Urine Negative (Negative); PCP Screen Urine Negative (Negative); THC Screen Urine Negative (Negative)
[2022-12-18] MEDS: ROPivacaine syringe 100 MG/50 ML SYRINGE 10 MG EPIDURAL (23:53)
--- NOTE | 2022-12-18 23:59 | P.ANESASSM_ITS ---
Pre-Anesthetic Assessment Height/Weight: Height 1.6 m Weight 70.307 kg Temp Pulse Resp BP Pulse Ox O2 Del Method 97.8 F 96 15 122/74 100 Room Air 12/18/22 21:43 12/18/22 23:55 12/18/22 21:43 12/18/22 23:55 12/18/22 23:50 12/18/22 23:04 Social Tobacco and No alcohol GI Gastroesophageal Reflux Disease Metabolic Thrombocytopenia Musc/sk Scoliosis Anesthetic Plan ASA status: 2E Anesthesia: Regional (specify below) (Labor epidural ) Other Pertinent Information Must have a platelet count drawn immediately before epidural catheter is removed; nursing staff x2 notified at bedside. Medications/Allergies Allergies Allergy/AdvReac Type Severity Reaction Status Date / Time No Known Allergies Allergy Verified 12/18/22 22:32 Current Medications Generic Name Dose Route Start Last Admin Trade Name Freq PRN Reason Stop Dose Admin Lactated Ringer's 1,000 mls @ 999 mls/hr 12/18/22 22:37 12/18/22 22:53 Lactated Ringers IV 999 mls/hr .Q1H1M PRN Administration See label comments [facility] Anesthesia Medical History Depression She was previously treated with medication but cannot remember what. She denies any current issues as of 05/20/21 No pertinent past medical history neghx: htn,dm,thyroid,dvt/pe PCP: [facility] Surgical History Spencer teeth removed wisdom teeth removed in [place], [place] Family History Grandmother Uterine cancer Maternal great grandmother--- dx age unknown Father Diabetes Denies family history of Colon cancer Ovarian cancer Heart disease Hyperlipidemia Breast cancer Family history of thyroid problem Hypertension Stroke Social History Substance/Drug Use: never Female Reproductive History : 7 Data Anesthesia 12/18/22 22:13 Short CBC 12/18/22 Range/Units 22:13 WBC 7.5 (4.0-10.0) 10^3/uL Hgb 9.7 L (11.5-15.3) g/dL Hct 32.6 L (37.0-47.0) % MCV 80.3 L (81-99) fl Plt Count 120 L (130-400) 10^3/cmm Neut % (Auto) 68.8 % Neut # (Auto) 5.13 (1.8-7.7) 10^3/uL Blood Bank 12/18/22 22:13 Blood Type B Positive Rho(D) Type Positive Antibody Screen Negative Cardiac Studies: No Data to Display
[2022-12-19] VITALS (45 sets, daily range): BP systolic 85–124; BP diastolic 44–78; PULSE 75–130; TEMP 36.8–37.1; O2SAT 98–99
--- NOTE | 2022-12-19 00:02 | ANES.PROC ---
Anesthesia Procedures Procedure/Date: 12/19/22 Epidural: Time Out Performed: Yes Consents Signed: Procedure Consent Lumbar Level: L4-L5 Epidural position: sitting Epidural procedure: sterile prep of area, 1% lidocaine to numb the area, negative for paresthesia passed, neg for paresthesia, test dose given, 1.5% xylocaine 1:200k epi, no systemic response, sterile dressing applied, L.U.D. no apparent complications and 0.2% Ropiavacaine @ mls/hr (10 ml/hr with 5 ml bolus) Other Information: Easy single uncomplicated pass
[2022-12-19] MEDS: dextrose 5%-lactated ringers 1,000 ML 125 ML IV ×2 (00:20→09:27)
[2022-12-19] MEDS: ampicillin 1,000 MG in sodium chloride 0.9% (plus) 50 ML 100 MG IV ×2 (03:00→06:42)
[2022-12-19] MEDS: ROPivacaine syringe 100 MG/50 ML SYRINGE 10 MG EPIDURAL ×2 (04:05→08:24)
--- NOTE | 2022-12-19 09:41 | PM.OPHPUD ---
Labor & Delivery H&P Update Date of Procedure: December 19, 2022 Date H&P Performed: 12/19/22 Admission Diagnosis: IUP at 37w0d gestation Active labor Planned procedure: expectant management of acitve labor
--- NOTE | 2022-12-19 10:08 | P.PCNOB_ITS ---
Delivery Note: Date of delivery: December 19, 2022 Estimated blood loss (mL): 200 Pre-Delivery Course: The patient had routine care with Dr. Bynum at [facility]. labs: Blood type B+, antibody negative, rubella equivocal, GC chlamydia negative, HIV nonreactive, hepatitis B nonreactive, hepatitis C nonreactive, RPR nonreactive, she passed her glucose tolerance test. Her GBS resulted at 0801 the morning of delivery and was negative. Since she had been GBS unknown known she received multiple doses of ampicillin prior to delivery. Delivery: This is a 22-year-old G7, P3 at 37 weeks 0 days gestation who presented last night complaining of rupture of membranes. Nitrazine was equivocal and a bulging bag of water was present. The patient was maude about every 3 to 5 minutes and was already 6 to 7 cm dilated. She was admitted for expectant management. Her GBS was unknown and she was started on ampicillin protocol. She received multiple doses of ampicillin prior to delivery. She received an epidural for pain management. When she was 9 cm dilated she underwent artificial rupture of membranes with clear fluid. She only had to push through 1 contraction and had a normal spontaneous vaginal delivery of a viable male infant Apgars 9 and 9 over an intact perineum. The infant was suctioned at delivery and placed on the mother's chest. The cord was clamped and cut. The placenta was delivered grossly intact and normal to inspection. There were no lacerations. GBS resulted negative. Rupture membranes was less than 1 hour prior to delivery. History History History 6 Term 2 0 Miscarriages/Ectopic 3 Living Children 2 Coding Level of Care Code Acute Code for Chg Fwd Diagnoses
[2022-12-19 11:04] LABS: Basophils % 0.3 %; Eosinophils % 0.2 %; Hematocrit 28.4 % (37.0-47.0); Hemoglobin 8.5 g/dL (11.5-15.3); Lymphocytes # 1.6 10^3/uL (0.8-4.8); Mean Corpuscular HGB Conc 29.9 g/dL (30.0-36.0); Mean Corpuscular Hemoglobin 24.3 pg (28.0-34.0); Mean Corpuscular Volume 81.1 fl (81-99); Mean Platelet Volume 12.3 fL (7.4-10.4); Monocytes # 0.6 10^3/uL (0.2-0.9); Monocytes % 6.5 %; Nucleated Red Blood Cells % 0 %; Platelet Count 131 10^3/cmm (130-400); Red Cell Distribution Width 15.9 % (12.1-15.1); White Blood Count 8.7 10^3/uL (4.0-10.0)
[2022-12-19] MEDS: benzocaine-menthol 78 gm Canister 1 SPRAY TOPICAL (12:27)
[2022-12-19] MEDS: lanolin oint 7 gm 1 APPLIC TOPICAL (12:28)
[2022-12-19] MEDS: ibuprofen 800 mg tablet PO ×2 (14:30→21:42)
[2022-12-19] MEDS: docusate sodium 100 mg Capsule PO (19:43)
[2022-12-19] MEDS: acetaminophen 325 mg Tablet 650 MG PO (19:44)
[2022-12-19 22:54] LABS: Hematocrit 25.4 % (37.0-47.0); Hemoglobin 7.7 g/dL (11.5-15.3); Mean Corpuscular HGB Conc 30.3 g/dL (30.0-36.0); Mean Corpuscular Hemoglobin 24.4 pg (28.0-34.0); Mean Corpuscular Volume 80.6 fl (81-99); Mean Platelet Volume 12.5 fL (7.4-10.4); Platelet Count 121 10^3/cmm (130-400); Red Blood Count 3.15 10^6/uL (4.1-5.3); Red Cell Distribution Width 15.5 % (12.1-15.1); White Blood Count 9.2 10^3/uL (4.0-10.0)
[2022-12-20] VITALS: BP 112/72; PULSE 84; TEMP 36.8; O2SAT 99
[2022-12-20 04:15] VITALS: BP 117/78; PULSE 67; RESP 15; TEMP 36.7; O2SAT 96
--- NOTE | 2022-12-20 08:00 | ANE.PACU2 ---
Inpatient post-anesthesia follow up: Airway intact: Yes Vital signs: Temperature 98.2 F Pulse Rate 70 Respiratory Rate 16 Blood Pressure 112/72 Pulse Oximetry 96 Oxygen Delivery Me thod Room Air Oxygen Flow Rate Fraction of Inspir ed Oxygen Hydration adequate: Yes Nausea and vomiting: No Pain level: 1 Mental status: Baseline
[2022-12-20 09:58] VITALS: BP 113/78; PULSE 72; RESP 16; TEMP 36.6
[2022-12-20] MEDS: lactated ringers 1,000 ML 999 ML IV (11:30)
[2022-12-20] MEDS: metoclopramide 5 mg/mL SDV 2 mL 10 MG IVP (11:56)
[2022-12-20] MEDS: citric acid-sodium citrate 30 mL UDC PO (11:56)
[2022-12-20] MEDS: ceFAZolin 2,000 MG in sodium chloride 0.9% (plus) 50 ML 100 MG IV (11:57)
--- NOTE | 2022-12-20 12:14 | PM.DCS ---
Discharge Providers Date of Admission: 12/19/22 00:00 Date of Discharge: December 20, 2022 Attending Provider at Admission: Jennifer Acevedo MD Attending Provider at Discharge: Jennifer Acevedo MD Primary Care Provider: Ronen Bynum MD Reason for Visit Reason for Visit: Possible ROM, contractions since 12/17/22 Hospital Course Hospital Course This is a 22-year-old G7 now P4 who was admitted at 37 weeks 0 days gestation in active labor. She had a normal spontaneous vaginal delivery of a viable male . Mother did well after delivery. She had plan to have a bilateral tubal ligation but changed her mind when she got to the OR. She was agreeable to starting Depo-Provera prior to discharge. She had some mild thrombocytopenia and anemia. She will be discharged home on iron. Physical Exam Narrative: Alert and oriented, walking in the hallway, heart regular rate and rhythm, lungs clear to auscultation bilaterally, abdomen is soft and nontender, extremities have no calf tenderness Urinary Catheter Management: Willis: Cath Placed During This Visit: yes Reason for Continuing Indwelling Catheter: Required Immobilization for Trauma or Surgery or Anesthesia Urinary Catheter Date of Insertion: 12/19/22 Urinary Catheter Time of Insertion: : Discharge Data Studies Completed and Pending Laboratory Results WBC 9.2 10^3/uL (4.0-10.0) 12/19/22 22:37 RBC 3.15 10^6/uL (4.1-5.3) L 12/19/22 22:37 Hgb 7.7 g/dL (11.5-15.3) L 12/19/22 22:37 Hct 25.4 % (37.0-47.0) L 12/19/22 22:37 MCV 80.6 fl (81-99) L 12/19/22 22:37 MCH 24.4 pg (28.0-34.0) L 12/19/22 22:37 MCHC 30.3 g/dL (30.0-36.0) 12/19/22 22:37 RDW 15.5 % (12.1-15.1) H 12/19/22 22:37 Plt Count 121 10^3/cmm (130-400) L 12/19/22 22:37 MPV 12.5 fL (7.4-10.4) H 12/19/22 22:37 Neut % (Auto) 74.0 % 12/19/22 10:08 Lymph % (Auto) 18.0 % 12/19/22 10:08 [place] % (Auto) 6.5 % 12/19/22 10:08 Eos % (Auto) 0.2 % 12/19/22 10:08 Baso % (Auto) 0.3 % 12/19/22 10:08 Neut # (Auto) 6.40 10^3/uL (1.8-7.7) 12/19/22 10:08 Lymph # (Auto) 1.6 10^3/uL (0.8-4.8) 12/19/22 10:08 [place] # (Auto) 0.6 10^3/uL (0.2-0.9) 12/19/22 10:08 Eos # (Auto) 0.0 10^3/uL (0.0-0.8) 12/19/22 10:08 Baso # (Auto) 0.0 10^3/uL (0.0-0.1) 12/19/22 10:08 Nucleated RBC % (auto) 0 % 12/19/22 10:08 Nucleated RBCs # 0.0 /100WBC 12/19/22 10:08 Urine Opiates Screen Negative ng/mL (Negative) 12/18/22 22:13 Ur Barbiturates Screen Negative ng/mL (Negative) 12/18/22 22:13 Ur Phencyclidine Scrn Negative ng/mL (Negative) 12/18/22 22:13 Ur Amphetamines Screen Negative ng/mL (Negative) 12/18/22 22:13 U Benzodiazepines Scrn Negative ng/mL (Negative) 12/18/22 22:13 Urine Cocaine Screen Negative ng/mL (Negative) 12/18/22 22:13 U Marijuana (THC) Screen Negative ng/mL (Negative) 12/18/22 22:13 Blood Type B Positive 12/18/22 22:13 Rho(D) Type Positive 12/18/22 22:13 Antibody Screen Negative 12/18/22 22:13 Vitals Last Vital Signs Temp 97.9 F 12/20/22 09:58 Pulse 72 12/20/22 09:58 Resp 16 12/20/22 09:58 BP 113/78 12/20/22 09:58 Pulse Ox 96 12/20/22 04:15 O2 Del Method Room Air 12/20/22 09:58 Discharge Plan Discharge Patient Disposition: Home Prescriptions: New ferrous sulfate [FeroSul] 325 mg (65 mg iron) tablet 325 mg PO DAILY Qty: 30 2RF Discharge Orders: Discharge Order (Routine); Ordered 12/20/22 Ordered By: Jennifer Acevedo Referrals: Jennifer Acevedo MD [Physician] - 6 Weeks Discharge Diet: Usual diet Discharge Activity: Limit activity as instructed Patient Instructions: Depression (DC), Bleeding (DC), Preeclampsia and Eclampsia After Delivery (GEN), Hemorrhage (GEN), OB Discharge Report, OB Food/Drug Interaction Guide, OB Home Care, OB Vaginal Deliveries, Abnormal Bleeding Discharge Attestations Time Spent in Discharge Care*: less than 30 min Quality Metrics Clinical Quality Measures [ No reported AMI, CVA or VTE this stay] Coding Level of Care Code Acute Code for Chg Fwd Diagnoses
--- NOTE | 2022-12-20 13:51 | PC.NURSE ---
Patient was prepared for her inpatient bilateral tubal ligation, patient was walked to the OR after she had visited with [employer]. Patient independently lay down on the OR table. Patient then sat back up and stated that she couldn't do this. This RN talked with patient to see if she was nervous about a specific part. She again stated that she did not want to proceed with the procedure. This RN reassured patient and assisted her back to her room. MD was notified of patient decision.
[2022-12-20] MEDS: medroxyprogesterone 150 mg/ml SDV 1 mL IM (15:20)
[2022-12-20] MEDS: ibuprofen 800 mg tablet PO (15:20)
[2022-12-20] MEDS: measles,mumps,rubella pf Vial (w/diluent) 0.5 ML SUBCUT (15:20)
[2022-12-20 15:25] VITALS: BP 112/72; PULSE 70; RESP 16; TEMP 36.8
== END 2022-12-20 15:45 | disposition home or self-care (01) | DRG 807 ==
LOC: OPOB 09:01 → OBGYN 09:01
PROVIDERS: Absent Provider Family Medicine; Admitting Provider Family Medicine; PCP Family Medicine; Visit Provider Family Medicine
DX: O99.12 Other diseases of the blood and blood-forming organs and certain disorders involving the immune mechanism complicating childbirth (principal); Z37.0 Single live birth; D69.6 Thrombocytopenia, unspecified; Z3A.37 37 weeks gestation of pregnancy; O75.89 Other specified complications of labor and delivery; K21.9 Gastro-esophageal reflux disease without esophagitis
CPT/HCPCS: 36415; 51702; 59025; 59409; 80306; 83986; 85025; 85027; 86850; 86900; 90707; 96372; 96374; 96376; 99211; J0290; J0330; J0690; J1050; J1100; J1885; J2405; J2704; J2765; J2795; J3010; J7120; J7121

== ENCOUNTER 2023-04-15 19:34 | Emergency (ER) | payer MEDICAID, SELFPAY ==
[2023-04-15 19:58] VITALS: BP 121/85; PULSE 77; RESP 17; TEMP 36.8; O2SAT 100; BMI 24.0
== END 2023-04-15 21:20 | disposition left against medical advice (07) ==
PROVIDERS: Emergency Provider Family Medicine; PCP Family Medicine
DX: Z53.21 Procedure and treatment not carried out due to patient leaving prior to being seen by health care provider (principal)

== ENCOUNTER → 2023-06-24 14:02 | Outpatient (BNVA) | payer MEDICAID, SELFPAY | PROVIDERS: PCP Family Medicine; Visit Provider Nurse Practitioner | DX: R09.81 Nasal congestion (principal) | CPT/HCPCS: 87400 ==